=== PATIENT | female | born 1955 | race Caucasian/White ===

== ENCOUNTER 2020-05-31 10:49 | Outpatient (CLI) | payer OTHER, SELFPAY ==
--- NOTE | 2020-05-31 10:54 | MM_ITS ---
WS: [id number] BILATERAL DIGITAL SCREENING MAMMOGRAPHY WITH CAD CLINICAL INFORMATION: SCREENING HISTORY: Screening mammogram. No current complaints. COMPARISON: April 20, 2019 TECHNIQUE: Bilateral CC and MLO views. FINDINGS: The breasts are composed of heterogeneous fibroglandular density tissue, which can limit the detectio n of small underlying mass lesions. No suspicious mass, asymmetry, calcifications, or architectural d istortion. No evidence of malignancy. Punctate calcifications left breast MM/[id number] IMPRESSION: BI-RADS: 2-Benign FOLLOW UP: 1 Year Follow-up Recommend return to annual screening mammography.
== END 2020-05-31 10:50 | disposition home or self-care (01) ==
LOC: RADSHAW 10:52
PROVIDERS: PCP Nurse Practitioner; Visit Provider Nurse Practitioner
DX: Z12.31 Encounter for screening mammogram for malignant neoplasm of breast (principal)
CPT/HCPCS: 77067

== ENCOUNTER 2021-06-03 08:09 | Outpatient (CLI) | payer OTHER, SELFPAY ==
--- NOTE | 2021-06-03 08:17 | MM_ITS ---
WS: [id number] Bilateral screening digital mammogram, 06/03/2021 Clinical Data: SCREENING Comparison: 05/31/2020, 06/01/2019, 04/25/2019. Findings: The breast parenchymal pattern shows heterogeneous density No spiculated masses or clustered calcific ations are seen. There are no secondary signs of carcinoma. MM/[id number] Impression: 1. Negative bilateral mammogram unchanged. 2. Recommend annual screening mammograms. BIRADS: 1-Negative FOLLOW UP: 1 Year Follow-up The CAD ends down checker was used.
== END 2021-06-03 08:10 | disposition home or self-care (01) ==
LOC: RADSHAW 08:12
PROVIDERS: PCP Nurse Practitioner; Visit Provider Nurse Practitioner
DX: Z12.31 Encounter for screening mammogram for malignant neoplasm of breast (principal)
CPT/HCPCS: 77067

== ENCOUNTER 2022-02-19 09:18 | Inpatient (IN) | payer OTHER, SELFPAY ==
[2022-02-19] VITALS (20 sets, daily range): BP systolic 105–128; BP diastolic 55–72; PULSE 83–98; RESP 16–91; TEMP 38.2–38.6; O2SAT 90–98; BMI 22.6
--- NOTE | 2022-02-19 09:32 | ED_ITS ---
HPI - Fever General: Chief Complaint: Fever Stated Complaint: fever, cough , chills Time Seen by Provider: 02/19/22 09:32 History of Present Illness: Ms. Tucker is a 66-year-old lady with history of hypertension, hyperlipidemia who presents to the emergency department due to fever and generalized symptoms. Onset of symptoms was 10 days ago and gradual. She endorses daily symptoms which have waxed and waned in intensity and are currently moderate. She endorses generalized malaise, cough which is nonproductive, fevers, nausea. Overall course of symptoms has persisted. No ot her specific changes in health, exacerbating, or alleviating factors identified. Onset (ago): day(s) Measured temperature: 103 F Associated symptoms: Reports cough and nausea Review of Systems General: Reports: 10 or more systems reviewed and unremarkable except in HPI and below GI: Reports: nausea PFSH ED PFSH: Medical History (Updated 03/04/22 @ 15:01 by Bo Anton MD) Hyperlipidemia Hypertension Hypothyroidism Surgical History (Updated 02/27/22 @ 09:22 by Sylvester Dyer MD) History of hysterectomy with bilateral oophorectomy [place], [place] History of tonsillectomy S/P bronchoscopy (02/20/22) Bronchoscopy with EBUS Family History (Updated 02/27/22 @ 08:41 by Nieves Santa LPN) Mother Cancer ovarian Father Dementia Other CAD (coronary artery disease) Hyperlipidemia Hypertension Denies family history of Clotting disorder Psychiatric illness Chronic kidney disease (CKD) Suicide Anesthesia complication Bleeding disorder Lung disease Stroke Social History (Updated 02/27/22 @ 08:41 by Nieves Santa LPN) Smoking and tobacco status: former smoker Quit status (tobacco): has quit using tobacco Former quit date comment: Patient started smoking at age 20, smoked until 8 years ago Alcohol intake: never Physical Exam Const: COMMON NORMALS: alert GENERAL APPEARANCE: cooperative, well developed and ill appearing (somewhat) HENMT: COMMON NORMALS: normocephalic and atraumatic HEAD & SCALP: normocephalic and atraumatic Eye: COMMON NORMALS: conjunctivae normal CONJUNCTIVA: Yes conjunctivae normal SCLERA: sclerae normal Neck/C-Spine: COMMON NORMALS: supple GENERAL: Yes trachea midline Resp: EFFORT & INSPECTION: Yes able to speak in complete sentences AUSCULTATION: diminished lung sounds Cardio: COMMON NORMALS: regular rate and regular rhythm RATE: regular rate RHYTHM: regular rhythm GI: COMMON NORMALS: Soft to palpation PALPATION: Yes Soft to palpation and No Tenderness to palpation present (GI) PERCUSSION: normal to percussion Extremity: GENERAL: Yes normal exam except as noted and No edema Neuro: COMMON NORMALS: moves all extremities SENSORIUM/ORIENTATION: Yes alert and No Orientation impaired Psych: COMMON NORMALS: mental status grossly normal and Normal thought process present THOUGHT PROCESS: Normal thought process present Course ED course: - Patient was seen and evaluated by me at bedside - Patient placed on cardiac monitors, IV access obtained - Initial evaluation notable for exam as above, ill appearance - Labs and xrays personally interpreted by me - Antibiotics and fluids ordered - Labs notable for leukocytosis, normal hemoglobin. Metabolic panel with evidence of dehydration. Magnesium and potassium replenishment ordered. Transaminitis of uncertain etiology possibly secondary to overall illness. - Imaging notable for large region of consolidation in atypical location in the left upper lobe. Given location further characterization with CT imaging felt to be warranted. Additionally given transaminitis abdomen pelvis was included. Left hilar mass and lymphadenopathy suspicious patient with postobstructive pneumonia. Results were discussed with the patient including likely diagnosis of cancer. - Upon serial reexamination after treatment the patient was only mildly improved. She does have a new oxygen requirement. Given evidence of sepsis patient requires further inpatient management for IV antibiotics. - Based on patient history, evaluation, and testing as interpreted the most likely cause of the patient's condition is postobstructive pneumonia secondary to newly identified lung cancer/mass with evidence of sepsis and new oxygen requirement - The results of ED evaluation were discussed with the patient including plan for admission due to requirement for level of care not available if discharged to prevent significant worsening/deterioration. - Admitting service was contacted and Dr Vidal with the hospitalist service agreed to admit the patient. Pulmonology consulted. - Patient was admitted without further deterioration or significant events. Note: Click bubbles or prepopulated pérez in note writing are used for assistance with data collection and billing and are inherently more limited than narrative and other text portions of this note. Please use narrative for additional clinical history and defer to narrative/free test for any case of contradictory information. If information appears in only free text or click bubble it should be considered present or absent as reported. Please contact note procedure writer for clarifications of clinical information or contradictory information. MDM is a brief summary, contradictory or erroneous seeming information should be clarified and full note should be reviewed. Vital Signs: Vital signs: Vital Signs Temperature 98.0 F 02/23/22 07:41 Pulse Rate 93 02/23/22 08:41 Respiratory Rate 17 02/23/22 08:00 Blood Pressure 92/58 02/23/22 07:41 Pulse Oximetry 96 02/23/22 08:42 MDM - Fever Medical Decision Making 66-year-old lady presented with respiratory symptoms. Patient found to have likely new lung cancer with postobstructive pneumonia and sepsis. Admitted for further management. Medical Records I reviewed the patient's medical records. Lab Data I reviewed the patient's lab results. : 02/23/22 03:02 02/23/22 03:02 Radiology Impressions Chest X-Ray 02/19/22 09:52 IMPRESSION: 1. Large consolidated density with associated pleural thickening seen in the left upper lobe and left suprahilar region. This may represent densely consolidated pneumonia or a mass. 2. Fibrous scarring seen in the right upper lobe but the right lung is otherwise clear. Chest/Abdomen/Pelvis CT 02/19/22 10:41 IMPRESSION: 1. Partial LEFT upper lobe collapse with dense consolidation and a few air bronchograms proximally. LEFT hilar mass or lymphadenopathy measuring 2.3 x 2.5 CM suspicious for neoplasm. Recommend further evaluation with bronchoscopy 4 2. No anterior mediastinal or RIGHT hilar lymphadenopathy. 3. No evidence of metastatic disease in the abdomen or pelvis on this noncontrast examination. 4. Peripherally calcified low-attenuation RIGHT renal lesion likely renal cyst measuring 1.8 cm. This can be further evaluated ultrasound. 5. No other acute findings. Laboratory Results WBC 17.1 10^3/uL (4.0-10.0) H 02/19/22 09:48 RBC 4.11 10^6/uL (4.1-5.3) 02/19/22 09:48 Hgb 11.7 g/dL (11.5-15.3) 02/19/22 09:48 Hct 33.3 % (37.0-47.0) L 02/19/22 09:48 MCV 81.0 fl (81-99) 02/19/22 09:48 MCH 28.5 pg (28.0-34.0) 02/19/22 09:48 MCHC 35.1 g/dL (30.0-36.0) 02/19/22 09:48 RDW 12.1 % (12.1-15.1) 02/19/22 09:48 Plt Count 476 10^3/cmm (130-400) H 02/19/22 09:48 MPV 8.8 fL (7.4-10.4) 02/19/22 09:48 Neut % (Auto) 79.4 % 02/19/22 09:48 Lymph % (Auto) 10.4 % 02/19/22 09:48 [place] % (Auto) 7.9 % 02/19/22 09:48 Eos % (Auto) 1.1 % 02/19/22 09:48 Baso % (Auto) 0.5 % 02/19/22 09:48 Neut # (Auto) 13.60 10^3/uL (1.8-7.7) H 02/19/22 09:48 Lymph # (Auto) 1.8 10^3/uL (0.8-4.8) 02/19/22 09:48 [place] # (Auto) 1.4 10^3/uL (0.2-0.9) H 02/19/22 09:48 Eos # (Auto) 0.2 10^3/uL (0.0-0.8) 02/19/22 09:48 Baso # (Auto) 0.1 10^3/uL (0.0-0.1) 02/19/22 09:48 Nucleated RBC % (auto) 0 % 02/19/22 09:48 Nucleated RBCs # 0.0 /100WBC 02/19/22 09:48 Sodium 131 mmol/L (136-145) L 02/19/22 09:48 Potassium 3.0 mmol/L (3.5-5.1) L 02/19/22 09:48 Chloride 89 mmol/L (98-107) L 02/19/22 09:48 Carbon Dioxide 28 mmol/L (22-29) 02/19/22 09:48 Anion Gap 17.0 (5-19) 02/19/22 09:48 BUN 12 mg/dL (8-23) 02/19/22 09:48 Creatinine 0.7 mg/dL (0.5-0.9) 02/19/22 09:48 GFR Calculation 84.2 mL/min (90-130) L 02/19/22 09:48 Glucose 114 mg/dL (65-115) 02/19/22 09:48 Calculated Osmolality 273 mOsm/kg (285-295) L 02/19/22 09:48 Lactic Acid 0.8 mmol/L (0.5-2.2) 02/19/22 10:48 Calcium 8.7 mg/dL (8.5-10.5) 02/19/22 09:48 Magnesium 1.6 mg/dL (1.7-2.3) L 02/19/22 09:48 Total Bilirubin 0.6 mg/dL (0.15-1.2) 02/19/22 09:48 AST 117 U/L (0-32) H 02/19/22 09:48 ALT 158 U/L (0-33) H 02/19/22 09:48 Alkaline Phosphatase 441 IU/L (35-105) H 02/19/22 09:48 Total Protein 7.2 g/dL (6.6-8.7) 02/19/22 09:48 Albumin 3.3 g/dL (3.5-5.2) L 02/19/22 09:48 Globulin 3.9 g/dL (1.3-4.6) 02/19/22 09:48 Procalcitonin 0.28 ng/mL (0-0.5) 02/19/22 09:38 TSH 1.76 uIU/mL (0.27-4.20) 02/19/22 09:48 Urine Color Yellow (Yellow) 02/19/22 10:24 Urine Appearance Clear (CLEAR) 02/19/22 10:24 Urine pH 8 (5-7) H 02/19/22 10:24 Ur Specific [place] 1.005 (1.005-1.030) 02/19/22 10:24 Urine Protein Neg (Negative) 02/19/22 10:24 Urine Glucose (UA) Norm (Normal) 02/19/22 10:24 Urine Ketones Negative (Negative) 02/19/22 10:24 Urine Blood Neg (Negative) 02/19/22 10:24 Urine Nitrate Positive (Negative) H 02/19/22 10:24 Urine Bilirubin Neg (Negative) 02/19/22 10:24 Prot Sulfosalicylic Acd Negative (Negative) 02/19/22 10:24 Urine Urobilinogen Norm mg/dL (Negative) 02/19/22 10:24 Ur Leukocyte Esterase Negative (Negative) 02/19/22 10:24 Urine RBC None /hpf (0-2) 02/19/22 10:24 Urine WBC 5-10 /hpf (0-5) H 02/19/22 10:24 Ur Squamous Epith Cells 0-4 /hpf (0-5) H 02/19/22 10:24 Amorphous Sediment Not Reportable 02/19/22 10:24 Urine Bacteria 3+ /hpf (NONE) H 02/19/22 10:24 Coronavirus 229E (PCR) Not detected (NOT DETECT) 02/19/22 09:48 SARS-CoV-2 (PCR) Not detected (NOT DETECT) 02/19/22 09:48 Discharge Plan Discharge Patient Disposition: Placed in Observation Admit Provider: Farhad Vidal Clinical Impression: Community acquired pneumonia, Sepsis, Mass of left lung, Acute respiratory failure with hypoxia Discharge Diet: Regular Discharge Activity: Increase activity as tolerated Coding Level of Care Code ED Multi Share Program Coordinator for Chg Fwd Exam Comprehensive
--- NOTE | 2022-02-19 09:52 | XR_ITS ---
WS: [id number] Exam: XR chest 2V* [id number] Date/Time of Exam: 02/19/2022 9:55 AM Reason For Exam: sob, cough, fever No priors. Large consolidated density seen in the left upper lobe and left suprahilar region. The right lung is clear. Left apical pleural thickening noted. No pleural effusions. Heart size is normal. Bony structu res are intact. Recommendations: Contrast CT scanning of the chest recommended for further workup. XR/XR chest 2V* [id number] IMPRESSION: 1. Large consolidated density with associated pleural thickening seen in the le ft upper lobe and left suprahilar region. This may represent densely consolidat ed pneumonia or a mass. 2. Fibrous scarring seen in the right upper lobe but the right lung is otherwis e clear.
[2022-02-19 09:57] LABS: Basophils # 0.1 10^3/uL (0.0-0.1); Basophils % 0.5 %; Eosinophils # 0.2 10^3/uL (0.0-0.8); Eosinophils % 1.1 %; Hematocrit 33.3 % (37.0-47.0); Hemoglobin 11.7 g/dL (11.5-15.3); Lymphocytes # 1.8 10^3/uL (0.8-4.8); Lymphocytes % 10.4 %; Mean Corpuscular HGB Conc 35.1 g/dL (30.0-36.0); Mean Corpuscular Hemoglobin 28.5 pg (28.0-34.0); Mean Platelet Volume 8.8 fL (7.4-10.4); Monocytes # 1.4 10^3/uL (0.2-0.9); Monocytes % 7.9 %; Neutrophils % 79.4 %; Nucleated Red Blood Cells % 0 %; Platelet Count 476 10^3/cmm (130-400); Red Blood Count 4.11 10^6/uL (4.1-5.3); Red Cell Distribution Width 12.1 % (12.1-15.1); White Blood Count 17.1 10^3/uL (4.0-10.0)
[2022-02-19 10:23] LABS: Alanine Aminotransferase 158 U/L (0-33); Albumin Level 3.3 g/dL (3.5-5.2); Alkaline Phosphatase 441 IU/L (35-105); Aspartate Amino Transferase 117 U/L (0-32); Blood Urea Nitrogen 12 mg/dL (8-23); Calcium 8.7 mg/dL (8.5-10.5); Carbon Dioxide 28 mmol/L (22-29); Chloride 89 mmol/L (98-107); Globulin 3.9 g/dL (1.3-4.6); Glomerular Filtration Rate 84.2 mL/min (90-130); Glucose 114 mg/dL (65-115); Osmolality Calculated 273 mOsm/kg (285-295); Sodium 131 mmol/L (136-145); Thyroid Stimulating Hormone 1.76 uIU/mL (0.27-4.20); Total Bilirubin 0.6 mg/dL (0.15-1.2); Total Protein 7.2 g/dL (6.6-8.7)
--- NOTE | 2022-02-19 10:41 | CT_ITS ---
WS: [id number] CT CHEST, ABDOMEN, AND PELVIS TECHNIQUE: Noncontrast CT of the chest, abdomen, and pelvis with coronal and sagittal reformatted destin ges. CLINICAL INFORMATION: MONTSE abnormal on cxr, eval mass vs pneumonia COMPARISON: None. DLP: 994.[address] scans at [facility] use at least one of these dose optimization techniques: automated e xposure control; mA and/or kV adjustment per patient size (includes targeted exams where dose is matc hed to clinical indication); or iterative reconstruction. CT CHEST: Wedge-shaped LEFT upper lobe consolidation and collapse corresponds to the chest x-ray findings. Dens e consolidation in the LEFT lung apex suspicious with a few air bronchograms proximally.Associated na rrowing of the LEFT upper lobe bronchi. LEFT mainstem bronchus remains patent. Suggestion of LEFT hil ar mass/lymphadenopathy difficult to further evaluated without contrast. This measures approximately 2.3 x 2.5 CM.Recommend further evaluation with bronchoscopy. Normal caliber thoracic aorta. No axillary lymphadenopathy. Additional patchy infiltrates involving the remainder of the LEFT upper lobe anteriorly and laterally . LEFT lower lobe is well aerated. RIGHT lung is well aerated. Moderate chronic erythematous changes. Trace RIGHT pleural effusion. CT ABDOMEN AND PELVIS: Mild hepatomegaly. Noncontrast liver otherwise appears normal. Normal spleen. Small esophageal hiatal hernia. Adrenal glands are normal. No hydronephrosis in either kidney. Nonobstructing subcentimeter LEFT calyceal tip calculi. Noncontrast pancreas appears normal. Normal caliber abdominal aorta. Aortic calcification. No periaor tic lymphadenopathy. Shotty periaortic lymph nodes. Normal sigmoid colon. Normal appendix in the RIGHT lower quadrant. Tiny fat-containing umbilical michel ia. Partially calcified low-attenuation RIGHT renal lesion measuring 2 cm likely renal cyst. This can be followed up with ultrasound. CT/[place] [id number] IMPRESSION: 1. Partial LEFT upper lobe collapse with dense consolidation and a few air bro nchograms proximally. LEFT hilar mass or lymphadenopathy measuring 2.3 x 2.5 CM suspicious for neoplasm. Recommend further evaluation with bronchoscopy 4 2. No anterior mediastinal or RIGHT hilar lymphadenopathy. 3. No evidence of metastatic disease in the abdomen or pelvis on this noncontr ast examination. 4. Peripherally calcified low-attenuation RIGHT renal lesion likely renal cyst measuring 1.8 cm. This can be further evaluated ultrasound. 5. No other acute findings.
[2022-02-19] MEDS: cefTRIAXone 1,000 MG in sodium chloride 0.9% (plus) 50 ML 100 MG IV (10:46)
[2022-02-19] MEDS: sodium chloride 0.9% 1,000 ML 999 ML IV ×2 (10:49→12:55)
[2022-02-19 10:51] LABS: Specific Gravity, Urine 1.005 (1.005-1.030); Urine Appearance Clear (CLEAR); Urine Color Yellow (Yellow); pH Urine 8 (5-7)
[2022-02-19 10:52] LABS: Add Urine Microscopic? YES; Bilirubin Urine Neg (Negative); Blood Urine Neg (Negative); Glucose Urine UA Norm (Normal); Ketones Urine Negative (Negative); Leukocyte Esterase Urine Negative (Negative); Nitrate Urine Positive (Negative); Protein Urine Neg (Negative); Urobilinogen Urine Norm (Negative)
[2022-02-19 10:53] LABS: Add Urine Culture? Yes; Bacteria Urine 3+ /hpf; Squamous Epithelial Cell Urine 0-4 /hpf (0-5); Sulfosalicylic Acid Urine Negative (Negative)
[2022-02-19] MEDS: potassium chloride ER 20 mEq Tablet 40 MEQ PO (11:29)
[2022-02-19] MEDS: doxycycline 100 MG in sodium chloride 0.9% (plus) 100 ML IV (11:30)
[2022-02-19 11:38] LABS: Lactic Sepsis W/Reflex 0.8 mmol/L (0.5-2.2)
[2022-02-19 11:54] LABS: Adenovirus Not Detected (NOT DETECT); Chlamydia Pneumoniae Not Detected (NOT DETECT); Coronavirus 229E,HKU1,NL63,OC4 Not Detected (NOT DETECT); Human Metapneumovirus Not Detected (NOT DETECT); Human Rhinovirus/Enterovirus Not Detected (NOT DETECT); Influenza A Not Detected (NOT DETECT); Influenza A H1 Not Detected (NOT DETECT); Influenza A H1-2009 Not Detected (NOT DETECT); Influenza A H3 Not Detected (NOT DETECT); Influenza B Not Detected (NOT DETECT); Mycoplasma Pneumoniae Not Detected (NOT DETECT); Parainfluenza Virus Type 1 Not Detected (NOT DETECT); Parainfluenza Virus Type 2 Not Detected (NOT DETECT); Parainfluenza Virus Type 3 Not Detected (NOT DETECT); Parainfluenza Virus Type 4 Not Detected (NOT DETECT); Respiratory Syncytial Virus A Not Detected (NOT DETECT); Respiratory Syncytial Virus B Not Detected (NOT DETECT); SARS-COV-2 Not Detected (NOT DETECT)
[2022-02-19 12:08] LABS: Magnesium 1.6 mg/dL (1.7-2.3)
--- NOTE | 2022-02-19 13:12 | PM.HP ---
Providers/Chief Complaint Primary Care Provider: HERNANDEZ Ferreira Chief Complaint: fever, cough , chills History of Present Illness Des Tucker is a 66 year old female who carries history of smoking, she started smoking when she was 20 years old and Smoking until 8 years ago, no use of alcohol, does not carry significant past medical history presented today with chief complaint of not feeling well generalized fatigue and lethargy. Patient is stating that her symptoms started on Wednesday last week with fatigue, lethargy and febrile episodes. She is endorsing unintentional weight loss, night sweats. She has not noticed any chest pain, nausea, vomiting or diarrhea. She does not use any medications other than antihypertensive and statins at home. No one else at home has been diagnosed with COVID. No one else at home has similar symptoms. Diagnostics in the ER revealed sepsis related to postobstructive pneumonia, I have requested lactic acid, requested ER physician to give another 1 L bolus as per septic protocol Blood cultures have been taken, I will start her on broad-spectrum antibiotics transfer her to ICU Dr. Mann planning for bronchoscopy 12:30 PM tomorrow All of her questions were answered, sister was at the bedside COVID swab requested, I am also requesting MRSA PCR Review of Systems Const: Reports: fever(s), chills, body aches, change in appetite, change in weight, fatigue, malaise and night sweats Eyes: Denies: change in vision ENMT: Denies: throat pain Card: Denies: chest pain Resp: Reports: dyspnea and non-productive cough GI: Denies: abdominal pain : Denies: flank pain Musc: Denies: neck pain Skin/Breast: Denies: rash Neuro: Denies: headache(s) Psych: Denies: anxiety Endo: Denies: polyuria Pranav/Lymph: Denies: easy bruising All/Imm: Denies: urticaria Medications/Allergies Home Medications Medication Instructions Recorded Confirmed Last Taken Type amlodipine 2.5 mg tablet 2.5 mg PO DAILY 02/19/22 02/19/22 02/18/22 History atorvastatin 20 mg tablet 10 mg PO DAILY 02/19/22 02/19/22 02/18/22 History hydrochlorothiazide 25 mg tablet 25 mg PO DAILY 02/19/22 02/19/22 02/18/22 History levothyroxine 100 mcg tablet 100 mcg PO DAILY 02/19/22 02/19/22 02/18/22 History potassium chloride 20 mEq 10 meq PO DAILY 02/19/22 02/19/22 02/18/22 History tablet,extended release Allergies Allergy/AdvReac Type Severity Reaction Status Date / Time Penicillins Allergy ALGY-Rash Verified 02/19/22 09:27 PFSH Acute PFSH: Medical History Hyperlipidemia Hypertension Surgical History No significant past surgical history Family History (Updated 02/19/22 @ 14:33 by Farhad Vidal MD) Denies family history of Lung disease Social History (Updated 02/19/22 @ 14:33 by Farhad Vidal MD) Smoking and tobacco status: former smoker Quit status (tobacco): has quit using tobacco Former quit date comment: Patient started smoking at age 20, smoked until 8 years ago Vitals/I&O/Wt Last Vital Signs Temp 101.5 F H 02/19/22 09:23 Pulse 89 02/19/22 09:42 Resp 91 H 02/19/22 09:23 BP 116/66 02/19/22 09:42 Pulse Ox 91 02/19/22 09:42 02/18/22 02/19/22 02/19/22 22:59 06:59 14:59 Intake Total 1150 / 1150 Balance 1150 / 1150 Weight last 48 hrs Weight 63.503 kg Physical Exam Narrative: Very pleasant middle-aged female Nonfocal neuro exam Saturating well on 2 L nasal cannula Febrile Tachycardic Septic No conversational dyspnea Bilateral breath sounds slightly diminished on left side on posterior lung auscultation I did not appreciate crackles or rhonchi Abdomen soft No signs of edema Nonfocal neuro exam Very pleasant and cooperative Sister at the bedside S1, S2 No murmur appreciated Cold sore/aphthous ulcer below her lower lip does not look like shingles vesicles Data : 02/19/22 09:48 02/19/22 09:48 Micro: Microbiology 02/19/22 10:48 Blood Culture - Preliminary Blood SPECIMEN COLLECTED 02/19/22 10:48 Blood Culture - Preliminary Blood SPECIMEN COLLECTED A&P Assessment and plan (1) Community acquired pneumonia: Status: Acute (2) Sepsis: Status: Acute (3) Mass of left lung: Status: Acute (4) Hyperlipidemia: Status: Acute (5) Hypertension: Status: Acute (6) Postobstructive pneumonia: Status: Acute Plan Sepsis related to Postobstructive pneumonia Patient has been endorsing B-cell symptoms such as fever, night sweats, weight loss Lung mass Significant smoking history Start patient on broad-spectrum antibiotics Requested COVID and MRSA PCR Broad-spectrum antibiotics with IV fluid Septic bolus has been given in the ER, requested lactic acid Sepsis criteria met with leukocytosis, fever, Hypomagnesemia: Repleted Hypokalemia: Repleted patient is denying vomiting and diarrhea Her sodium is 131 clinically does show signs of dehydration, start gentle fluid hydration Abnormal transaminases CT scan of abdomen did not show any mets, hepatomegaly, check lipid panel and hemoglobin A1c, History of hypertension: Currently she is normotensive Patient is full code Regular diet n.p.o. after midnight for bronchoscopy tomorrow Dr. Mann is consulted DVT prophylaxis on hold for bronchoscopy tomorrow Attestations Medical Necessity Statement*: Anticipating more than 2 midnights for management of sepsis related to postoperative pneumonia, Time Spent in Patient Care: 40 Coding Level of Care Code Acute Web Editor for Nhung Contreras Diagnoses Community acquired pneumonia J18.9 Sepsis A41.9 Mass of left lung R91.8 Hyperlipidemia E78.5 Hypertension I10 Postobstructive pneumonia J18.9
--- NOTE | 2022-02-19 14:38 | USCV_ITS ---
Des Tucker Age: 66 Gender: F : 1955 Exam Date: 02/19/2022 15:46 Ordering Phys: Farhad Vidal MD Technologist: MISAEL Exam Location: [facility] – [place] Indication: Lung mass BP: 117 / 56 HR: 83 Rhythm: Sinus Technical Quality: Adequate MEASUREMENTS (Male / Female) Normal Values 2D ECHO LV Diastolic Diameter PLAX 3.7 cm 4.2 - 5.9 / 3.9 - 5.3 cm LV Systolic Diameter PLAX 2.5 cm IVS Diastolic Thickness 0.9 cm 0.6 - 1.0 / 0.6 - 0.9 cm IVS Systolic Thickness 1.4 cm LVPW Diastolic Thickness 1.3 cm 0.6 - 1.0 / 0.6 - 0.9 cm LVPW Systolic Thickness 1.8 cm RV Chamber Size 2.5 cm LVOT Diameter 2.0 cm LV Ejection Fraction 2D Teich 61.1 % LV Ejection Fraction MOD 2C 71.4 % LV Ejection Fraction 2C AL 72.5 % LA Diameter 2.9 cm LA Width 2.8 cm LA Height 3.9 cm RA Width 2.2 cm RA Height 3.5 cm Aorta at Sinotubular Diameter 2.6 cm IVC Diameter 2.2 cm M-MODE Aortic Annulus Diameter 3.3 cm LA Ao Ratio MM 0.9 MV E Point Septal Separation 0.5 cm DOPPLER AV Peak Velocity 134.0 cm/s LVOT Peak Velocity 105.0 cm/s AV Area Cont Eq vti 2.3 cm squared AV Area Cont Eq pk 2.5 cm squared MV Area PHT 4.2 cm squared Mitral E to A Ratio 0.9 MV E' Velocity 46.0 cm/s Mitral E to MV E' Ratio 5.7 Mitral E to LV E' Lateral Ratio 6.8 Mitral E to LV E' Septal Ratio 5.0 TR Peak Velocity 245.3 cm/s TR Peak Gradient 24.1 mmHg TR Mean Velocity 197.0 cm/s TR Mean Gradient 17.3 mmHg TR Velocity Time Integral 62.4 cm TV Peak E Velocity 49.0 cm/s Right Atrial Pressure 3.0 mmHg Pulmonary Artery Systolic Pressu 27.1 mmHg PV Peak Velocity 92.0 cm/s RV Acceleration Time 0.1 s RV Ejection Time 0.3 s RV AcT/ET 0.4 FINDINGS Left Ventricle Normal left ventricular size, systolic function and wall thickness, with no regional wall motion abnormalities. Left ventricular ejection fraction is estimated at 64 %. Normal diastolic function. Right Ventricle Normal right ventricular size and systolic function. Right ventricular systolic pressure 36 mmHg. Right Atrium Normal right atrial size. Left Atrium Normal left atrial size. Mitral Valve Structurally normal mitral valve. No mitral valve stenosis. Trace mitral valve regurgitation. Aortic Valve Structurally normal trileaflet aortic valve. No aortic valve stenosis. No aortic valve regurgitation. Tricuspid Valve Structurally normal tricuspid valve. No tricuspid valve stenosis. Trace tricuspid valve regurgitation. Pulmonic Valve Structurally normal pulmonic valve. No pulmonary valve stenosis. Trace pulmonary valve regurgitation. Pericardium No pericardial effusion. Aorta Normal size aortic root and proximal ascending aorta. IVC Mildly dilated IVC. Normal respiratory variation. CONCLUSIONS 1. Normal left ventricular size, systolic function and wall thickness, with no regional wall motion abnormalities. Left ventricular ejection fraction is estimated at 64 %. Normal diastolic function. 2. Normal right ventricular size and systolic function. 3. Upper normal pulmonary artery pressure. 4. No significant valve abnormalities. 5. No prior similar studies to compare. Brittany Rivera MD (Electronically Signed) Final Date: 19 February 2022 16:52 S
[2022-02-19] MEDS: potassium chloride ER 20 mEq Tablet PO (15:24)
[2022-02-19] MEDS: sodium chloride 0.9% 1,000 ML 75 ML IV (15:24)
[2022-02-19] MEDS: aztreonam 1,000 MG in sodium chloride 0.9% (plus) 50 ML 100 MG IV (15:49)
[2022-02-19] MEDS: clindamycin 600 MG/50 ML PREMIX 100 MG IV ×2 (15:50→22:16)
[2022-02-19 16:01] LABS: Procalcitonin 0.28 ng/mL (0-0.5)
[2022-02-19] MEDS: vancomycin 1,000 MG in sodium chloride 0.9% 250 ML 250 MG IV (16:30)
[2022-02-19 17:06] LABS: Lactic Sepsis W/Reflex 1.1 mmol/L (0.5-2.2)
--- NOTE | 2022-02-19 18:30 | PC.NURSE ---
Pt resting in bed, 1LNC in use. Denies any needs. VSS. Remains slightly febrile. Ambulates to bathroom with minimal assist. Will monitor.
[2022-02-19] MEDS: ipratropium-albuterol 3 mL Neb INHALATION (20:05)
[2022-02-19] MEDS: budesonide 0.5 mg/2 mL Neb INHALATION (20:05)
[2022-02-19] MEDS: acetaminophen 500 mg Tablet PO (22:16)
[2022-02-20] VITALS (31 sets, daily range): BP systolic 81–124; BP diastolic 51–66; PULSE 65–96; RESP 4–35; TEMP 36.4–39.1; O2SAT 85–99
[2022-02-20] MEDS: aztreonam 1,000 MG in sodium chloride 0.9% (plus) 50 ML 100 MG IV ×2 (02:30→14:58)
[2022-02-20] MEDS: sodium chloride 0.9% 1,000 ML 75 ML IV ×2 (04:39→20:13)
[2022-02-20] MEDS: acetaminophen 500 mg Tablet PO (04:58)
[2022-02-20 05:02] LABS: ABG PCO2 31.4 mmHg (35-45); ABG PH Result 7.54 (7.35-7.45); Arterial Blood Gas Hematocrit 46.6 % (37-47); Base Excess ABG 4.5 mmol/L (-2.0-2.0); Blood Gas Operator Identificat JB; Blood Gas Sample Site Brachial, right; Blood Gas Sample Type Arterial; HCO3 ABG 26.6 mmol/L (22-26); Oxygen Device ROOM AIR; PO2 ABG 48.3 mmHg (80.0-100.0)
[2022-02-20 05:47] LABS: Basophils # 0.1 10^3/uL (0.0-0.1); Basophils % 0.4 %; Eosinophils % 0.2 %; Hematocrit 29.4 % (37.0-47.0); Hemoglobin 10.2 g/dL (11.5-15.3); Lymphocytes # 1.3 10^3/uL (0.8-4.8); Lymphocytes % 6.9 %; Mean Corpuscular HGB Conc 34.7 g/dL (30.0-36.0); Mean Corpuscular Hemoglobin 28.3 pg (28.0-34.0); Mean Corpuscular Volume 81.4 fl (81-99); Mean Platelet Volume 9.2 fL (7.4-10.4); Monocytes # 1.1 10^3/uL (0.2-0.9); Monocytes % 5.8 %; Neutrophils # 15.54 10^3/uL (1.8-7.7); Neutrophils % 85.8 %; Nucleated Red Blood Cells % 0 %; Platelet Count 413 10^3/cmm (130-400); Red Blood Count 3.61 10^6/uL (4.1-5.3); Red Cell Distribution Width 12.3 % (12.1-15.1); White Blood Count 18.1 10^3/uL (4.0-10.0)
[2022-02-20] MEDS: lanolin oint 7 gm 1 APPLIC TOPICAL (06:05)
[2022-02-20 06:07] LABS: Anion Gap 15.9 (5-19); Blood Urea Nitrogen 9 mg/dL (8-23); C Reactive Protein 164.9 mg/L (0.0-4.9); Calcium 7.8 mg/dL (8.5-10.5); Carbon Dioxide 24 mmol/L (22-29); Chloride 99 mmol/L (98-107); Glomerular Filtration Rate 100.6 mL/min (90-130); Glucose 118 mg/dL (65-115); Magnesium 1.4 mg/dL (1.7-2.3); Osmolality Calculated 282 mOsm/kg (285-295); Phosphorus 1.8 mg/dL (2.5-4.5); Sodium 136 mmol/L (136-145)
[2022-02-20 06:16] LABS: Potassium 2.9 mmol/L (3.5-5.1)
[2022-02-20] MEDS: clindamycin 600 MG/50 ML PREMIX 100 MG IV (06:47)
[2022-02-20] MEDS: lidocaine 1% 5 ML in potassium chloride premix 100 ML 25 ML IV (06:57)
[2022-02-20] MEDS: levothyroxine 100 mcg Tablet PO (07:59)
[2022-02-20] MEDS: ipratropium-albuterol 3 mL Neb INHALATION ×2 (08:06→19:50)
[2022-02-20] MEDS: budesonide 0.5 mg/2 mL Neb INHALATION ×2 (08:06→19:50)
--- NOTE | 2022-02-20 09:27 | P.CONIM_ITS ---
Providers/Reason For Consult Consulting Physician/Specialty*: Pulmonary critical care medicine Reason for Consult*: Suspected lung cancer, postobstructive pneumonia Requesting Physician: Farhad Vidal MD Attending Physician: Farhad Vidal MD Primary Care Provider: HERNANDEZ Ferreira History of Present Illness History of Present Illness Des Tucker is a 66 year old female who came in yesterday with a complaints of generalized fatigue, weakness, fever. The patient has an extensive history of smoking. She quit smoking approximately 10 years ago. A chest x-ray in the emergency department revealed consolidation in the left upper lobe. This was followed by CT scan of the chest. The CT chest revealed masslike consolidative lesion in the left upper lobe primarily involving the anterior and apical segments. There is narrowing of the airways. This looks more like malignancy than consolidation. There is also a left hilar lymph node. The CT abdomen pelvis did not reveal any obvious sign of metastatic lesion. The patient was seen and examined in the ICU. The patient tells me that she is doing better than before. The patient was hypotensive and was treated with IV fluid. The patient is scheduled for bronchoscopic evaluation today. Review of Systems Narrative: General: Fever, night sweats, chills, body ache, loss of appetite, weight loss Skin: No rash HEENT: No nasal congestion, rhinitis, sinusitis Neck: There is no neck swelling Respiratory: Cough, sputum production, no hemoptysis Cardiovascular: No chest pain, orthopnea, paroxysmal nocturnal dyspnea Gastrointestinal: No abdominal pain, nausea, vomiting Musculoskeletal: No joint pain or swelling, muscle weakness Neurological: Patient is awake alert and oriented x3, no paralysis, gross motor function is normal. Psychiatric: No anxiety or depression. Medications/Allergies Home Medications Medication Instructions Recorded Confirmed Last Taken Type amlodipine 2.5 mg tablet 2.5 mg PO DAILY 02/19/22 02/19/22 02/18/22 History atorvastatin 20 mg tablet 10 mg PO DAILY 02/19/22 02/19/22 02/18/22 History hydrochlorothiazide 25 mg tablet 25 mg PO DAILY 02/19/22 02/19/22 02/18/22 History levothyroxine 100 mcg tablet 100 mcg PO DAILY 02/19/22 02/19/22 02/18/22 History potassium chloride 20 mEq 10 meq PO DAILY 02/19/22 02/19/22 02/18/22 History tablet,extended release Allergies Allergy/AdvReac Type Severity Reaction Status Date / Time Penicillins Allergy ALGY-Rash Verified 02/19/22 09:27 Current Medications Generic Name Dose Route Start Last Admin Trade Name Makq PRN Reason Stop Dose Admin Acetaminophen 500 mg 02/19/22 14:38 02/20/22 04:58 Acetaminophen 500 Mg Tablet PO 500 mg Q4H PRN Administration fever Albuterol/Ipratropium 3 ml 02/19/22 14:38 02/20/22 08:06 Ipratropium-Albuterol 3 Ml Neb INHALATION 3 ml Q6H PRN Administration SHORTNESS OF BREATH Budesonide 0.5 mg 02/19/22 20:00 02/20/22 08:06 Budesonide 0.5 Mg/2 Ml Neb INHALATION 0.5 mg BID.RESPIRATORY TAURUS Administration Sodium Chloride 1,000 mls @ 75 mls/hr 02/19/22 14:38 02/20/22 04:39 Sodium Chloride 0.9% IV 75 mls/hr .[id number] TAURUS Administration Aztreonam 1,000 mg/ Sodium 50 mls @ 100 mls/hr 02/19/22 15:00 02/20/22 04:53 Chloride IV Infused Q12H TAURUS Infusion Protocol Clindamycin HCl/Dextrose 600 mg in 50 mls @ 100 mls/hr 02/19/22 15:00 02/20/22 07:25 Cleocin IV Infused Q8H TAURUS Infusion Protocol Vancomycin HCl 1,000 mg/ 250 mls @ 250 mls/hr 02/19/22 16:00 02/19/22 17:39 Sodium Chloride IV Infused Q18H TAURUS Infusion Lidocaine HCl 5 ml/ Potassium 105 mls @ 25 mls/hr 02/20/22 06:47 02/20/22 06:57 Chloride IV 02/20/22 10:58 25 mls/hr ONCE ONE Administration Lanolin 1 applic 02/20/22 05:03 02/20/22 06:05 Lanolin Oint 7 Gm TOPICAL 1 applic PRN PRN Administration DRYNESS Levothyroxine Sodium 100 mcg 02/20/22 09:00 02/20/22 07:59 Levothyroxine 100 Mcg Tablet PO 100 mcg DAILY TAURUS Administration PFSH Acute PFSH: Medical History Hyperlipidemia Hypertension Surgical History No significant past surgical history Family History Denies family history of Lung disease Social History Smoking and tobacco status: former smoker Quit status (tobacco): has quit using tobacco Former quit date comment: Patient started smoking at age 20, smoked until 8 years ago Vitals/I&O/Wt Last Vital Signs Temp 99.5 F 02/20/22 08:00 Pulse 82 02/20/22 08:24 Resp 16 02/20/22 08:06 BP 87/54 02/20/22 08:00 Pulse Ox 95 02/20/22 08:06 02/19/22 02/20/22 02/20/22 22:59 06:59 14:59 Intake Total 2362 / 3512 1093.75 / 4605.75 50 / 50 Balance 2362 / 3512 1093.75 / 4605.75 50 / 50 Weight last 48 hrs Weight 123 lb 4 oz Weight 140 lb Physical Exam Narrative: General: Patient is awake alert and oriented, in no distress. Neck: No JVD Respiratory: Inspection: No visible deformity of the chest wall Palpation: Trachea is mildly deviated to the right, bilateral symmetric expansion Percussion: Bilateral tympanic percussion note both anterior and posteriorly Auscultation: Reduced breath sound bilaterally, no crackles wheezing or rhonchi Cardiovascular: Regular rate and rhythm, S1-S2 present, distant heart sound, no murmur, no peripheral edema. Abdomen: Soft, nontender, nondistended, positive bowel sound Musculoskeletal: No obvious joint deformity, no evidence of pulmonary hypertrophic osteoarthropathy Skin: No rash Neuro: Mental status is normal, no gross cranial nerve deficit, gross normal motor function Data : 02/20/22 04:39 02/20/22 04:39 Micro: Microbiology 02/19/22 10:24 Urine Culture - Preliminary Urine,Clean Catch Gram Negative Rods 02/19/22 10:48 Blood Culture - Preliminary Blood SPECIMEN COLLECTED 02/19/22 10:48 Blood Culture - Preliminary Blood SPECIMEN COLLECTED Other data: I have reviewed the patient's laboratory microbiologic and radiologic data. A&P Assessment and plan (1) Postobstructive pneumonia: The patient likely has developed postobstructive pneumonia and is currently on b road-spectrum antibiotic. The plan is for bronchoscopic evaluation today. Once we have the microbiologic data the antibiotic can be de-escalated. Status: Acute (2) Mass of left lung: The radiologic appearance of the left upper lobe lung mass is more of invasive infiltrative malignancy rather than pneumonia. The patient also likely has metastatic disease at least in the left hilar lymph node area. I have discussed the risks and benefit for bronchoscopy, endobronchial sound guided transbronchial aspiration of lymph nodes and we will proceed with the procedure today. I will follow-up with the patient as outpatient once she is discharged. Status: Acute Coding Level of Care Code Acute Template Cutter for [facility] Ben Diagnoses Postobstructive pneumonia J18.9 Mass of left lung R91.8
[2022-02-20] MEDS: vancomycin 1,000 MG in sodium chloride 0.9% 250 ML 250 MG IV (09:50)
--- NOTE | 2022-02-20 10:04 | ANES.PREANE2 ---
Pre-Anesthetic Assessment Height/Weight: Height 1.68 m Weight 55.905 kg Temp Pulse Resp BP Pulse Ox 99.5 F 82 16 87/54 95 02/20/22 08:00 02/20/22 08:24 02/20/22 08:06 02/20/22 08:00 02/20/22 08:06 Preop Diagnosis: none Operation Date: 02/20/22 12:30 Proposed Procedures p Ebus(Not Applicable) - Keiry Mann MD s Bronchoscopy(Not Applicable) - Keiry Mann MD Familial anesthetic complications: none Was Beta Opal taken within 24 hours: N/A Was Clonidine taken within 24 hours: N/A Social No alcohol and No tobacco former smoker Exam alert, oriented x 3, clear to auscultation bilaterally and regular rate & rhythm Airway Submandibular: within normal limits Cervical ROM: within normal limits Mallampati: Class II Comments: Comments: missing teeth Pulmonary Postobstructive pneumoni a PCN Mass of left lung HTN Respiratory alkalosis with metabolic acidosis and hypoxemia on NC O2 w/ non labored respirations sitting in chair CV/HEM Anemia and Hypertension Hypokalemia Hepatic None reported GI Gastroesophageal Reflux Disease (Well controlled ) Metabolic None reported Musc/skel None reported Neuropsych None reported Anesthetic Plan ASA status: 3 (66 year old female smoker with PCN and acute respiratory decompensation ) Anesthesia: Anesthesia Evaluation and General Other: We discussed risk and benefits of general anesthesia including PONV, sore throat (sometimes severe), corneal abrasion, positioning and peripheral nerve injuries, life threatening allergic reaction, post operative ICU admission requiring prolonged intubation, aspiration, stroke, heart attack, , and rare incidences of recall. Patient consents to proceed with general anesthesia. Risk of > 500 ml blood loss (7ml/kg in children): No Medications/Allergies Home Medications Medication Instructions Recorded Confirmed Last Taken Type amlodipine 2.5 mg tablet 2.5 mg PO DAILY 02/19/22 02/19/22 02/18/22 History atorvastatin 20 mg tablet 10 mg PO DAILY 02/19/22 02/19/22 02/18/22 History hydrochlorothiazide 25 mg tablet 25 mg PO DAILY 02/19/22 02/19/22 02/18/22 History levothyroxine 100 mcg tablet 100 mcg PO DAILY 02/19/22 02/19/22 02/18/22 History potassium chloride 20 mEq 10 meq PO DAILY 02/19/22 02/19/22 02/18/22 History tablet,extended release Allergies Allergy/AdvReac Type Severity Reaction Status Date / Time Penicillins Allergy ALGY-Rash Verified 02/19/22 09:27 Current Medications Generic Name Dose Route Start Last Admin Trade Name Freq PRN Reason Stop Dose Admin Acetaminophen 500 mg 02/19/22 14:38 02/20/22 04:58 Acetaminophen 500 Mg Tablet PO 500 mg Q4H PRN Administration fever Albuterol/Ipratropium 3 ml 02/19/22 14:38 02/20/22 08:06 Ipratropium-Albuterol 3 Ml Neb INHALATION 3 ml Q6H PRN Administration SHORTNESS OF BREATH Budesonide 0.5 mg 02/19/22 20:00 02/20/22 08:06 Budesonide 0.5 Mg/2 Ml Neb INHALATION 0.5 mg BID.RESPIRATORY TAURUS Administration Sodium Chloride 1,000 mls @ 75 mls/hr 02/19/22 14:38 02/20/22 04:39 Sodium Chloride 0.9% IV 75 mls/hr .[id number] TAURUS Administration Aztreonam 1,000 mg/ Sodium 50 mls @ 100 mls/hr 02/19/22 15:00 02/20/22 04:53 Chloride IV Infused Q12H TAURUS Infusion Protocol Clindamycin HCl/Dextrose 600 mg in 50 mls @ 100 mls/hr 02/19/22 15:00 02/20/22 07:25 Cleocin IV Infused Q8H TAURUS Infusion Protocol Vancomycin HCl 1,000 mg/ 250 mls @ 250 mls/hr 02/19/22 16:00 02/20/22 09:50 Sodium Chloride IV 250 mls/hr Q18H TAURUS Administration Lidocaine HCl 5 ml/ Potassium 105 mls @ 25 mls/hr 02/20/22 06:47 02/20/22 06:57 Chloride IV 02/20/22 10:58 25 mls/hr ONCE ONE Administration Lanolin 1 applic 02/20/22 05:03 02/20/22 06:05 Lanolin Oint 7 Gm TOPICAL 1 applic PRN PRN Administration DRYNESS Levothyroxine Sodium 100 mcg 02/20/22 09:00 02/20/22 07:59 Levothyroxine 100 Mcg Tablet PO 100 mcg DAILY TAURUS Administration [facility] Anesthesia Medical History Hyperlipidemia Hypertension Surgical History No significant past surgical history Family History Denies family history of Lung disease Social History Smoking and tobacco status: former smoker Quit status (tobacco): has quit using tobacco Former quit date comment: Patient started smoking at age 20, smoked until 8 years ago Data Anesthesia : 02/20/22 04:39 02/20/22 04:39 Short CBC 02/19/22 02/20/22 Range/Units 09:48 04:39 WBC 17.1 H 18.1 H (4.0-10.0) 10^3/uL Hgb 11.7 10.2 L (11.5-15.3) g/dL Hct 33.3 L 29.4 L (37.0-47.0) % MCV 81.0 81.4 (81-99) fl Plt Count 476 H 413 H (130-400) 10^3/cmm Neut % (Auto) 79.4 85.8 % Neut # (Auto) 13.60 H 15.54 H (1.8-7.7) 10^3/uL BMP 02/19/22 02/20/22 09:48 04:39 Sodium 131 L 136 Potassium 3.0 L 2.9 L Chloride 89 L 99 Carbon Dioxide 28 24 BUN 12 9 Creatinine 0.7 0.6 Glucose 114 118 H Calcium 8.7 7.8 L Liver Function 02/19/22 Range/Units 09:48 Total Bilirubin 0.6 (0.15-1.2) mg/dL AST 117 H (0-32) U/L ALT 158 H (0-33) U/L Alkaline Phosphatase 441 H (35-105) IU/L Albumin 3.3 L (3.5-5.2) g/dL Urine 02/19/22 Range/Units 10:24 Urine Color Yellow (Yellow) Urine Appearance Clear (CLEAR) Urine pH 8 H (5-7) Ur Specific [place] 1.005 (1.005-1.030) Urine Protein Neg (Negative) Urine Glucose (UA) Norm (Normal) Urine Ketones Negative (Negative) Urine Nitrate Positive H (Negative) Urine Bilirubin Neg (Negative) Ur Leukocyte Esterase Negative (Negative) Urine RBC None (0-2) /hpf Urine WBC 5-10 H (0-5) /hpf COVID Results 02/19/22 09:48 Coronavirus 229E (PCR) Not detected SARS-CoV-2 (PCR) Not detected Coags 02/20/22 04:39 C-Reactive Protein 164.9 H ABG 02/20/22 04:38 Specimen Type Arterial Sample Site Brachial, right ABG pH 7.54 H ABG pCO2 31.4 L ABG pO2 48.3 L ABG HCO3 26.6 H ABG Base Excess 4.5 H O2 Delivery Device Room air O2 Liters/Min 2.0 Microbiology 02/19/22 10:24 Urine Culture - Preliminary Urine,Clean Catch Gram Negative Rods 02/19/22 10:48 Blood Culture - Preliminary Blood SPECIMEN COLLECTED 02/19/22 10:48 Blood Culture - Preliminary Blood SPECIMEN COLLECTED Cardiac Studies: Echocardiogram 02/19/22
--- NOTE | 2022-02-20 10:38 | PC.CHAP ---
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 [] Patient/Family/Request visit [] Outpatient visit [] Follow-up visit [] Physician referral [] Code/Alert [x] Routine visit [] Staff referral [] Actively dying [] Patient sleeping [x] Family support [] [] Out of room [] Palliative care [] [] Receiving care in room [] Pre-surgical visit [] Trauma [] Long length of stay [x] ICU visit [] Other: Relational/Emotional Strength [] Patient feels connected with others/family/visitors/staff [] Distress [] Loneliness/isolation [] Abandonment Spirituality of Patient [] Person of Reema [] Attends Synagogue of their Reema [] Believes in Prayer [] Reads Bible or Christianity materials [] There are Spiritual issues to be addressed Zinc Plating Machine Operator Interventions [x] Prayer [] Active listening [] Non-anxious presence [] Spiritual/emotional support [] Crisis/trauma care [] Spiritual counseling [] Bereavement support [] Provided bereavement packet [] Provided Bible/devotional materials [] Provided toy/stuffed animal, coloring book to patient or family member [] Provided Communion [] Anointing/[place] [] Salvation [x] Completed spiritual assessment [] Other: Impact on Illness or Injury [] Angry [] Fearful [] Anxious [] Often cries [] Exhaustion [] Unable to work [] Unable to attend episcopal [] Unable to walk/stand [] Unable to read [] Unable to drive [] Unable to eat/drink [] Unable to sleep [] Unable to be with family [] Patient intubated [] Other: Summary patient feeling some improvement... family present... Time spent with patient 10 min
--- NOTE | 2022-02-20 11:38 | PC.NURSE ---
Pt to GI lab per staff.
[2022-02-20] MEDS: sodium chloride 0.9% 1,000 ML 30 ML IV (11:58)
--- NOTE | 2022-02-20 13:34 | PM.OP ---
Operative Report Date of procedure: February 20, 2022 Pre-op diagnosis: Preop Diagnosis left hilar lung mass Post-op diagnosis: Same Brief History: This is a 66-year-old lady with a past history of smoking presented to the hospital with pneumonia and sepsis. The CT scan is concerning for malignancy involving left upper lobe with possible metastasis into local regional lymph nodes. Procedure: Name of the procedure: Bronchoscopy with inspection of the airway, bronchoalveolar lavage, endobronchial biopsies, endobronchial ultrasound-guided transbronchial needle aspiration of lymph nodes and control of bleeding. Indication: Suspected lung cancer Anesthesia: General anesthesia. Local anesthesia: The vocal cords, trachea, ammon and the right and left mainstem bronchi were anesthetized with 1% lidocaine, 8 mL. Description of the procedure: The procedure was explained to the patient and the consent was obtained. The patient was brought to the OR. The patient underwent laryngeal mask airway placement for general anesthesia. Following induction of general anesthesia, the bronchoscope was advanced through the LMA. The vocal cords were normal. The vocal cords were anesthetized with 1% lidocaine, 3 mL. Under direct visualization the bronchoscope was introduced through the vocal cords. The upper and lower trachea were normal. The trachea was anesthetized with 1% lidocaine. The ammon was sharp. The ammon, the right and left mainstem bronchi were anesthetized with 1% lidocaine. In a systematic manner bilateral bronchial tree was then examined. The bronchoscope was advanced into the left mainstem bronchus. There was narrowing in the segmental bronchi in the left upper lobe but no definitive endobronchial lesion was identified. The lingula and lower lobe bronchi were examined to the third subsegmental level without any abnormalities. The bronchoscope was then introduced into the right mainstem bronchus. The right upper lobe, right middle lobe and right lower lobe bronchi were examined up to the third subsegmental level and no abnormalities were identified. Bronchoalveolar lavage was performed left upper lobe. A total of 90 cc of fluid was instilled, fluid return was 25 mL. Endobronchial biopsies were performed from the left upper lobe. 3 specimens were obtained. The endobronchial ultrasound was introduced through the LMA. Large left hilar lung mass was identified. There was lymphadenopathy involving the subcarinal and left paratracheal lymph nodes. Fine-needle aspiration was performed from station 7 and station 10 L. Samples: 1. Bronchoalveolar lavage specimen was sent for gram stain and culture, AFB stain and culture, fungal stain and culture and cytology. 2. The endobronchial biopsies are sent for histopathology. 3. The transbronchial biopsies are sent for histopathology. Complications: There was no immediate complications. There was mild bleeding.
--- NOTE | 2022-02-20 13:42 | P.PN_ITS ---
Subjective Subjective: Discussed bronchoscopy Did speak with Dr. Mann this morning Patient is stating that she is feeling lethargic and fatigued, severity of febrile episodes is decreasing Currently on 1 to 2 L nasal cannula Vitals/I&O/Wt Last Vital Signs Temp 97.5 F L 02/20/22 11:49 Pulse 76 02/20/22 11:49 Resp 16 02/20/22 11:49 BP 90/58 02/20/22 11:49 Pulse Ox 95 02/20/22 11:49 02/19/22 02/20/22 02/20/22 22:59 06:59 14:59 Intake Total 2362 / 3512 1093.75 / 4605.75 405 / 405 Balance 2362 / 3512 1093.75 / 4605.75 405 / 405 Weight last 48 hrs Weight 55.905 kg Weight 63.503 kg Physical Exam Narrative: Nonfocal neuro exam For treatment of cardiac Currently on 2 L nasal cannula No active wheezing crackles or crepitation Abdomen soft Awake and alert Nonfocal neuro exam Data : 02/20/22 04:39 02/20/22 04:39 Micro: Microbiology 02/19/22 10:48 Blood Culture - Preliminary Blood NEGATIVE TO DATE 02/19/22 10:48 Blood Culture - Preliminary Blood NEGATIVE TO DATE 02/19/22 10:24 Urine Culture - Preliminary Urine,Clean Catch Gram Negative Rods A&P Assessment and plan (1) Postobstructive pneumonia: Status: Acute (2) Community acquired pneumonia: Status: Acute (3) Sepsis: Status: Acute (4) Mass of left lung: Status: Acute (5) Hyperlipidemia: Status: Acute (6) Hypertension: Status: Acute Plan Sepsis related to postobstructive pneumonia Intensity of fever subsiding Will de-escalate antibiotics by tomorrow Currently on 1 to 2 L nasal cannula Status post bronchoscopy We will follow-up with bronchoalveolar lavage Biopsy has been taken Suspicion for malignancy She is full code Currently hypotensive Hold antihypertensive regimen Continue budesonide and antibiotics Gentle fluid hydration Start regular diet Hypothyroidism: Continue levothyroxine If she stays stable she can be transferred out of ICU later today Attestations Medical Necessity Statement*: Continue ICU management Time Spent in Patient Care: 30 Coding Level of Care Code Acute [employer] 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
[2022-02-20 14:01] LABS: Cyto Order Verification Order Verified
--- NOTE | 2022-02-20 14:05 | ANE.PACU2 ---
Inpatient post-anesthesia follow up: Airway intact: Yes Vital signs: Temperature 97.5 F Pulse Rate 76 Respiratory Rate 16 Blood Pressure 90/58 Pulse Oximetry 95 Oxygen Delivery Me thod Nasal Cannula Oxygen Flow Rate 1 Fraction of Inspir ed Oxygen Hydration adequate: Yes Nausea and vomiting: No Pain level: 1 Mental status: Baseline
--- NOTE | 2022-02-20 14:27 | PC.NURSE ---
1340 pt back from gi lab. Coughing some bloody sputum up. Denies any other needs. coughing has since resolved, ice chips provided and tolerated well.
[2022-02-20] MEDS: benzonatate 100 mg Capsule 200 MG PO ×2 (15:15→20:51)
[2022-02-20] MEDS: temazepam 15 mg Capsule PO (21:28)
[2022-02-21] VITALS (20 sets, daily range): BP systolic 78–135; BP diastolic 54–76; PULSE 0–103; RESP 16–25; TEMP 36.2–36.9; O2SAT 87–98
[2022-02-21] MEDS: aztreonam 1,000 MG in sodium chloride 0.9% (plus) 50 ML 100 MG IV ×2 (03:21→14:59)
[2022-02-21] MEDS: benzonatate 100 mg Capsule 200 MG PO (03:24)
[2022-02-21 03:59] LABS: Basophils % 0.2 %; Eosinophils % 0.1 %; Hematocrit 30.5 % (37.0-47.0); Hemoglobin 10.1 g/dL (11.5-15.3); Lymphocytes # 1.1 10^3/uL (0.8-4.8); Lymphocytes % 5.4 %; Mean Corpuscular HGB Conc 33.1 g/dL (30.0-36.0); Mean Corpuscular Hemoglobin 28.1 pg (28.0-34.0); Monocytes # 0.3 10^3/uL (0.2-0.9); Monocytes % 1.3 %; Neutrophils # 18.12 10^3/uL (1.8-7.7); Nucleated Red Blood Cells % 0 %; Platelet Count 398 10^3/cmm (130-400); Red Blood Count 3.59 10^6/uL (4.1-5.3); Red Cell Distribution Width 12.9 % (12.1-15.1); White Blood Count 19.7 10^3/uL (4.0-10.0)
[2022-02-21] MEDS: vancomycin 1,000 MG in sodium chloride 0.9% 250 ML 250 MG IV ×2 (04:00→21:01)
[2022-02-21 04:23] LABS: Anion Gap 13.7 (5-19); Blood Urea Nitrogen 12 mg/dL (8-23); Carbon Dioxide 23 mmol/L (22-29); Chloride 103 mmol/L (98-107); Glomerular Filtration Rate 160.7 mL/min (90-130); Glucose 193 mg/dL (65-115); Osmolality Calculated 287 mOsm/kg (285-295); Potassium 3.7 mmol/L (3.5-5.1); Sodium 136 mmol/L (136-145)
--- NOTE | 2022-02-21 07:34 | PC.NURSE ---
resting at this time monitor sr and vitals stable
[2022-02-21] MEDS: levothyroxine 100 mcg Tablet PO (08:13)
[2022-02-21] MEDS: ipratropium-albuterol 3 mL Neb INHALATION (08:16)
[2022-02-21] MEDS: budesonide 0.5 mg/2 mL Neb INHALATION ×2 (08:16→20:45)
[2022-02-21] MEDS: clindamycin 150 mg Capsule 300 MG PO ×3 (09:31→21:19)
[2022-02-21] MEDS: lactated ringers 1,000 ML 999 ML IV (09:31)
--- NOTE | 2022-02-21 11:25 | PC.NURSE ---
blood pressure remains borderline at this time fluid bolus infusing family at beside encouraged to take po fluids... monitor bp
[2022-02-21] MEDS: sodium chloride 0.9% 1,000 ML 75 ML IV ×2 (12:32→21:01)
--- NOTE | 2022-02-21 14:00 | PM.PN ---
Subjective Subjective: Patient's blood pressure is low, I have given her 1 L bolus which improved her pressure, poor p.o. intake Family at the bedside I did tell them that we are waiting for biopsy results until then she will stay in the hospital Concern is related to cancer related lung mass Febrile episodes noted Nocturnal fever Vitals/I&O/Wt Last Vital Signs Temp 97.1 F L 02/21/22 11:03 Pulse 103 H 02/21/22 11:03 Resp 24 H 02/21/22 11:03 BP 78/66 02/21/22 11:03 Pulse Ox 94 02/21/22 09:00 02/20/22 02/21/22 02/21/22 22:59 06:59 14:59 Intake Total 895 / 1813.75 300 / 2113.75 2550 / 2550 Balance 895 / 1813.75 300 / 2113.75 2550 / 2550 Weight last 48 hrs Weight 55.905 kg Physical Exam Narrative: Patient is awake and alert No active neurological deficits Breathing well on 2 L nasal cannula Tachycardia Sinus tachycardia with low blood pressure improving with IV fluid hydration Abdomen is soft No labored breathing signs Awake and alert EOMI, PERRLA Data : 02/21/22 03:10 02/21/22 03:10 Micro: Microbiology 02/20/22 12:50 Gram Stain - Final Lung Left Upper Lobe Bronchial Washings Culture - Preliminary 02/19/22 10:24 Urine Culture - Final Urine,Clean Catch Escherichia coli 02/19/22 14:07 MRSA Culture - Final Nose 02/19/22 10:48 Blood Culture - Preliminary Blood NEGATIVE TO DATE 02/19/22 10:48 Blood Culture - Preliminary Blood NEGATIVE TO DATE A&P Assessment and plan (1) Postobstructive pneumonia: Status: Acute (2) Community acquired pneumonia: Status: Acute (3) Sepsis: Status: Acute (4) Mass of left lung: Status: Acute (5) Hyperlipidemia: Status: Acute (6) Hypertension: Status: Acute Plan Postobstructive pneumonia with sepsis Patient still spiking fever I will keep her on broad-spectrum antibiotics MRSA PCR negative I would wait for bronchoalveolar lavage final results before de-escalating antibiotics Her febrile episodes could be related to underlying cancer because she is showing signs of B-cell nocturnal fever, weight loss, She can be transferred out of ICU if blood pressure stays stable I have updated ICU nurse to BJ Not to transfer if blood pressure stays low Acute hypoxia Related to pneumonia and underlying lung mass Currently doing well on 2 to 3 L nasal cannula Holding antihypertensive regimen Continue IV fluid hydration Continue levothyroxine I would like to give her a dose of stress dose steroids along IV fluids today She is full code DVT prophylaxis initiated after bronchoscopy Echo seems unremarkable Attestations Medical Necessity Statement*: Can be transferred out of the ICU if hemodynamically stable Time Spent in Patient Care: 30 Coding Level of Care Code Acute Physician Pediatrician for Noryg Fwd Diagnoses Postobstructive pneumonia J18.9 Community acquired pneumonia J18.9 Sepsis A41.9 Mass of left lung R91.8 Hyperlipidemia E78.5 Hypertension I10
[2022-02-21] MEDS: hydrocortisone 100 mg/2 mL SDV IVP (14:58)
[2022-02-21] MEDS: alum-mag-hydroxide-sime 30 mL UDC 15 ML PO ×2 (16:23→21:00)
--- NOTE | 2022-02-21 16:35 | PC.NURSE ---
report called to floor transfer to room [id number]
[2022-02-21] MEDS: acetaminophen 500 mg Tablet PO (19:08)
[2022-02-21] MEDS: temazepam 15 mg Capsule PO (21:01)
[2022-02-22] VITALS (8 sets, daily range): BP systolic 125–148; BP diastolic 70–81; PULSE 60–87; RESP 14–20; TEMP 36.3–36.9; O2SAT 91–99
[2022-02-22] MEDS: hydrocortisone 100 mg/2 mL SDV IVP (02:56)
[2022-02-22] MEDS: aztreonam 1,000 MG in sodium chloride 0.9% (plus) 50 ML 100 MG IV ×2 (02:57→14:50)
[2022-02-22] MEDS: clindamycin 150 mg Capsule 300 MG PO ×4 (02:59→21:39)
[2022-02-22 04:39] LABS: Basophils % 0.1 %; Hematocrit 31.2 % (37.0-47.0); Hemoglobin 10.3 g/dL (11.5-15.3); Lymphocytes # 1.5 10^3/uL (0.8-4.8); Lymphocytes % 6.5 %; Mean Corpuscular Hemoglobin 28.6 pg (28.0-34.0); Mean Corpuscular Volume 86.7 fl (81-99); Monocytes # 0.7 10^3/uL (0.2-0.9); Monocytes % 2.9 %; Neutrophils # 21.07 10^3/uL (1.8-7.7); Neutrophils % 89.2 %; Nucleated Red Blood Cells % 0 %; Platelet Count 439 10^3/cmm (130-400); Red Cell Distribution Width 13.2 % (12.1-15.1); White Blood Count 23.6 10^3/uL (4.0-10.0)
[2022-02-22 05:09] LABS: Anion Gap 13.5 (5-19); Blood Urea Nitrogen 12 mg/dL (8-23); Calcium 8.7 mg/dL (8.5-10.5); Carbon Dioxide 25 mmol/L (22-29); Chloride 106 mmol/L (98-107); Glucose 141 mg/dL (65-115); Osmolality Calculated 294 mOsm/kg (285-295); Potassium 3.5 mmol/L (3.5-5.1); Sodium 141 mmol/L (136-145)
[2022-02-22 05:12] LABS: Procalcitonin 0.18 ng/mL (0-0.5)
--- NOTE | 2022-02-22 05:38 | P.PN_ITS ---
Subjective Subjective: She has remained afebrile Saturating well on 3 L nasal cannula Blood pressure is improved as well Leukocytosis worsening Vitals/I&O/Wt Last Vital Signs Temp 97.6 F 02/22/22 04:11 Pulse 70 02/22/22 04:11 Resp 16 02/22/22 04:11 BP 147/80 02/22/22 04:11 Pulse Ox 96 02/22/22 04:11 02/21/22 02/21/22 02/22/22 14:59 22:59 06:59 Intake Total 2550 / 2550 2358.75 / 4908.75 170 / 5078.75 Balance 2550 / 2550 2358.75 / 4908.75 170 / 5078.75 Physical Exam Narrative: Nonfocal neuro exam Hydration status improving Abdomen soft Nonlabored breathing No signs of wheezing or crackles S1, S2 Pleasant and cooperative Data : 02/22/22 04:21 02/22/22 04:21 Micro: Microbiology 02/20/22 12:50 Gram Stain - Final Lung Left Upper Lobe Bronchial Washings Culture - Preliminary 02/19/22 10:24 Urine Culture - Final Urine,Clean Catch Escherichia coli A&P Assessment and plan (1) Postobstructive pneumonia: Status: Acute (2) Community acquired pneumonia: Status: Acute (3) Sepsis: Status: Acute (4) Mass of left lung: Status: Acute (5) Hyperlipidemia: Status: Acute (6) Hypertension: Status: Acute (7) Hypoxia: Status: Acute Plan Acute hypoxia related to postobstructive pneumonia Currently on 3 to nasal cannula Oxygen saturation is above 90% on 3 L No signs of PE Status post bronchoscopy Awaiting pathology results Hypotension improved with IV fluid hydration Fever has subsided Worsening leukocytosis noted I will continue broad-spectrum antibiotics for now Cultures remain negative so far Full code Regular diet DVT prophylaxis on board No need of continuation of steroids, worsening leukocytosis likely related to steroid usage Echo is unremarkable Attestations Medical Necessity Statement*: Discharge in next 24 hours after bronchiolar lavage results Time Spent in Patient Care: 30 Coding Level of Care Code Acute Health Care Legal Assistant for Chg Fwd Diagnoses Postobstructive pneumonia J18.9 Community acquired pneumonia J18.9 Sepsis A41.9 Mass of left lung R91.8 Hyperlipidemia E78.5 Hypertension I10 Hypoxia R09.02
[2022-02-22] MEDS: budesonide 0.5 mg/2 mL Neb INHALATION ×2 (08:50→19:59)
[2022-02-22] MEDS: levothyroxine 100 mcg Tablet PO (09:31)
--- NOTE | 2022-02-22 13:41 | ANE.PACU2 ---
Inpatient post-anesthesia follow up: Airway intact: Yes Vital signs: Temperature 98.1 F Pulse Rate 71 Respiratory Rate 16 Blood Pressure 125/70 Pulse Oximetry 93 Oxygen Delivery Me thod Room Air Oxygen Flow Rate 2 Fraction of Inspir ed Oxygen Hydration adequate: Yes Nausea and vomiting: No Pain level: 1 Mental status: Baseline
[2022-02-22 15:42] LABS: Vancomycin Trough 4.3 ug/mL (10-15)
[2022-02-22] MEDS: vancomycin 1,250 MG/250 ML PIGGYBACK 200 MG IV (16:59)
[2022-02-22] MEDS: benzonatate 100 mg Capsule 200 MG PO (17:05)
[2022-02-22] MEDS: temazepam 15 mg Capsule PO (21:39)
[2022-02-23] MEDS: acetaminophen 500 mg Tablet PO ×2 (01:52→09:59)
[2022-02-23] MEDS: clindamycin 150 mg Capsule 300 MG PO ×2 (01:52→10:00)
[2022-02-23] MEDS: aztreonam 1,000 MG in sodium chloride 0.9% (plus) 50 ML 100 MG IV (01:54)
[2022-02-23] MEDS: benzonatate 100 mg Capsule 200 MG PO (01:58)
[2022-02-23] MEDS: vancomycin 1,250 MG/250 ML PIGGYBACK 200 MG IV (03:03)
[2022-02-23 03:41] LABS: Basophils % 0.2 %; Eosinophils # 0.2 10^3/uL (0.0-0.8); Eosinophils % 1.3 %; Hemoglobin 11.4 g/dL (11.5-15.3); Lymphocytes # 1.1 10^3/uL (0.8-4.8); Lymphocytes % 6.9 %; Mean Corpuscular HGB Conc 34.5 g/dL (30.0-36.0); Mean Corpuscular Hemoglobin 28.2 pg (28.0-34.0); Mean Corpuscular Volume 81.7 fl (81-99); Mean Platelet Volume 9.7 fL (7.4-10.4); Monocytes # 0.2 10^3/uL (0.2-0.9); Neutrophils # 14.38 10^3/uL (1.8-7.7); Neutrophils % 89.1 %; Nucleated Red Blood Cells % 0 %; Platelet Count 510 10^3/cmm (130-400); Red Blood Count 4.04 10^6/uL (4.1-5.3); Red Cell Distribution Width 13.1 % (12.1-15.1); White Blood Count 16.2 10^3/uL (4.0-10.0)
[2022-02-23 03:44] VITALS: BP 113/73; PULSE 110; RESP 20; TEMP 36.9; O2SAT 91
[2022-02-23 04:06] LABS: Anion Gap 17.1 (5-19); Blood Urea Nitrogen 15 mg/dL (8-23); Calcium 8.9 mg/dL (8.5-10.5); Carbon Dioxide 24 mmol/L (22-29); Chloride 102 mmol/L (98-107); Glomerular Filtration Rate 124.2 mL/min (90-130); Glucose 94 mg/dL (65-115); Osmolality Calculated 291 mOsm/kg (285-295); Potassium 3.1 mmol/L (3.5-5.1); Sodium 140 mmol/L (136-145)
--- NOTE | 2022-02-23 05:35 | PM.DCS ---
Discharge Providers Date of Admission: 02/19/22 12:28 Date of Discharge: February 23, 2022 Attending Provider at Admission: Farhad Vidal MD Attending Provider at Discharge: Farhad Vidal MD Primary Care Provider: HERNANDEZ Ferreira Diagnoses at Discharge Discharge Diagnosis (1) Postobstructive pneumonia: Status: Acute (2) Community acquired pneumonia: Status: Acute (3) Sepsis: Status: Acute (4) Mass of left lung: Status: Acute (5) Hyperlipidemia: Status: Acute (6) Hypertension: Status: Acute (7) Hypoxia: Status: Acute Reason for Visit Reason for Visit: fever, cough , chills Hospital Course Hospital Course Very pleasant cooperative 66-year female who was admitted for management of sepsis related to postobstructive pneumonia, Dr. Mann was consulted who did bronchoscopy next day, so far cultures have been negative, she never spiked any fever, leukocytosis improved with use of broad-spectrum antibiotics she was kept on linezolid, aztreonam and clindamycin, her p.o. intake was poor that dropped his blood pressure however with IV fluid hydration and better p.o. intake she remained hemodynamically stable. Biopsy results are pending. Qualify for oxygen at the time of discharge. Oxygen requirement is new. Patient would like to go home and follow-up with oncology outpatient after her pathology results are back. I will also have her follow-up with Dr. Mann outpatient. Echo unremarkable. Cultures remain negative, urine culture showed E. coli. She never had any symptoms of UTI. Nares MRSA negative. Physical Exam Narrative: female Saturating well on 2 L nasal cannula Appears euvolemic Very pleasant cooperative Nonfocal neuro exam Abdomen soft No audible stridor or wheezing Discharge Data Studies Completed and Pending Completed Studies During Hospitalization Category [place] [id number] Stat Cat Scan 02/19/22 10:41 Completed XR chest 2V* [id number] Stat Exams 02/19/22 09:52 Completed CV. echo complete* [id number] Routine Ultrasound 02/19/22 14:38 Completed Pending at discharge Category Date Time Status Blood Culture Stat Lab 02/19/22 10:48 Results Fungal Culture not HR/SK/BL Routine Lab 02/20/22 12:50 Received Mycobacteria, Culture w/Fluor Routine Lab 02/20/22 12:50 Received Mycobacteria, Culture w/Fluor Routine Lab 02/20/22 12:50 Received Cytology [PTH] Routine Pth 02/20/22 12:50 Received Pathology: Surgical [PTH] Routine Pth 02/20/22 13:25 Received Radiology Impressions Chest X-Ray 02/19/22 09:52 IMPRESSION: 1. Large consolidated density with associated pleural thickening seen in the left upper lobe and left suprahilar region. This may represent densely consolidated pneumonia or a mass. 2. Fibrous scarring seen in the right upper lobe but the right lung is otherwise clear. Chest/Abdomen/Pelvis CT 02/19/22 10:41 IMPRESSION: 1. Partial LEFT upper lobe collapse with dense consolidation and a few air bronchograms proximally. LEFT hilar mass or lymphadenopathy measuring 2.3 x 2.5 CM suspicious for neoplasm. Recommend further evaluation with bronchoscopy 4 2. No anterior mediastinal or RIGHT hilar lymphadenopathy. 3. No evidence of metastatic disease in the abdomen or pelvis on this noncontrast examination. 4. Peripherally calcified low-attenuation RIGHT renal lesion likely renal cyst measuring 1.8 cm. This can be further evaluated ultrasound. 5. No other acute findings. Laboratory Results WBC 16.2 10^3/uL (4.0-10.0) H 02/23/22 03:02 RBC 4.04 10^6/uL (4.1-5.3) L 02/23/22 03:02 Hgb 11.4 g/dL (11.5-15.3) L 02/23/22 03:02 Hct 33.0 % (37.0-47.0) L 02/23/22 03:02 MCV 81.7 fl (81-99) D 02/23/22 03:02 MCH 28.2 pg (28.0-34.0) 02/23/22 03:02 MCHC 34.5 g/dL (30.0-36.0) 02/23/22 03:02 RDW 13.1 % (12.1-15.1) 02/23/22 03:02 Plt Count 510 10^3/cmm (130-400) H 02/23/22 03:02 MPV 9.7 fL (7.4-10.4) 02/23/22 03:02 Neut % (Auto) 89.1 % 02/23/22 03:02 Lymph % (Auto) 6.9 % 02/23/22 03:02 [place] % (Auto) 1.0 % 02/23/22 03:02 Eos % (Auto) 1.3 % 02/23/22 03:02 Baso % (Auto) 0.2 % 02/23/22 03:02 Neut # (Auto) 14.38 10^3/uL (1.8-7.7) H 02/23/22 03:02 Lymph # (Auto) 1.1 10^3/uL (0.8-4.8) 02/23/22 03:02 [place] # (Auto) 0.2 10^3/uL (0.2-0.9) 02/23/22 03:02 Eos # (Auto) 0.2 10^3/uL (0.0-0.8) 02/23/22 03:02 Baso # (Auto) 0.0 10^3/uL (0.0-0.1) 02/23/22 03:02 Nucleated RBC % (auto) 0 % 02/23/22 03:02 Nucleated RBCs # 0.0 /100WBC 02/23/22 03:02 Specimen Type Arterial 02/20/22 04:38 Sample Site Brachial, right 02/20/22 04:38 ABG pH 7.54 (7.35-7.45) H 02/20/22 04:38 ABG pCO2 31.4 mmHg (35-45) L 02/20/22 04:38 ABG pO2 48.3 mmHg (80.0-100.0) L 02/20/22 04:38 ABG HCO3 26.6 mmol/L (22-26) H 02/20/22 04:38 ABG Base Excess 4.5 mmol/L (-2.0-2.0) H 02/20/22 04:38 Brock Test N/a 02/20/22 04:38 Hematocrit 46.6 % (37-47) 02/20/22 04:38 O2 Delivery Device Room air 02/20/22 04:38 O2 Liters/Min 2.0 % 02/20/22 04:38 Assistant Sales Center Manager ID [place] 02/20/22 04:38 Sodium 140 mmol/L (136-145) 02/23/22 03:02 Potassium 3.1 mmol/L (3.5-5.1) L 02/23/22 03:02 Chloride 102 mmol/L (98-107) 02/23/22 03:02 Carbon Dioxide 24 mmol/L (22-29) 02/23/22 03:02 Anion Gap 17.1 (5-19) 02/23/22 03:02 BUN 15 mg/dL (8-23) 02/23/22 03:02 Creatinine 0.5 mg/dL (0.5-0.9) 02/23/22 03:02 GFR Calculation 124.2 mL/min (90-130) 02/23/22 03:02 Glucose 94 mg/dL (65-115) 02/23/22 03:02 Calculated Osmolality 291 mOsm/kg (285-295) 02/23/22 03:02 Lactic Acid 1.1 mmol/L (0.5-2.2) 02/19/22 16:34 Calcium 8.9 mg/dL (8.5-10.5) 02/23/22 03:02 Phosphorus 1.8 mg/dL (2.5-4.5) L 02/20/22 04:39 Magnesium 1.4 mg/dL (1.7-2.3) L 02/20/22 04:39 Total Bilirubin 0.6 mg/dL (0.15-1.2) 02/19/22 09:48 AST 117 U/L (0-32) H 02/19/22 09:48 ALT 158 U/L (0-33) H 02/19/22 09:48 Alkaline Phosphatase 441 IU/L (35-105) H 02/19/22 09:48 C-Reactive Protein 164.9 mg/L (0.0-4.9) H 02/20/22 04:39 Total Protein 7.2 g/dL (6.6-8.7) 02/19/22 09:48 Albumin 3.3 g/dL (3.5-5.2) L 02/19/22 09:48 Globulin 3.9 g/dL (1.3-4.6) 02/19/22 09:48 Procalcitonin 0.18 ng/mL (0-0.5) 02/22/22 04:21 TSH 1.76 uIU/mL (0.27-4.20) 02/19/22 09:48 Urine Color Yellow (Yellow) 02/19/22 10:24 Urine Appearance Clear (CLEAR) 02/19/22 10:24 Urine pH 8 (5-7) H 02/19/22 10:24 Ur Specific [place] 1.005 (1.005-1.030) 02/19/22 10:24 Urine Protein Neg (Negative) 02/19/22 10:24 Urine Glucose (UA) Norm (Normal) 02/19/22 10:24 Urine Ketones Negative (Negative) 02/19/22 10:24 Urine Blood Neg (Negative) 02/19/22 10:24 Urine Nitrate Positive (Negative) H 02/19/22 10:24 Urine Bilirubin Neg (Negative) 02/19/22 10:24 Prot Sulfosalicylic Acd Negative (Negative) 02/19/22 10:24 Urine Urobilinogen Norm mg/dL (Negative) 02/19/22 10:24 Ur Leukocyte Esterase Negative (Negative) 02/19/22 10:24 Urine RBC None /hpf (0-2) 02/19/22 10:24 Urine WBC 5-10 /hpf (0-5) H 02/19/22 10:24 Ur Squamous Epith Cells 0-4 /hpf (0-5) H 02/19/22 10:24 Amorphous Sediment Not Reportable 02/19/22 10:24 Urine Bacteria 3+ /hpf (NONE) H 02/19/22 10:24 Vancomycin Trough 4.3 ug/mL (10-15) L 02/22/22 14:52 Coronavirus 229E (PCR) Not detected (NOT DETECT) 02/19/22 09:48 SARS-CoV-2 (PCR) Not detected (NOT DETECT) 02/19/22 09:48 Vitals Last Vital Signs Temp 98.5 F 02/23/22 03:44 Pulse 110 H 02/23/22 03:44 Resp 20 H 02/23/22 03:44 BP 113/73 02/23/22 03:44 Pulse Ox 91 02/23/22 03:44 Discharge Plan Discharge Patient Disposition: Home Condition: Stable Prescriptions: New albuterol sulfate 90 mcg/actuation HFA aerosol inhaler 1 inh inhalation Q6H PRN (Reason: shortness of breath or wheezing) Qty: 8.5 3RF levofloxacin 750 mg tablet 750 mg PO DAILY 10 Days Qty: 10 0RF mirtazapine 7.5 mg tablet 7.5 mg PO BEDTIME Qty: 30 3RF Continued atorvastatin 20 mg Tablet 10 mg PO DAILY 0RF amlodipine 2.5 mg Tablet 2.5 mg PO DAILY 0RF levothyroxine 100 mcg Tablet 100 mcg PO DAILY 0RF Discontinued hydrochlorothiazide 25 mg Tablet 25 mg PO DAILY 0RF potassium chloride 20 mEq Tablet Extended Release 10 meq PO DAILY 0RF Referrals: Natalia Felix FNP [Primary Care Provider] - Keiry Mann MD [Physician] - 2 weeks Discharge Diet: Regular Discharge Activity: Increase activity as tolerated Patient Instructions: Opioid Safety Discharge Attestations Time Spent in Discharge Care*: less than 30 min Quality Metrics Clinical Quality Measures [ No reported AMI, CVA or VTE this stay] Coding Level of Care Code Acute g [facility] note Diagnoses Postobstructive pneumonia J18.9 Community acquired pneumonia J18.9 Sepsis A41.9 Mass of left lung R91.8 Hyperlipidemia E78.5 Hypertension I10 Hypoxia R09.02
[2022-02-23 07:41] VITALS: BP 92/58; PULSE 91; RESP 16; TEMP 36.7; O2SAT 91
[2022-02-23 08:00] VITALS: PULSE 96; RESP 17; O2SAT 96
[2022-02-23] MEDS: budesonide 0.5 mg/2 mL Neb INHALATION (08:38)
[2022-02-23] MEDS: ipratropium-albuterol 3 mL Neb INHALATION (08:38)
[2022-02-23 08:41] VITALS: PULSE 93
[2022-02-23 08:42] VITALS: O2SAT 92; O2SAT 96
[2022-02-23] MEDS: lactated ringers 500 ML 999 ML IV (09:59)
[2022-02-23] MEDS: levothyroxine 100 mcg Tablet PO (10:00)
[2022-03-12 12:11] LABS: PD-L1 (Clone 22C3) by IHC BBPL See Report
== END 2022-02-23 11:45 | disposition home or self-care (01) | DRG 871 ==
LOC: ER 12:26 → ICU 14:27 → MEDSURG 02-21 17:16
PROVIDERS: Internal Medicine Critical Care Medicine; Admitting Provider Internal Medicine; Emergency Provider Emergency Medicine; PCP Nurse Practitioner; Visit Provider Internal Medicine
PROC: BB4BZZZ Ultrasonography of Pleura (ICD-10-PCS; principal; 2022-02-20 12:30)
PROC: 0BJ08ZZ Inspection of Tracheobronchial Tree, Via Natural or Artificial Opening Endoscopic (ICD-10-PCS; CPT 31622; 2022-02-20 12:30)
DX: A41.9 Sepsis, unspecified organism (principal); J18.9 Pneumonia, unspecified organism; C34.02 Malignant neoplasm of left main bronchus; N39.0 Urinary tract infection, site not specified; Z87.891 Personal history of nicotine dependence; E78.5 Hyperlipidemia, unspecified; I10 Essential (primary) hypertension; E83.42 Hypomagnesemia; E87.6 Hypokalemia; I95.9 Hypotension, unspecified; B96.20 Unspecified Escherichia coli [E. coli] as the cause of diseases classified elsewhere
CPT/HCPCS: 31624; 31625; 31652; 36415; 71046; 71250; 74176; 80048; 80053; 80202; 81001; 82803; 83605; 83735; 84100; 84145; 84443; 85025; 86140; 87015; 87040; 87070; 87077; 87086; 87102; 87116; 87186; 87205; 87206; 87635; 87641; 87801; 88108; 88305; 88342; 93306; 94640; 94664; 96365; 96367; 99285; J0696; J1100; J1720; J2405; J2704; J3010; J3370; J3475; J3480; J3490; J7030; J7050; J7626

== ENCOUNTER 2022-02-27 07:45 | Oncology outpatient (recurring) (ONCR) | payer OTHER, SELFPAY | END 2022-02-27 23:59 | disposition home or self-care (01) | PROVIDERS: PCP Nurse Practitioner; Visit Provider Internal Medicine Medical Oncology | DX: C34.12 Malignant neoplasm of upper lobe, left bronchus or lung (principal); Z87.891 Personal history of nicotine dependence | CPT/HCPCS: 77300; 77301; 77338; 99205 ==

== ENCOUNTER → 2022-03-10 08:48 | Outpatient (BNVA) | payer OTHER, SELFPAY | PROVIDERS: PCP Nurse Practitioner; Visit Provider Surgery | DX: C34.12 Malignant neoplasm of upper lobe, left bronchus or lung (principal) | CPT/HCPCS: 99203 ==

== ENCOUNTER 2022-03-18 06:18 | Day surgery (SDC) | payer OTHER, SELFPAY ==
[2022-03-17 12:28] VITALS: BMI 20.9
[2022-03-18] VITALS (8 sets, daily range): BP systolic 112–134; BP diastolic 64–82; PULSE 79–90; RESP 15–18; TEMP 36.8–37.2; O2SAT 91–95
--- NOTE | 2022-03-18 | SCC_ITS ---
Procedure done: Mediport insertion 2.3 seconds of fluoroscopic guidance, for a cumulative dose of 0.15 mGy, was provided to Dr. Goldsmith by the radiology department. C-arm images of the chest were saved for the patient's permanent record. [facility]
--- NOTE | 2022-03-18 06:26 | SC_ITS ---
WS: [id number] INTRAOPERATIVE TECHNIQUE: 2 Spot fluoroscopic images for intraoperative purposes. FLUOROSCOPY TIME: 2.3 seconds CLINICAL INFORMATION: Mediport placement COMPARISON: None. FINDINGS: RIGHT Port-A-Cath with tip in the distal SVC in good position. No visualized pneumothorax. SC/C-arm [place] for CVA [id number] IMPRESSION: Images obtained for intraoperative purposes.
--- NOTE | 2022-03-18 06:48 | ANES.PREANE2 ---
Pre-Anesthetic Assessment Height/Weight: Height 1.68 m Weight 58.967 kg Temp Pulse Resp BP Pulse Ox 98.2 F 79 18 130/82 95 03/18/22 06:39 03/18/22 06:39 03/18/22 06:39 03/18/22 06:39 03/18/22 06:39 Preop Diagnosis: Left lung carcinoma Operation Date: 03/18/22 08:00 Proposed Procedures p Portacath Placement 64419,C34.12(Not Applicable) - Melo Goldsmiht DO Familial anesthetic complications: None Was Beta Opal taken within 24 hours: N/A Was Clonidine taken within 24 hours: N/A Last intake: > 8hrs Social No alcohol and No tobacco Exam alert, oriented x 3, clear to auscultation bilaterally and regular rate & rhythm Airway Mallampati: Class II Dentition: other (missing) Pulmonary Chronic Obstructive Pulmonary Disease postobstructive pneumonia w/ MONTSE mass (adenocarcinoma) on 2 L NC morning and night CV/HEM Hypertension None reported Hepatic None reported GI None reported Metabolic Hyperlipidemia and Thyroid Disease [facility] [place] None reported Neuropsych None reported Anesthetic Plan ASA status: 4 Anesthesia: MAC Risk of > 500 ml blood loss (7ml/kg in children): No Medications/Allergies Home Medications Medication Instructions Recorded Confirmed Last Taken Type atorvastatin 20 mg tablet 10 mg PO DAILY 02/19/22 03/18/22 03/17/22 History levothyroxine 100 mcg tablet 100 mcg PO DAILY 02/19/22 03/18/22 03/18/22 History albuterol sulfate 90 mcg/actuation 1 inh INHALATION Q6H PRN #8.5 g 02/23/22 03/18/22 03/18/22 Rx aerosol inhaler amlodipine 2.5 mg tablet 2.5 mg PO DAILY PRN #30 tab 02/23/22 03/17/22 02/18/22 Rx mirtazapine 7.5 mg tablet 7.5 mg PO BEDTIME #30 tab 02/23/22 03/18/22 03/17/22 Rx Allergies Allergy/AdvReac Type Severity Reaction Status Date / Time Penicillins Allergy ALGY-Rash Verified 03/10/22 08:53 PFSH Anesthesia Medical History Hyperlipidemia Hypertension Hypothyroidism Surgical History History of hysterectomy with bilateral oophorectomy [place], [place] History of tonsillectomy Hx of colonoscopy S/P bronchoscopy (02/20/22) Bronchoscopy with EBUS Family History Mother Cancer ovarian Father Dementia Other CAD (coronary artery disease) Hyperlipidemia Hypertension Denies family history of Clotting disorder Psychiatric illness Chronic kidney disease (CKD) Suicide Anesthesia complication Bleeding disorder Lung disease Stroke Social History Smoking and tobacco status: former smoker Quit status (tobacco): has quit using tobacco Former quit date comment: Patient started smoking at age 20, smoked until 8 years ago Alcohol intake: never Data Anesthesia Cardiac Studies: Echocardiogram 02/19/22
[2022-03-18] MEDS: sodium chloride 0.9% 1,000 ML 30 ML IV (07:00)
--- NOTE | 2022-03-18 07:09 | W.PM.OPSUD ---
Surgery/Procedure H&P Update DATE OF PROCEDURE: March 18, 2022 DATE H&P PERFORMED: 03/10/22 CHANGES TO PREVIOUS DOCUMENTATION: none PREOP DIAGNOSIS: Left lung carcinoma PRIMARY INDICATION FOR PROCEDURE: none PLANNED PROCEDURE: Operation Date: 03/18/22 08:00 Proposed Procedures p Portacath Placement 16742,C34.12(Not Applicable) - Melo Goldsmith DO
[2022-03-18] MEDS: vancomycin 1,000 MG in sodium chloride 0.9% 250 ML 250 MG IV (07:47)
[2022-03-18] MEDS: heparin, porcine 1,000 unit/mL INJ 10 mL 10000 UNIT IRRIGATION (08:19)
--- NOTE | 2022-03-18 08:55 | XRR_ITS ---
PROCEDURE INFORMATION: Exam: XR Chest Exam date and time: 03/18/2022 8:59 AM Age: 66 years old Clinical indication: Device placement; Other: S/P mediport; Prior surgery; Surgery date: Post-operative (0-2 days) TECHNIQUE: Imaging protocol: Radiologic exam of the chest. Views: 1 view. COMPARISON: [place] [id number] 02/19/2022 11:13 AM FINDINGS: Lungs: Lobulated soft tissue mass left upper lung. This finding is stable since prior examination. This finding shows transverse measurement of 88 mm. No consolidation. Pleural spaces: Unremarkable. No pleural effusion. No pneumothorax. Heart/Mediastinum: Unremarkable. No cardiomegaly. Bones/joints: Unremarkable. New lines there is a right central line extending into the SVC XR/XR chest 1V portable [id number] IMPRESSION: 1. Stable left upper lobe mass lesion 2. Right central line is in the SVC
--- NOTE | 2022-03-18 09:04 | PM.OP ---
Operative Report Date of procedure: March 18, 2022 Pre-op diagnosis: Preop Diagnosis Left lung carcinoma Post-op diagnosis: same Procedure done: Mediport insertion Implants: Mediport Surgeon: Dr. Melo Goldsmith DO Anesthesia: MAC Estimated blood loss: 5 Complications: None apparent Brief History: This is a 66-year-old female with left lung cancer. Mediport is indicated. The risks and benefits were explained and documented. Procedure: The Patient was taken to the operating room and placed supine on the operating room table. All bony prominences were padded. She was given IV sedation and monitored throughout the case by the anesthesia personnel. SCDs were placed and turned on. The arms were tucked to the side. Patient received Ancef 2 g preoperatively IV. The bilateral chest wall was prepped and draped in usual sterile fashion using chlorhexidine base prep. Sterile drapes were applied. We did procedure pause prior to beginning. An 18 gauge needle was placed in the right subclavian vein. Dark, nonpulsatile blood was aspirated. A guidewire was placed through the needle centrally toward the atrial/vena caval junction. Fluoroscopy visualized good placement. The needle was removed and the guidewire was clipped to the drape with a hemostat. Further local anesthetic was infiltrated in the soft tissues of the right/left chest wall and a #15 blade was used to make a horizontal skin incision. A subcutaneous Mediport pocket was created using Bovie cautery, dissecting down through the skin and subcutaneous tissues. Meticulous hemostasis was achieved. The Mediport was sutured in position using 3-0 vicryl suture x2 stitches. A #15 blade was used to make a small skin ness around the guidewire insertion area. The Mediport tubing was tunneled through the subcutaneous tissues up to the needle insertion location. A dilator with a peel-away sheath was placed over the guidewire and placed centrally. After measuring with fluoroscopy, the Mediport tubing was cut to length so that the tip would end at the atrial/vena caval junction. The inner cannula and the guidewire were removed, leaving the dilator sheath in place. The Mediport was flushed. The tip of the catheter was inserted through the peel-away sheath and the peel-away sheath removed in the standard fashion. The Mediport was accessed with a straight Mena needle and dark, nonpulsatile blood was aspirated and flushed using heparinized saline to hep-lock the Mediport. Final fluoroscopy visualization showed no kink in the catheter and the tip of the Mediport tubing near the atrial/vena caval junction. Both skin incisions were thoroughly irrigated and suctioned dry. Meticulous hemostasis noted. The Mediport incision was closed using interrupted 3-0 Vicryl suture for the deep dermal layer and 4-0 Vicryl run to close the skin edge. Skin glue was applied as a topical dressing. This was allowed to dry. Patient was awakened from anesthesia and transferred via her cart to the recovery room in stable condition. All needle, sponge, and instrument counts were correct per the operating personnel x2 counts.
--- NOTE | 2022-03-18 12:54 | ANE.PACU2 ---
Inpatient post-anesthesia follow up: Airway intact: Yes Vital signs: Temperature 98.7 F Pulse Rate 86 Respiratory Rate 18 Blood Pressure 134/78 Pulse Oximetry 92 Oxygen Delivery Me thod Room Air Oxygen Flow Rate Fraction of Inspir ed Oxygen Hydration adequate: Yes Nausea and vomiting: No Pain level: 1 Mental status: Baseline
== END 2022-03-18 09:50 | disposition home or self-care (01) ==
PROVIDERS: PCP Nurse Practitioner; Visit Provider Surgery
PROC: (CPT 36561; principal; 2022-03-18 07:50)
DX: C34.12 Malignant neoplasm of upper lobe, left bronchus or lung (principal); J44.9 Chronic obstructive pulmonary disease, unspecified; Z99.81 Dependence on supplemental oxygen; I10 Essential (primary) hypertension; E78.5 Hyperlipidemia, unspecified; E03.9 Hypothyroidism, unspecified; Z87.891 Personal history of nicotine dependence
CPT/HCPCS: 36561; 71045; 77001; C1788; J1644; J2704; J3010; J3370; J7030; J7050

== ENCOUNTER → 2022-03-19 08:53 | Outpatient (BNVA) | payer OTHER, SELFPAY | PROVIDERS: PCP Nurse Practitioner; Visit Provider Internal Medicine Critical Care Medicine | DX: C34.92 Malignant neoplasm of unspecified part of left bronchus or lung (principal); J43.9 Emphysema, unspecified; Z87.891 Personal history of nicotine dependence | CPT/HCPCS: 99214 ==

== ENCOUNTER 2022-03-24 13:39 | Outpatient (CLI) | payer OTHER, SELFPAY ==
--- NOTE | 2022-03-24 13:56 | PFTS_ITS ---
Date of Study:03/24/22 Date of Dictation: 03/27/2022 MECHANICS: Postbronchodilator forced vital capacity (FVC) is normal. Postbronchodilator forced expiratory volume in one second (FEV1) is moderately reduced. FEV1/FVC is reduced. There is no significant bronchodilator response. FLOW VOLUME LOOP: Sloping of expiratory limb suggestive of airflow obstruction . LUNG VOLUMES: Total lung capacity (TLC) is normal. Residual volume (RV) is normal. DIFFUSING CAPACITY FOR CARBON MONOXIDE: Moderately reduced . INTERPRETATION: The postbronchodilator is spirometry suggestive of moderate airflow obstruction. There is no significant bronchodilator response. Lung volumes are normal. There is moderate gas transfer defect somewhat out of proportion to spirometry, suspect coexisting pulmonary vascular disease. Clinical correlation recommended. MTDD
== END 2022-03-24 13:40 | disposition home or self-care (01) ==
LOC: RT 13:40
PROVIDERS: PCP Nurse Practitioner; Visit Provider Internal Medicine Critical Care Medicine
DX: J44.9 Chronic obstructive pulmonary disease, unspecified (principal)
CPT/HCPCS: 77014; 77386; 94060; 94726; 94729; J7614

== ENCOUNTER 2022-03-27 08:20 | Oncology outpatient (recurring) (ONCR) | payer OTHER, SELFPAY ==
--- NOTE | 2022-03-03 07:19 | MR_ITS ---
WS: [id number] MRI BRAIN WITH AND WITHOUT CONTRAST HISTORY: STAGING FOR LUNG CANCER COMPARISON: None available. TECHNIQUE: Multiplanar imaging performed through the brain with ProHance 12 ml's IV. No acute infarcts are seen. Martin-white matter differentiation is well preserved. There are minimal sm all vessel ischemic changes. No prior infarct. No susceptibility artifacts or prior lacunar infarcts. Ventricles and extra-axial spaces are normal. Clivus and pituitary gland are normal. Visualized posterior fossa and brainstem are also normal. Postcontrast images are negative for masses or vascular malformations. Dural venous sinuses are normal. Paranasal sinuses: Well aerated with no significant disease. Mastoid air cells: Normal. Calvarium and scalp: Normal. MR/MR head wo/w con [id number] IMPRESSION: 1. No metastatic lesions within the brain. 2. Very minimal small vessel ischemic changes. No prior infarct. 3. Normal enhancement.
--- NOTE | 2022-03-12 09:12 | N.ONRAD NP_ITS ---
Radiation Oncology Consultation Patient Name: Des Tucker Date of : 1955 Date of Service: 03/12/2022 Attending Physician: Blaine Malagon M.D. Yvonne Tucker was seen in consultation this morning at the request of Sylvester Dyer M.D. for consideration of thoracic radiotherapy in the management of a recently diagnosed non-small cell lung cancer. The patient was evaluated at the [facility] [place] Emergency Department in January for persistent fever and malaise. A chest radiograph ordered on February 19, 2022 revealed a large, consolidated density in the left upper lobe of the lung. A thoracoabdominopelvic CT scan demonstrated a wedge-shaped left upper lobe consolidation with narrowing of the left upper lobe bronchus. Lymphadenopathy was difficult to assess without the administration of contrast material. She was admitted for sepsis related to post-obstructive pneumonia. No growth was identified from the obtained blood cultures. Broad-spectrum antibiotics were prescribed. A bronchoscopy with endobronchial ultrasound-guided biopsy performed by April Mann M.D. on February 20, 2022. Intra-operative findings reported narrowing of the segmental bronchi in the left upper lobe. Specimens obtained from the left hilar mass and pulmonary lymph node station 7 diagnosed a poorly- differentiated adenocarcinoma. She was discharged on hospital day 4. An MRI of the brain completed on March 03, 2022 did not characterize intracranial lesions. A PET scan (independently reviewed in [facility]) obtained on March 07, 2022 confirmed the left upper lobe hypermetabolic activity measuring 4.4 cm x 6.2 cm (SUV of 10.6), left hilar lymphadenopathy (SUV 8.5), left princess-bronchial lymphadenopathy, left paratracheal lymphadenopathy, and bilateral thoracic inlet adenopathy. No metastatic disease was reported. The patient was evaluated for definitive thoracic radiotherapy. I discussed with Ms. Tucker the [place] [employer] on Cancer Staging for lung cancer and specifically, the clinical stage IIIC (T3N3) lung cancer corresponding to her disease. I also reviewed the National Comprehensive Cancer Network Guidelines recommending concurrent chemoradiotherapy for the management of locally advanced lung cancer established by the classic study, RTOG 9410, comparing sequential versus concurrent chemoradiotherapy that demonstrated an overall survival advantage for the concurrent chemoradiotherapy regimen. I would endorse a six week course of thoracic radiotherapy. A computed tomographic radiotherapy planning scan with contrast in the treatment position will be acquired and co-registered to the patient's staging PET scan to identify the gross tumor volumes. The potential toxicities of thoracic radiotherapy were reviewed. The patient has verbalized understanding would like to proceed as recommended. The patient???s treatment plan was discussed with Sylvester Dyer M.D. Signed by: Dr. Blaine Malagon 03/12/2022 9:11:28 AM
--- NOTE | 2022-03-17 | CT_ITS ---
Radiation Therapy Planning CT images; total exam DLP: 285.13 mGy-cm MTDD
[2022-03-24 08:45] VITALS: BMI 21.2
[2022-03-24 08:56] LABS: Basophils # 0.1 10^3/uL (0.0-0.1); Basophils % 1.1 %; Eosinophils # 0.8 10^3/uL (0.0-0.8); Eosinophils % 8.8 %; Hematocrit 32.5 % (37.0-47.0); Hemoglobin 10.8 g/dL (11.5-15.3); Lymphocytes # 2.3 10^3/uL (0.8-4.8); Lymphocytes % 24.8 %; Mean Corpuscular HGB Conc 33.2 g/dL (30.0-36.0); Mean Corpuscular Hemoglobin 28.5 pg (28.0-34.0); Mean Corpuscular Volume 85.8 fl (81-99); Mean Platelet Volume 9.4 fL (7.4-10.4); Monocytes # 0.8 10^3/uL (0.2-0.9); Monocytes % 8.3 %; Neutrophils # 5.37 10^3/uL (1.8-7.7); Neutrophils % 56.7 %; Nucleated Red Blood Cells % 0 %; Platelet Count 306 10^3/cmm (130-400); Red Blood Count 3.79 10^6/uL (4.1-5.3); Red Cell Distribution Width 13.8 % (12.1-15.1); White Blood Count 9.5 10^3/uL (4.0-10.0)
[2022-03-24 09:21] LABS: Alanine Aminotransferase 27 U/L (0-33); Albumin Level 3.9 g/dL (3.5-5.2); Alkaline Phosphatase 92 IU/L (35-105); Anion Gap 14.2 (5-19); Aspartate Amino Transferase 28 U/L (0-32); Blood Urea Nitrogen 13 mg/dL (8-23); Calcium 9.2 mg/dL (8.5-10.5); Carbon Dioxide 26 mmol/L (22-29); Chloride 101 mmol/L (98-107); Globulin 2.9 g/dL (1.3-4.6); Glomerular Filtration Rate 124.2 mL/min (90-130); Glucose 96 mg/dL (65-115); Osmolality Calculated 284 mOsm/kg (285-295); Potassium 4.2 mmol/L (3.5-5.1); Sodium 137 mmol/L (136-145); Total Bilirubin 0.3 mg/dL (0.15-1.2); Total Protein 6.8 g/dL (6.6-8.7)
[2022-03-25] MEDS: sodium chloride 0.9% 250 ML 75 ML IV (10:01)
[2022-03-25] MEDS: acetaminophen 325 mg Tablet 650 MG PO (10:02)
[2022-03-25] MEDS: famotidine 20 mg/2 mL INJ IVP (10:03)
[2022-03-25] MEDS: diphenhydrAMINE 50 mg/mL SDV 1mL 25 MG IVP (10:08)
[2022-03-25] MEDS: dexamethasone 20 MG in sodium chloride 0.9% 50 ML 188 MG IV (10:16)
[2022-03-25] MEDS: palonosetron 0.25 mg/5 mL SDV IVP (10:16)
[2022-03-25 11:00] VITALS: BP 115/70; PULSE 76; RESP 18; O2SAT 96
[2022-03-25 11:15] VITALS: BP 108/73; PULSE 72; RESP 18; O2SAT 95
[2022-03-25] MEDS: CARBOplatin 260 MG in sodium chloride 0.9% 500 ML 526 MG IV (12:21)
[2022-03-25 13:35] VITALS: BP 103/68; PULSE 68; RESP 18; TEMP 36.2; O2SAT 97
== END 2022-03-29 23:59 | disposition home or self-care (01) ==
PROVIDERS: Absent Provider Internal Medicine Medical Oncology; PCP Nurse Practitioner; Visit Provider Specialist
DX: C34.12 Malignant neoplasm of upper lobe, left bronchus or lung; Z51.0 Encounter for antineoplastic radiation therapy
CPT/HCPCS: 36415; 36591; 70553; 77334; 77386; 77470; 80053; 85025; 96367; 96375; 96413; 96417; 99205; 99215; J1100; J1200; J2469; J3490; J7030; J7040; J7050; J9045; J9267

== ENCOUNTER → 2022-04-02 12:42 | Outpatient (BNVA) | payer OTHER, SELFPAY | PROVIDERS: PCP Nurse Practitioner; Visit Provider Surgery | DX: Z98.890 Other specified postprocedural states (principal) | CPT/HCPCS: 99213 ==

== ENCOUNTER 2022-04-29 08:00 | Oncology outpatient (recurring) (ONCR) | payer OTHER, SELFPAY ==
--- NOTE | 2022-03-30 09:00 | ONCRAD TMN_ITS ---
Radiation Oncology Treatment Management Note Patient Name: Des Tucker Date of : 1955 Date of Service: 03/30/2022 Attending Physician: Blaine Malagon M.D. 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 The patient was evaluated at the [facility]'s Emergency Department in January for persistent fever and malaise. A chest radiograph ordered on February 19, 2022 revealed a large, consolidated density in the left upper lobe of the lung. A thoracoabdominopelvic CT scan demonstrated a wedge-shaped left upper lobe consolidation with narrowing of the left upper lobe bronchus. Lymphadenopathy was difficult to assess without the administration of contrast material. She was admitted for sepsis related to post-obstructive pneumonia. No growth was identified from the obtained blood cultures. Broad-spectrum antibiotics were prescribed. A bronchoscopy with endobronchial ultrasound-guided biopsy performed by April Mann M.D. on February 20, 2022. Intra-operative findings reported narrowing of the segmental bronchi in the left upper lobe. Specimens obtained from the left hilar mass and pulmonary lymph node station 7 diagnosed a poorly- differentiated adenocarcinoma. She was discharged on hospital day 4. An MRI of the brain completed on March 03, 2022 did not characterize intracranial lesions. A PET scan obtained on March 07, 2022 confirmed the left upper lobe hypermetabolic activity measuring 4.4 cm x 6.2 cm (SUV of 10.6), left hilar lymphadenopathy (SUV 8.5), left princess-bronchial lymphadenopathy, left paratracheal lymphadenopathy, and bilateral thoracic inlet adenopathy. No metastatic disease was reported. The patient has received 10 Gy of a prescribed 60 Martin with an intensity modulated radiotherapy plan utilizing a step and shoot treatment technique. She has been prescribed carboplatin (AUC 2) and paclitaxel (50 mg/m???) weekly during therapy. Upon review of systems, she described a rash under her breasts. On physical examination, the patient weighed 130 lbs. Her temperature was 97 ???F and the blood pressure was 109/68 mmHg. The pulse was 78 bpm and her respiratory rate was 16. Oxygen saturation while breathing room air was 96%. There was no erythema within the treatment pérez. A papular rash was present within the infra-mammary folds. Continue thoracic radiotherapy as prescribed. I recommended 1% hydrocortisone cream for the rash. Signed by: Dr. Blaine Malagon 03/30/2022 8:58:46 AM
[2022-04-01 09:30] LABS: Basophils # 0.1 10^3/uL (0.0-0.1); Basophils % 1.1 %; Eosinophils # 0.5 10^3/uL (0.0-0.8); Eosinophils % 9.2 %; Hematocrit 31.4 % (37.0-47.0); Hemoglobin 10.6 g/dL (11.5-15.3); Lymphocytes % 17.9 %; Mean Corpuscular HGB Conc 33.8 g/dL (30.0-36.0); Mean Corpuscular Hemoglobin 28.3 pg (28.0-34.0); Mean Platelet Volume 9.6 fL (7.4-10.4); Monocytes # 0.4 10^3/uL (0.2-0.9); Monocytes % 8.1 %; Neutrophils # 3.33 10^3/uL (1.8-7.7); Neutrophils % 62.9 %; Nucleated Red Blood Cells % 0 %; Platelet Count 301 10^3/cmm (130-400); Red Blood Count 3.74 10^6/uL (4.1-5.3); Red Cell Distribution Width 13.3 % (12.1-15.1); White Blood Count 5.3 10^3/uL (4.0-10.0)
[2022-04-01 09:41] LABS: Alanine Aminotransferase 22 U/L (0-33); Albumin Level 3.7 g/dL (3.5-5.2); Alkaline Phosphatase 80 IU/L (35-105); Anion Gap 14.8 (5-19); Aspartate Amino Transferase 22 U/L (0-32); Blood Urea Nitrogen 13 mg/dL (8-23); Calcium 9.5 mg/dL (8.5-10.5); Carbon Dioxide 28 mmol/L (22-29); Chloride 98 mmol/L (98-107); Globulin 3.2 g/dL (1.3-4.6); Glomerular Filtration Rate 123.8 mL/min (90-130); Glucose 88 mg/dL (65-115); Osmolality Calculated 282 mOsm/kg (285-295); Potassium 4.8 mmol/L (3.5-5.1); Sodium 136 mmol/L (136-145); Total Bilirubin 0.5 mg/dL (0.15-1.2); Total Protein 6.9 g/dL (6.6-8.7)
[2022-04-01] MEDS: sodium chloride 0.9% 250 ML 100 ML IV (10:41)
[2022-04-01] MEDS: famotidine 20 mg/2 mL INJ IVP (10:41)
[2022-04-01] MEDS: acetaminophen 325 mg Tablet 650 MG PO (10:42)
[2022-04-01] MEDS: diphenhydrAMINE 50 mg/mL SDV 1mL 25 MG IVP (10:42)
[2022-04-01] MEDS: palonosetron 0.25 mg/5 mL SDV IVP (10:48)
[2022-04-01] MEDS: dexamethasone 20 MG in sodium chloride 0.9% 50 ML 188 MG IV (10:48)
[2022-04-01] MEDS: PACLitaxeL 80 MG in sodium chloride 0.9%(non-DEHP) 250 ML 263.33 MG IV (11:16)
[2022-04-01] MEDS: CARBOplatin 260 MG in sodium chloride 0.9% 500 ML 526 MG IV (11:54)
[2022-04-01 13:14] VITALS: BP 91/62; PULSE 91; TEMP 36.7; O2SAT 90
--- NOTE | 2022-04-06 09:20 | ONCRAD TMN_ITS ---
Radiation Oncology Treatment Management Note Patient Name: Des Tucker Date of : 1955 Date of Service: 04/06/2022 Attending Physician: Blaine Malagon M.D. 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 The patient was evaluated at the [facility]'s Emergency Department in January for persistent fever and malaise. A chest radiograph ordered on February 19, 2022 revealed a large, consolidated density in the left upper lobe of the lung. A thoracoabdominopelvic CT scan demonstrated a wedge-shaped left upper lobe consolidation with narrowing of the left upper lobe bronchus. Lymphadenopathy was difficult to assess without the administration of contrast material. She was admitted for sepsis related to post-obstructive pneumonia. No growth was identified from the obtained blood cultures. Broad-spectrum antibiotics were prescribed. A bronchoscopy with endobronchial ultrasound-guided biopsy performed by April Mann M.D. on February 20, 2022. Intra-operative findings reported narrowing of the segmental bronchi in the left upper lobe. Specimens obtained from the left hilar mass and pulmonary lymph node station 7 diagnosed a poorly- differentiated adenocarcinoma. She was discharged on hospital day 4. An MRI of the brain completed on March 03, 2022 did not characterize intracranial lesions. A PET scan obtained on March 07, 2022 confirmed the left upper lobe hypermetabolic activity measuring 4.4 cm x 6.2 cm (SUV of 10.6), left hilar lymphadenopathy (SUV 8.5), left princess-bronchial lymphadenopathy, left paratracheal lymphadenopathy, and bilateral thoracic inlet adenopathy. No metastatic disease was reported. The patient has received 20 Gy of a prescribed 60 Martin with an intensity modulated radiotherapy plan utilizing a step and shoot treatment technique. She has been prescribed carboplatin (AUC 2) and paclitaxel (50 mg/m???) weekly during therapy. Upon review of systems, she described a rash under her breasts. On physical examination, the patient weighed 129 lbs. Her temperature was 97.2 ???F and the blood pressure was 109/72 mmHg. The pulse was 75 bpm and her respiratory rate was 16. Oxygen saturation while breathing room air was 98%. Bronchovesicular breath sounds were auscultated. There was no erythema within the treatment pérez. Continue thoracic radiotherapy as planned. Signed by: Dr. Blaine Malagon 04/06/2022 9:19:20 AM
[2022-04-08 08:40] VITALS: BMI 20.9
[2022-04-08 08:54] LABS: Basophils % 0.8 %; Eosinophils # 0.3 10^3/uL (0.0-0.8); Eosinophils % 6.9 %; Hematocrit 29.6 % (37.0-47.0); Hemoglobin 9.8 g/dL (11.5-15.3); Lymphocytes # 0.5 10^3/uL (0.8-4.8); Lymphocytes % 13.9 %; Mean Corpuscular HGB Conc 33.1 g/dL (30.0-36.0); Mean Corpuscular Hemoglobin 27.9 pg (28.0-34.0); Mean Corpuscular Volume 84.3 fl (81-99); Mean Platelet Volume 9.4 fL (7.4-10.4); Monocytes # 0.3 10^3/uL (0.2-0.9); Monocytes % 8.1 %; Neutrophils # 2.51 10^3/uL (1.8-7.7); Neutrophils % 69.7 %; Nucleated Red Blood Cells % 0 %; Platelet Count 206 10^3/cmm (130-400); Red Blood Count 3.51 10^6/uL (4.1-5.3); White Blood Count 3.6 10^3/uL (4.0-10.0)
[2022-04-08 09:26] LABS: Alanine Aminotransferase 22 U/L (0-33); Albumin Level 3.8 g/dL (3.5-5.2); Alkaline Phosphatase 75 IU/L (35-105); Anion Gap 15.4 (5-19); Aspartate Amino Transferase 24 U/L (0-32); Blood Urea Nitrogen 10 mg/dL (8-23); Calcium 9.6 mg/dL (8.5-10.5); Carbon Dioxide 27 mmol/L (22-29); Chloride 101 mmol/L (98-107); Globulin 2.7 g/dL (1.3-4.6); Glomerular Filtration Rate 123.8 mL/min (90-130); Glucose 109 mg/dL (65-115); Osmolality Calculated 288 mOsm/kg (285-295); Potassium 4.4 mmol/L (3.5-5.1); Sodium 139 mmol/L (136-145); Total Bilirubin 0.5 mg/dL (0.15-1.2); Total Protein 6.5 g/dL (6.6-8.7)
[2022-04-08] MEDS: sodium chloride 0.9% 250 ML 75 ML IV (10:32)
[2022-04-08] MEDS: acetaminophen 325 mg Tablet 650 MG PO (10:33)
[2022-04-08] MEDS: famotidine 20 mg/2 mL INJ IVP (10:34)
[2022-04-08] MEDS: diphenhydrAMINE 50 mg/mL SDV 1mL 25 MG IVP (10:37)
[2022-04-08] MEDS: palonosetron 0.25 mg/5 mL SDV IVP (10:48)
[2022-04-08] MEDS: dexamethasone 20 MG in sodium chloride 0.9% 50 ML 188 MG IV (10:49)
[2022-04-08] MEDS: PACLitaxeL 80 MG in sodium chloride 0.9%(non-DEHP) 250 ML 263.33 MG IV (11:30)
[2022-04-08] MEDS: CARBOplatin 260 MG in sodium chloride 0.9% 500 ML 526 MG IV (12:39)
[2022-04-08 13:58] VITALS: BP 104/65; PULSE 91; RESP 18; TEMP 36.2; O2SAT 93
--- NOTE | 2022-04-13 09:20 | ONCRAD TMN_ITS ---
Radiation Oncology Treatment Management Note Patient Name: Des Tucker Date of : 1955 Date of Service: 04/13/2022 Attending Physician: Blaine Malagon M.D. 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 The patient was evaluated at the [facility]'s Emergency Department in January for persistent fever and malaise. A chest radiograph ordered on February 19, 2022 revealed a large, consolidated density in the left upper lobe of the lung. A thoracoabdominopelvic CT scan demonstrated a wedge-shaped left upper lobe consolidation with narrowing of the left upper lobe bronchus. Lymphadenopathy was difficult to assess without the administration of contrast material. She was admitted for sepsis related to post-obstructive pneumonia. No growth was identified from the obtained blood cultures. Broad-spectrum antibiotics were prescribed. A bronchoscopy with endobronchial ultrasound-guided biopsy performed by April Mann M.D. on February 20, 2022. Intra-operative findings reported narrowing of the segmental bronchi in the left upper lobe. Specimens obtained from the left hilar mass and pulmonary lymph node station 7 diagnosed a poorly- differentiated adenocarcinoma. She was discharged on hospital day 4. An MRI of the brain completed on March 03, 2022 did not characterize intracranial lesions. A PET scan obtained on March 07, 2022 confirmed the left upper lobe hypermetabolic activity measuring 4.4 cm x 6.2 cm (SUV of 10.6), left hilar lymphadenopathy (SUV 8.5), left princess-bronchial lymphadenopathy, left paratracheal lymphadenopathy, and bilateral thoracic inlet adenopathy. No metastatic disease was reported. The patient has received 30 Gy of a prescribed 60 Martin with an intensity modulated radiotherapy plan utilizing a step and shoot treatment technique. She has been prescribed carboplatin (AUC 2) and paclitaxel (50 mg/m???) weekly during therapy. Upon review of systems, she described a rash under her breasts. On physical examination, the patient weighed 129 lbs. Her temperature was 96.9 ???F and the blood pressure was 101/67 mmHg. The pulse was 86 bpm and her respiratory rate was 16. Oxygen saturation while breathing room air was 97%. Bronchovesicular breath sounds were auscultated. There was no erythema within the treatment pérez. Continue thoracic radiotherapy as prescribed. Signed by: Dr. Blaine Malagon 04/13/2022 9:18:51 AM
[2022-04-15 09:12] VITALS: BMI 20.6
[2022-04-15 09:17] LABS: Basophils % 1.1 %; Eosinophils # 0.1 10^3/uL (0.0-0.8); Eosinophils % 2.8 %; Hematocrit 28.3 % (37.0-47.0); Hemoglobin 9.6 g/dL (11.5-15.3); Lymphocytes # 0.4 10^3/uL (0.8-4.8); Lymphocytes % 13.1 %; Mean Corpuscular HGB Conc 33.9 g/dL (30.0-36.0); Mean Corpuscular Hemoglobin 28.7 pg (28.0-34.0); Mean Corpuscular Volume 84.5 fl (81-99); Mean Platelet Volume 9.3 fL (7.4-10.4); Monocytes # 0.3 10^3/uL (0.2-0.9); Neutrophils # 2.01 10^3/uL (1.8-7.7); Neutrophils % 71.3 %; Nucleated Red Blood Cells % 0 %; Platelet Count 145 10^3/cmm (130-400); Red Blood Count 3.35 10^6/uL (4.1-5.3); Red Cell Distribution Width 14.4 % (12.1-15.1); White Blood Count 2.8 10^3/uL (4.0-10.0)
[2022-04-15 09:38] LABS: Alanine Aminotransferase 21 U/L (0-33); Albumin Level 3.8 g/dL (3.5-5.2); Alkaline Phosphatase 65 U/L (35-105); Anion Gap 13.5 (5-19); Aspartate Amino Transferase 25 U/L (0-32); Blood Urea Nitrogen 11 mg/dL (8-23); Calcium 8.8 mg/dL (8.5-10.5); Carbon Dioxide 26 mmol/L (22-29); Chloride 99 mmol/L (98-107); Globulin 2.9 g/dL (1.3-4.6); Glomerular Filtration Rate 123.8 mL/min (90-130); Glucose 103 mg/dL (65-115); Osmolality Calculated 278 mOsm/kg (285-295); Potassium 4.5 mmol/L (3.5-5.1); Sodium 134 mmol/L (136-145); Total Bilirubin 0.6 mg/dL (0.15-1.2); Total Protein 6.7 g/dL (6.6-8.7)
[2022-04-15] MEDS: sodium chloride 0.9% 250 ML 75 ML IV (10:43)
[2022-04-15] MEDS: acetaminophen 325 mg Tablet 650 MG PO (10:46)
[2022-04-15] MEDS: famotidine 20 mg/2 mL INJ IVP (10:47)
[2022-04-15] MEDS: diphenhydrAMINE 50 mg/mL SDV 1mL 25 MG IVP (10:51)
[2022-04-15] MEDS: palonosetron 0.25 mg/5 mL SDV IVP (10:56)
[2022-04-15] MEDS: dexamethasone 20 MG in sodium chloride 0.9% 50 ML 188 MG IV (10:57)
[2022-04-15] MEDS: PACLitaxeL 80 MG in sodium chloride 0.9%(non-DEHP) 250 ML 263.33 MG IV (11:29)
[2022-04-15] MEDS: CARBOplatin 260 MG in sodium chloride 0.9% 500 ML 526 MG IV (12:31)
[2022-04-15 13:50] VITALS: BP 111/66; PULSE 98; RESP 18; TEMP 36.2; O2SAT 97
--- NOTE | 2022-04-20 09:15 | ONCRAD TMN_ITS ---
Radiation Oncology Treatment Management Note Patient Name: Des Tucker Date of : 1955 Date of Service: 04/20/2022 Attending Physician: Blaine Malagon M.D. 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 The patient was evaluated at the [facility]'s Emergency Department in January for persistent fever and malaise. A chest radiograph ordered on February 19, 2022 revealed a large, consolidated density in the left upper lobe of the lung. A thoracoabdominopelvic CT scan demonstrated a wedge-shaped left upper lobe consolidation with narrowing of the left upper lobe bronchus. Lymphadenopathy was difficult to assess without the administration of contrast material. She was admitted for sepsis related to post-obstructive pneumonia. No growth was identified from the obtained blood cultures. Broad-spectrum antibiotics were prescribed. A bronchoscopy with endobronchial ultrasound-guided biopsy performed by April Mann M.D. on February 20, 2022. Intra-operative findings reported narrowing of the segmental bronchi in the left upper lobe. Specimens obtained from the left hilar mass and pulmonary lymph node station 7 diagnosed a poorly- differentiated adenocarcinoma. She was discharged on hospital day 4. An MRI of the brain completed on March 03, 2022 did not characterize intracranial lesions. A PET scan obtained on March 07, 2022 confirmed the left upper lobe hypermetabolic activity measuring 4.4 cm x 6.2 cm (SUV of 10.6), left hilar lymphadenopathy (SUV 8.5), left princess-bronchial lymphadenopathy, left paratracheal lymphadenopathy, and bilateral thoracic inlet adenopathy. No metastatic disease was reported. The patient has received 40 Gy of a prescribed 60 Martin with an intensity modulated radiotherapy plan utilizing a step and shoot treatment technique. She has been prescribed carboplatin (AUC 2) and paclitaxel (50 mg/m???) weekly during therapy. Upon review of systems, she described odynophagia. On physical examination, the patient weighed 126 lbs. Her temperature was 98.3 ???F and the blood pressure was 106/74 mmHg. The pulse was 115 bpm and her respiratory rate was 18. Oxygen saturation while breathing room air was 98%. Bronchovesicular breath sounds were present. There was no erythema within the treatment pérez. Continue thoracic radiotherapy as planned. I will prescribe oxycodone elixir for odynophagia. Signed by: Dr. Blaine Malagon 04/20/2022 9:14:05 AM
[2022-04-21 11:14] LABS: Basophils % 0.8 %; Eosinophils # 0.1 10^3/uL (0.0-0.8); Eosinophils % 2.5 %; Hematocrit 23.1 % (37.0-47.0); Lymphocytes # 0.3 10^3/uL (0.8-4.8); Lymphocytes % 11.3 %; Mean Corpuscular HGB Conc 34.6 g/dL (30.0-36.0); Mean Corpuscular Hemoglobin 28.7 pg (28.0-34.0); Mean Corpuscular Volume 82.8 fl (81-99); Mean Platelet Volume 9.3 fL (7.4-10.4); Monocytes # 0.2 10^3/uL (0.2-0.9); Monocytes % 8.4 %; Neutrophils # 1.82 10^3/uL (1.8-7.7); Neutrophils % 76.6 %; Nucleated Red Blood Cells % 0 %; Platelet Count 77 10^3/cmm (130-400); Red Blood Count 2.79 10^6/uL (4.1-5.3); Red Cell Distribution Width 15.2 % (12.1-15.1); White Blood Count 2.4 10^3/uL (4.0-10.0)
[2022-04-21 11:38] LABS: Alanine Aminotransferase 16 U/L (0-33); Alkaline Phosphatase 77 U/L (35-105); Anion Gap 15.4 (5-19); Aspartate Amino Transferase 19 U/L (0-32); Blood Urea Nitrogen 21 mg/dL (8-23); Carbon Dioxide 26 mmol/L (22-29); Chloride 92 mmol/L (98-107); Globulin 2.4 g/dL (1.3-4.6); Glomerular Filtration Rate 100.3 mL/min (90-130); Glucose 107 mg/dL (65-115); Osmolality Calculated 271 mOsm/kg (285-295); Potassium 4.4 mmol/L (3.5-5.1); Sodium 129 mmol/L (136-145); Total Bilirubin 0.8 mg/dL (0.15-1.2); Total Protein 6.4 g/dL (6.6-8.7)
[2022-04-21] MEDS: sodium chloride 0.9% 1,000 ML 999 ML IV (11:38)
[2022-04-21 12:49] VITALS: BP 111/73; PULSE 105; TEMP 36.4; O2SAT 97
[2022-04-22] VITALS (9 sets, daily range): BP systolic 79–98; BP diastolic 50–64; PULSE 83–104; RESP 18; TEMP 36.1–36.6; O2SAT 89–98
[2022-04-22] MEDS: acetaminophen 325 mg Tablet 650 MG PO (09:05)
[2022-04-22] MEDS: diphenhydrAMINE 25 mg Capsule PO (09:06)
[2022-04-22] MEDS: sodium chloride 0.9% 100 mL Bag 250 ML IV (10:14)
[2022-04-22] MEDS: FUROsemide 10 mg/mL SDV 2mL 20 MG IVP (12:10)
[2022-04-24 08:51] LABS: Basophils % 0.8 %; Eosinophils # 0.1 10^3/uL (0.0-0.8); Eosinophils % 5.7 %; Hematocrit 27.7 % (37.0-47.0); Hemoglobin 9.8 g/dL (11.5-15.3); Lymphocytes # 0.2 10^3/uL (0.8-4.8); Lymphocytes % 13.9 %; Mean Corpuscular HGB Conc 35.4 g/dL (30.0-36.0); Mean Corpuscular Hemoglobin 29.1 pg (28.0-34.0); Mean Corpuscular Volume 82.2 fl (81-99); Mean Platelet Volume 9.2 fL (7.4-10.4); Monocytes # 0.1 10^3/uL (0.2-0.9); Neutrophils % 69.8 %; Nucleated Red Blood Cells % 0 %; Platelet Count 83 10^3/cmm (130-400); Red Blood Count 3.37 10^6/uL (4.1-5.3); Red Cell Distribution Width 15.4 % (12.1-15.1); White Blood Count 1.2 10^3/uL (4.0-10.0)
[2022-04-24 09:04] LABS: Neutrophils # 0.85 10^3/uL (1.8-7.7)
--- NOTE | 2022-04-24 09:19 | PC.NURSE ---
ANC reported to , order for levaquin 500 mg po daily x5 sent to [facility] pharmacy on [address]. pt notified of rx and lab results.
--- NOTE | 2022-04-27 09:20 | ONCRAD TMN_ITS ---
Radiation Oncology Weekly Treatment Management Patient: Caitlin Nunes> MR#: [id number] : 1955> Attending Physician: Dr. Geovanny Avery Date of Service: 04/27/2022 Referring Physician(s) : Sylvester Dyer M.D. Diagnosis: C34.10 - Malignant neoplasm of upper lobe, unspecified bronchus or lung, Diagnosed 02/20/2022 (Active) Stage IIIC, T3, N3, M0 [facility], Ref. ID: [id number], Energy: 6X, Dose/Fx (cGy): 200, #Fx: , Dose Correction (cGy): 0, Total Dose (cGy): 5,000, Start Date: 03/24/2022, Elapsed Days: 34 Reason for visit: The patient is being seen today as part of their regularly scheduled weekly on treatment visits to assess for acute toxicities from radiotherapy. Review of Systems: She has received 25 of 30 prescribed treatments. She is receiving concomitant carboplatinum and Taxol. Chemotherapy was held last week due to a low platelet count. She is having a CBC today and may receive chemotherapy today. She has not had any unusual bleeding, bruising, or petechiae. Her main complaint is fatigue. She has esophagitis which is helped by oxycodone elixir. She has early satiety. She is eating enough to avoid excessive weight loss. We discussed measures for getting extra calories. No skin reaction. Her breathing is stable on 2 L O2 per nasal cannula. Vital Signs: Performed on 04/27/2022 8:50 AM BMI - 20.369 kg/m2, Height - 66 in, Weight - 126.2 lbs, Temperature - 98.7 f, Pulse - 99 /min, Respiration - 18 /min, O2 Sat - 100 %, Pain - 0, Fatigue - 5 and BP - 98/ 68 mm(hg). Physical Exam: Alert, oriented, no acute distress. No cervical or supraclavicular lymphadenopathy. Lungs clear to percussion. On auscultation no rales rhonchi or wheezes. Heart rhythm regular. No murmur or gallop. Imaging: Radiation therapy imaging related to accurate target localization (i.e. KV, MV and CBCT) was reviewed. Appropriate changes, if any, were made to ensure treatment accuracy. Plan: Continue radiation and chemotherapy per plan. She may receive chemotherapy today. We discussed that she should be on the lookout for bleeding, bruising, or petechiae. Signed by: Dr. Geovanny Avery 04/27/2022 9:19:09 AM
[2022-04-27 09:23] LABS: Basophils % 0.8 %; Eosinophils # 0.1 10^3/uL (0.0-0.8); Hematocrit 27.3 % (37.0-47.0); Hemoglobin 9.4 g/dL (11.5-15.3); Lymphocytes # 0.2 10^3/uL (0.8-4.8); Lymphocytes % 14.3 %; Mean Corpuscular HGB Conc 34.4 g/dL (30.0-36.0); Mean Corpuscular Hemoglobin 28.9 pg (28.0-34.0); Mean Platelet Volume 8.7 fL (7.4-10.4); Monocytes # 0.2 10^3/uL (0.2-0.9); Monocytes % 16.8 %; Neutrophils % 62.3 %; Nucleated Red Blood Cells % 0 %; Platelet Count 162 10^3/cmm (130-400); Red Blood Count 3.25 10^6/uL (4.1-5.3); Red Cell Distribution Width 16.2 % (12.1-15.1); White Blood Count 1.2 10^3/uL (4.0-10.0)
[2022-04-27 09:24] VITALS: BMI 20.3
[2022-04-27 09:27] LABS: Neutrophils # 0.74 10^3/uL (1.8-7.7)
[2022-04-27 09:45] LABS: Alanine Aminotransferase 40 U/L (0-33); Albumin Level 3.5 g/dL (3.5-5.2); Alkaline Phosphatase 69 U/L (35-105); Anion Gap 16.4 (5-19); Aspartate Amino Transferase 37 U/L (0-32); Blood Urea Nitrogen 12 mg/dL (8-23); Calcium 8.7 mg/dL (8.5-10.5); Carbon Dioxide 25 mmol/L (22-29); Chloride 95 mmol/L (98-107); Globulin 2.9 g/dL (1.3-4.6); Glomerular Filtration Rate 160.2 mL/min (90-130); Glucose 107 mg/dL (65-115); Osmolality Calculated 274 mOsm/kg (285-295); Potassium 4.4 mmol/L (3.5-5.1); Sodium 132 mmol/L (136-145); Total Bilirubin 0.5 mg/dL (0.15-1.2); Total Protein 6.4 g/dL (6.6-8.7)
[2022-04-29 08:42] LABS: Hematocrit 29.4 % (37.0-47.0); Hemoglobin 9.9 g/dL (11.5-15.3); Mean Corpuscular HGB Conc 33.7 g/dL (30.0-36.0); Mean Corpuscular Hemoglobin 28.9 pg (28.0-34.0); Mean Corpuscular Volume 85.7 fl (81-99); Mean Platelet Volume 8.8 fL (7.4-10.4); Platelet Count 307 10^3/cmm (130-400); Red Blood Count 3.43 10^6/uL (4.1-5.3); Red Cell Distribution Width 16.7 % (12.1-15.1); White Blood Count 3.2 10^3/uL (4.0-10.0)
[2022-04-29 09:07] LABS: Alanine Aminotransferase 38 U/L (0-33); Albumin Level 3.5 g/dL (3.5-5.2); Alkaline Phosphatase 76 U/L (35-105); Aspartate Amino Transferase 32 U/L (0-32); Blood Urea Nitrogen 9 mg/dL (8-23); Carbon Dioxide 25 mmol/L (22-29); Chloride 99 mmol/L (98-107); Globulin 2.8 g/dL (1.3-4.6); Glomerular Filtration Rate 223.3 mL/min (90-130); Glucose 115 mg/dL (65-115); Osmolality Calculated 278 mOsm/kg (285-295); Sodium 134 mmol/L (136-145); Total Bilirubin 0.4 mg/dL (0.15-1.2); Total Protein 6.3 g/dL (6.6-8.7)
[2022-04-29 09:13] LABS: Slide Review Slide Review Perform
[2022-04-29 09:14] LABS: Absolute Neutrophil 2.2 10^3/cmm (1.4-6.5); Absolute Segmented Neutrophil 1.6 10/cmm (1.6-7.1); Band Neutrophils Absolute 0.6 10^3/cmm (0.0-1.2); Eosinophils 3 %; Lymphocytes 10 %; Lymphocytes Absolute 0.5 10^3/cmm (1.2-3.4); Monocytes Absolute 0.3 10^3/cmm (0.1-0.6); Platelet Estimate Normal (Normal); Segmented Neutrophils 51 %; Total Cells Counted 100 (0-100)
[2022-04-29 09:15] LABS: Blastocytes 1 % (0-0)
[2022-05-01 14:21] LABS: Leukemia Profile (BBPL) See Report; Lymphoma Profile (BBPL) See Report
== END 2022-04-29 23:59 | disposition home or self-care (01) ==
PROVIDERS: Nurse Practitioner Family; Absent Provider Internal Medicine Medical Oncology; PCP Nurse Practitioner; Visit Provider Specialist
DX: Z51.0 Encounter for antineoplastic radiation therapy; C34.12 Malignant neoplasm of upper lobe, left bronchus or lung; D70.1 Agranulocytosis secondary to cancer chemotherapy; T45.1X5A Adverse effect of antineoplastic and immunosuppressive drugs, initial encounter; Z79.899 Other long term (current) drug therapy; Z87.891 Personal history of nicotine dependence
CPT/HCPCS: 36415; 36430; 36591; 77014; 77336; 77386; 80053; 80503; 85007; 85025; 86850; 86900; 86920; 88184; 88185; 96365; 96367; 96372; 96374; 96375; 96413; 96417; 99213; 99214; 99215; J1100; J1200; J1940; J2469; J3490; J7030; J7040; J7050; J9045; J9267; P9040; Q5101

== ENCOUNTER 2022-05-26 08:00 | Oncology outpatient (recurring) (ONCR) | payer OTHER, SELFPAY ==
[2022-04-30 08:58] VITALS: BP 112/76; PULSE 99; RESP 18; TEMP 36.3; O2SAT 98
[2022-05-01 09:00] LABS: Basophils % 0.3 %; Eosinophils # 0.1 10^3/uL (0.0-0.8); Eosinophils % 0.8 %; Hematocrit 32.1 % (37.0-47.0); Hemoglobin 10.7 g/dL (11.5-15.3); Lymphocytes # 0.4 10^3/uL (0.8-4.8); Lymphocytes % 3.6 %; Mean Corpuscular HGB Conc 33.3 g/dL (30.0-36.0); Mean Corpuscular Hemoglobin 29.2 pg (28.0-34.0); Mean Corpuscular Volume 87.5 fl (81-99); Mean Platelet Volume 8.6 fL (7.4-10.4); Monocytes # 1.1 10^3/uL (0.2-0.9); Monocytes % 10.1 %; Neutrophils # 7.13 10^3/uL (1.8-7.7); Neutrophils % 65.1 %; Nucleated Red Blood Cells % 0 %; Platelet Count 375 10^3/cmm (130-400); Red Blood Count 3.67 10^6/uL (4.1-5.3); Red Cell Distribution Width 17.3 % (12.1-15.1); White Blood Count 10.9 10^3/uL (4.0-10.0)
[2022-05-01 09:43] LABS: Slide Review Slide Review Perform
--- NOTE | 2022-05-05 08:58 | N.ONRD TS_ITS ---
Radiation OncologyTreatment Summary Patient Name: Des Tucker Date of : 1955 Date of Service: 05/05/2022 Attending Physician: Blaine Malagon M.D. Des Tucker has completed definitive thoracic radiotherapy for the management of a clinical stage IIIC (T3N3) non-small cell lung cancer. The patient was evaluated at the [facility]'s Emergency Department in January for persistent fever and malaise. A chest radiograph ordered on February 19, 2022 revealed a large, consolidated density in the left upper lobe of the lung. A thoracoabdominopelvic CT scan demonstrated a wedge-shaped left upper lobe consolidation with narrowing of the left upper lobe bronchus. Lymphadenopathy was difficult to assess without the administration of contrast material. She was admitted for sepsis related to post-obstructive pneumonia. No growth was identified from the obtained blood cultures. Broad-spectrum antibiotics were prescribed. A bronchoscopy with endobronchial ultrasound-guided biopsy performed by April Mann M.D. on February 20, 2022. Intra-operative findings reported narrowing of the segmental bronchi in the left upper lobe. Specimens obtained from the left hilar mass and pulmonary lymph node station 7 diagnosed a poorly- differentiated adenocarcinoma. She was discharged on hospital day 4. An MRI of the brain completed on March 03, 2022 did not characterize intracranial lesions. A PET scan obtained on March 07, 2022 confirmed the left upper lobe hypermetabolic activity measuring 4.4 cm x 6.2 cm (SUV of 10.6), left hilar lymphadenopathy (SUV 8.5), left princess-bronchial lymphadenopathy, left paratracheal lymphadenopathy, and bilateral thoracic inlet adenopathy. No metastatic disease was reported. Thoracic radiation therapy was delivered between the dates of March 24, 2022 through May 05, 2022. A prescribed dose of 60 Gy was delivered in 30 fractions encompassing 43 elapsed days. The left upper-lobe mass and mediastinal lymphadenopathy were treated utilizing an intensity modulated radiotherapy plan with a step and shoot treatment technique. The plan required seven gantry angles (30???, 65???, 100???, 145???, 180???, 320???, and 355???) replicating an arc. The collimator rotation 0???. The field sizes spanned between 13.8 cm x 15 cm to 17.5 cm x 14.6 cm. The SSDs measured a minimum of 86.5 cm to a maximum of 91.4 cm. The ports delivered 146 MU, 216 MU, 179 MU, 104 MU, 194 MU, 148 MU, and 164 MU corresponding to the gantry angles described. All treatments were performed with the MeriTaleem linear accelerator and an isocentric technique. The dose was calculated by Anisotropic Analytic Algorithm. A photon energy of 6 MV was prescribed with the plan normalized to deliver 100% of the prescription dose to 95% of the planning target volume. She was prescribed Carboplatin (AUC 2) and Paclitaxel (50 mg/m???) weekly during radiotherapy under the supervision of Sylvester Dyer M.D (March 25 through April 15). The plan was designed and approved by the [facility] physician. Signed by: Dr. Blaine Malagon 05/05/2022 9:32:00 AM
--- NOTE | 2022-05-05 09:04 | ONCRAD TMN_ITS ---
Radiation Oncology Treatment Management Note Patient Name: Des Tucker Date of : 1955 Date of Service: 05/05/2022 Attending Physician: Blaine Malagon M.D. 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 The patient was evaluated at the [facility]'s Emergency Department in January for persistent fever and malaise. A chest radiograph ordered on February 19, 2022 revealed a large, consolidated density in the left upper lobe of the lung. A thoracoabdominopelvic CT scan demonstrated a wedge-shaped left upper lobe consolidation with narrowing of the left upper lobe bronchus. Lymphadenopathy was difficult to assess without the administration of contrast material. She was admitted for sepsis related to post-obstructive pneumonia. No growth was identified from the obtained blood cultures. Broad-spectrum antibiotics were prescribed. A bronchoscopy with endobronchial ultrasound-guided biopsy performed by April Mann M.D. on February 20, 2022. Intra-operative findings reported narrowing of the segmental bronchi in the left upper lobe. Specimens obtained from the left hilar mass and pulmonary lymph node station 7 diagnosed a poorly- differentiated adenocarcinoma. She was discharged on hospital day 4. An MRI of the brain completed on March 03, 2022 did not characterize intracranial lesions. A PET scan obtained on March 07, 2022 confirmed the left upper lobe hypermetabolic activity measuring 4.4 cm x 6.2 cm (SUV of 10.6), left hilar lymphadenopathy (SUV 8.5), left princess-bronchial lymphadenopathy, left paratracheal lymphadenopathy, and bilateral thoracic inlet adenopathy. No metastatic disease was reported. The patient has received 58 Gy of a prescribed 60 Martin with an intensity modulated radiotherapy plan utilizing a step and shoot treatment technique. She has been prescribed carboplatin (AUC 2) and paclitaxel (50 mg/m???) weekly during therapy. Upon review of systems, she reported fatigue. On physical examination, the patient weighed 121 lbs. Her temperature was 96.5 ???F and the blood pressure was 109/74 mmHg. The pulse was 109 bpm and her respiratory rate was 18. Oxygen saturation while breathing room air was 96%. Bronchovesicular breath sounds were auscultated. Thoracic radiotherapy completed today. Signed by: Dr. Blaine Malagon 05/05/2022 9:02:37 AM
[2022-05-05 09:35] LABS: Basophils # 0.1 10^3/uL (0.0-0.1); Basophils % 0.7 %; Eosinophils % 0.3 %; Hematocrit 32.6 % (37.0-47.0); Hemoglobin 10.8 g/dL (11.5-15.3); Lymphocytes # 0.6 10^3/uL (0.8-4.8); Lymphocytes % 8.2 %; Mean Corpuscular HGB Conc 33.1 g/dL (30.0-36.0); Mean Corpuscular Volume 87.6 fl (81-99); Mean Platelet Volume 8.4 fL (7.4-10.4); Monocytes # 1.1 10^3/uL (0.2-0.9); Monocytes % 16.1 %; Neutrophils # 4.72 10^3/uL (1.8-7.7); Neutrophils % 66.4 %; Nucleated Red Blood Cells % 0 %; Platelet Count 404 10^3/cmm (130-400); Red Blood Count 3.72 10^6/uL (4.1-5.3); Red Cell Distribution Width 17.7 % (12.1-15.1); White Blood Count 7.1 10^3/uL (4.0-10.0)
[2022-05-05 10:08] LABS: Slide Review Slide Review Perform
[2022-05-05 10:20] LABS: Alanine Aminotransferase 28 U/L (0-33); Albumin Level 3.4 g/dL (3.5-5.2); Alkaline Phosphatase 95 U/L (35-105); Anion Gap 14.9 (5-19); Aspartate Amino Transferase 27 U/L (0-32); Blood Urea Nitrogen 8 mg/dL (8-23); Calcium 9.1 mg/dL (8.5-10.5); Carbon Dioxide 25 mmol/L (22-29); Chloride 103 mmol/L (98-107); Globulin 2.8 g/dL (1.3-4.6); Glomerular Filtration Rate 160.2 mL/min (90-130); Glucose 111 mg/dL (65-115); Osmolality Calculated 287 mOsm/kg (285-295); Potassium 3.9 mmol/L (3.5-5.1); Sodium 139 mmol/L (136-145); Total Bilirubin 0.3 mg/dL (0.15-1.2); Total Protein 6.2 g/dL (6.6-8.7)
[2022-05-22 08:16] LABS: Basophils # 0.1 10^3/uL (0.0-0.1); Basophils % 1.7 %; Eosinophils # 0.2 10^3/uL (0.0-0.8); Eosinophils % 2.9 %; Hematocrit 33.3 % (37.0-47.0); Hemoglobin 10.9 g/dL (11.5-15.3); Lymphocytes # 0.7 10^3/uL (0.8-4.8); Lymphocytes % 12.6 %; Mean Corpuscular HGB Conc 32.7 g/dL (30.0-36.0); Mean Corpuscular Hemoglobin 29.3 pg (28.0-34.0); Mean Corpuscular Volume 89.5 fl (81-99); Mean Platelet Volume 8.9 fL (7.4-10.4); Monocytes # 0.7 10^3/uL (0.2-0.9); Neutrophils # 3.57 10^3/uL (1.8-7.7); Neutrophils % 68.4 %; Nucleated Red Blood Cells % 0 %; Platelet Count 207 10^3/cmm (130-400); Red Blood Count 3.72 10^6/uL (4.1-5.3); Red Cell Distribution Width 17.9 % (12.1-15.1); White Blood Count 5.2 10^3/uL (4.0-10.0)
[2022-05-22 08:42] LABS: Alanine Aminotransferase 19 U/L (0-33); Albumin Level 3.4 g/dL (3.5-5.2); Alkaline Phosphatase 71 U/L (35-105); Anion Gap 16.1 (5-19); Aspartate Amino Transferase 22 U/L (0-32); Blood Urea Nitrogen 10 mg/dL (8-23); Calcium 9.1 mg/dL (8.5-10.5); Carbon Dioxide 25 mmol/L (22-29); Chloride 103 mmol/L (98-107); Globulin 3.6 g/dL (1.3-4.6); Glomerular Filtration Rate 100.3 mL/min (90-130); Glucose 110 mg/dL (65-115); Osmolality Calculated 290 mOsm/kg (285-295); Potassium 4.1 mmol/L (3.5-5.1); Sodium 140 mmol/L (136-145); Thyroid Stimulating Hormone 0.61 uIU/mL (0.27-4.20); Total Bilirubin 0.4 mg/dL (0.15-1.2)
--- NOTE | 2022-05-26 08:00 | CT_ITS ---
WS: [id number] CT CHEST WITH INTRAVENOUS CONTRAST HISTORY: lung cancer restaging TECHNIQUE: Contiguous 5 mm axial imaging performed on the thorax. Coronal and sagittal reformats are submitted. All CT scans at [facility] use at least one of these dose optimization techniques: automated exposure control; mA and/or kV adjustment per patient size (includes targeted exams where dose is matched to clinical indication); or iterative reconstruction. CONTRAST: Omnipaque 350; 95 mL IV. DLP: 551.24 mGy.cm COMPARISON: Prior CT 02/19/[address] 03/07/2022 Lungs and central airway: Large area of consolidation in the LEFT upper lobe. There is a large mass t hat begins at the apex and extends inferiorly over length of 8.4 cm. Mass measures transversely by 7. 4 and enter posterior by 6.9 cm. Variable density within this mass. RIGHT upper lobe bronchial obstru ction by mass encasing the bronchial tree. There is also encasement of the LEFT pulmonary artery. Mas s extends to abut a small portion of the LEFT subclavian artery. Mass is very similar in configuratio n to the PET/CT of 03/07/2022. Otherwise severe bullous emphysema. Focal area of scarring in the RIGHT upper lobe. Mild interstitial thickening prominence extends into the lingula and in the medial LEFT l ower lobe. Pleura: New small layering LEFT pleural effusion. Heart and pericardium: Mild cardiomegaly. Mediastinum and leticia: Soft tissue encasing the LEFT hilar region and extending into the AP window. Th ere are small lymph nodes present measuring up to 1 cm in diameter. Similar to the prior PET/CT. The lymph nodes that were positive on the PET/CT in the thoracic inlets are not visualized by CT. There i s mild esophageal wall thickening and edema which may be posttreatment related. Vessels: Mild atherosclerosis aorta. Normal size pulmonary artery. Chest wall and lower neck: RIGHT subclavian Port-A-Cath. Upper abdomen: No metastatic lesions within the visualized liver. Normal portal vein. No adrenal mass . Cortical 1.2 cm cyst LEFT kidney. Small hiatal hernia. Osseous structures: No destructive process. CT/CT chest w con* [id number] IMPRESSION: 1. PET/CT positive LEFT apical mass with associated atelectasis has not change d significantly in size. Measures 7.4 x 6.9 cm and extends over a length of 8.4 cm. 2. New small LEFT pleural effusion. 3. LEFT hilar and paratracheal lymph nodes are unchanged with the largest antonio uring 10 mm at the LEFT hilum. Some of the PET/CT positive lymph nodes at the t horacic inlet are not identified with certainty. 4. New esophageal wall thickening at the level of the LEFT upper lobe mass may be posttreatment related. 5. Chronic emphysema.
[2022-05-26] MEDS: iohexol 350 mg/mL 100 mL Btl IV (08:03)
== END 2022-05-29 23:59 | disposition home or self-care (01) ==
LOC: ONCMED 05-28 06:22
PROVIDERS: Absent Provider Internal Medicine Medical Oncology; PCP Nurse Practitioner; Visit Provider Radiology Radiation Oncology
DX: C34.12 Malignant neoplasm of upper lobe, left bronchus or lung (principal); Z87.891 Personal history of nicotine dependence
CPT/HCPCS: 36415; 36591; 71260; 77014; 77336; 77386; 80053; 84443; 85025; 96372; 99214; Q5101

== ENCOUNTER 2022-06-18 11:30 | Oncology outpatient (recurring) (ONCR) | payer OTHER, SELFPAY ==
--- NOTE | 2022-06-05 08:26 | ONCRAD EPV_ITS ---
Radiation Oncology Follow-Up Note Patient Name: Des Tucker Date of : 1955 Date of Service: 06/05/2022 Attending Physician: Blaine Malagon M.D. Yvonne Tucker returned to my office this morning for a routinely scheduled follow-up appointment. She completed thoracic radiotherapy in April for the management of a clinical stage IIIC (T3N3) non-small cell lung cancer. The patient was evaluated at the [facility]'s Emergency Department in January for persistent fever and malaise. A chest radiograph ordered on February 19, 2022 revealed a large, consolidated density in the left upper lobe of the lung. A thoracoabdominopelvic CT scan demonstrated a wedge-shaped left upper lobe consolidation with narrowing of the left upper lobe bronchus. Lymphadenopathy was difficult to assess without the administration of contrast material. She was admitted for sepsis related to post-obstructive pneumonia. No growth was identified from the obtained blood cultures. Broad-spectrum antibiotics were prescribed. A bronchoscopy with endobronchial ultrasound-guided biopsy performed by April Mann M.D. on February 20, 2022. Intra-operative findings reported narrowing of the segmental bronchi in the left upper lobe. Specimens obtained from the left hilar mass and pulmonary lymph node station 7 diagnosed a poorly- differentiated adenocarcinoma. She was discharged on hospital day 4. An MRI of the brain completed on March 03, 2022 did not characterize intracranial lesions. A PET scan obtained on March 07, 2022 confirmed the left upper lobe hypermetabolic activity measuring 4.4 cm x 6.2 cm (SUV of 10.6), left hilar lymphadenopathy (SUV 8.5), left princess-bronchial lymphadenopathy, left paratracheal lymphadenopathy, and bilateral thoracic inlet adenopathy. No metastatic disease was reported. Thoracic radiation therapy was delivered between the dates of March 24, 2022 through May 05, 2022. A prescribed dose of 60 Gy was delivered in 30 fractions encompassing 43 elapsed days. She was prescribed Carboplatin (AUC 2) and Paclitaxel (50 mg/m???) weekly during radiotherapy under the supervision of Sylvester Dyer M.D (March 25 through April 15). On review of systems, she described On physical examination, she weighed 122 lbs. The temperature was 97.8???F and her blood pressure was 105/65 mmHg. The pulse was 86 bpm and her respiratory rate was 16 breaths per minute. The oxygen saturation while breathing ambient air was 99%. In summary, Ms. Tucker returned for a routine post-radiotherapy follow-up. There were no significant sequelae from radiotherapy. A re-staging CT scan has been ordered prior to beginning maintenance immunotherapy. She will continue follow-up as scheduled with her medical oncologist. Signed by: Dr. Blaine Malagon 06/05/2022 8:25:30 AM
[2022-06-18 12:04] LABS: Basophils # 0.1 10^3/uL (0.0-0.1); Basophils % 1.1 %; Eosinophils # 0.1 10^3/uL (0.0-0.8); Eosinophils % 1.8 %; Hematocrit 33.8 % (37.0-47.0); Hemoglobin 10.9 g/dL (11.5-15.3); Lymphocytes # 0.8 10^3/uL (0.8-4.8); Mean Corpuscular HGB Conc 32.2 g/dL (30.0-36.0); Mean Corpuscular Hemoglobin 29.2 pg (28.0-34.0); Mean Corpuscular Volume 90.6 fl (81-99); Mean Platelet Volume 8.8 fL (7.4-10.4); Monocytes # 0.5 10^3/uL (0.2-0.9); Neutrophils # 4.03 10^3/uL (1.8-7.7); Neutrophils % 72.9 %; Nucleated Red Blood Cells % 0 %; Platelet Count 286 10^3/cmm (130-400); Red Blood Count 3.73 10^6/uL (4.1-5.3); Red Cell Distribution Width 14.8 % (12.1-15.1); White Blood Count 5.5 10^3/uL (4.0-10.0)
[2022-06-18] MEDS: sodium chloride 0.9% 250 ML 100 ML IV (12:32)
[2022-06-18] MEDS: durvalumab 1,500 MG in sodium chloride 0.9% 250 ML 280 MG IV (12:32)
[2022-06-18 12:43] LABS: Alanine Aminotransferase 16 U/L (0-33); Albumin Level 3.9 g/dL (3.5-5.2); Alkaline Phosphatase 75 U/L (35-105); Anion Gap 15.8 (5-19); Aspartate Amino Transferase 22 U/L (0-32); Blood Urea Nitrogen 10 mg/dL (8-23); Calcium 9.7 mg/dL (8.5-10.5); Carbon Dioxide 25 mmol/L (22-29); Chloride 99 mmol/L (98-107); Globulin 3.2 g/dL (1.3-4.6); Glomerular Filtration Rate 100.3 mL/min (90-130); Glucose 126 mg/dL (65-115); Hepatitis A Antibody IgM Non-Reactive (Nonreactive); Hepatitis B Core AB, Total Non-Reactive (Nonreactive); Hepatitis B Surface AB 3.5 (11.5-1000); Hepatitis B Surface Antigen Non-Reactive (Nonreactive); Hepatitis C Virus Antibody Non-Reactive (Nonreactive); Immunoglobulin IGG 1091 mg/dL (700-1600); Osmolality Calculated 283 mOsm/kg (285-295); Potassium 3.8 mmol/L (3.5-5.1); Sodium 136 mmol/L (136-145); Thyroid Stimulating Hormone 2.13 uIU/mL (0.27-4.20); Total Bilirubin 0.4 mg/dL (0.15-1.2); Total Protein 7.1 g/dL (6.6-8.7)
[2022-06-18 13:45] VITALS: BP 120/69; PULSE 94; RESP 16; TEMP 36.2; O2SAT 93
== END 2022-06-29 23:59 | disposition home or self-care (01) ==
PROVIDERS: Absent Provider Internal Medicine Medical Oncology; PCP Nurse Practitioner; Visit Provider Radiology Radiation Oncology
DX: C34.12 Malignant neoplasm of upper lobe, left bronchus or lung (principal); Z51.12 Encounter for antineoplastic immunotherapy; Z01.89 Encounter for other specified special examinations
CPT/HCPCS: 80053; 82784; 84443; 85025; 86705; 86706; 86709; 86803; 87340; 96413; J7050; J9173

== ENCOUNTER 2022-07-15 11:23 | Oncology outpatient (recurring) (ONCR) | payer OTHER, SELFPAY ==
[2022-07-15 12:03] VITALS: BMI 19.7
[2022-07-15 12:09] LABS: Basophils # 0.1 10^3/uL (0.0-0.1); Basophils % 1.1 %; Eosinophils # 0.2 10^3/uL (0.0-0.8); Eosinophils % 3.5 %; Hematocrit 33.3 % (37.0-47.0); Hemoglobin 11.1 g/dL (11.5-15.3); Lymphocytes # 0.8 10^3/uL (0.8-4.8); Lymphocytes % 18.2 %; Mean Corpuscular HGB Conc 33.3 g/dL (30.0-36.0); Mean Corpuscular Hemoglobin 29.8 pg (28.0-34.0); Mean Corpuscular Volume 89.3 fl (81-99); Mean Platelet Volume 8.8 fL (7.4-10.4); Monocytes # 0.6 10^3/uL (0.2-0.9); Monocytes % 13.8 %; Neutrophils # 2.88 10^3/uL (1.8-7.7); Neutrophils % 63.2 %; Nucleated Red Blood Cells % 0 %; Platelet Count 238 10^3/cmm (130-400); Red Blood Count 3.73 10^6/uL (4.1-5.3); Red Cell Distribution Width 12.9 % (12.1-15.1); White Blood Count 4.6 10^3/uL (4.0-10.0)
[2022-07-15 12:38] LABS: Alanine Aminotransferase 16 U/L (0-33); Albumin Level 3.9 g/dL (3.5-5.2); Alkaline Phosphatase 80 U/L (35-105); Aspartate Amino Transferase 24 U/L (0-32); Blood Urea Nitrogen 11 mg/dL (8-23); Calcium 9.6 mg/dL (8.5-10.5); Carbon Dioxide 27 mmol/L (22-29); Chloride 100 mmol/L (98-107); Glomerular Filtration Rate 123.8 mL/min (90-130); Glucose 90 mg/dL (65-115); Osmolality Calculated 285 mOsm/kg (285-295); Sodium 138 mmol/L (136-145); Thyroid Stimulating Hormone 0.88 uIU/mL (0.27-4.20); Total Bilirubin 0.4 mg/dL (0.15-1.2); Total Protein 6.9 g/dL (6.6-8.7)
[2022-07-15] MEDS: sodium chloride 0.9% 250 ML 50 ML IV (14:05)
[2022-07-15] MEDS: durvalumab 1,500 MG in sodium chloride 0.9% 250 ML 280 MG IV (14:08)
[2022-07-15 15:27] VITALS: BP 121/79; PULSE 90; RESP 16; TEMP 36.3; O2SAT 96
== END 2022-07-16 10:40 | disposition home or self-care (01) ==
PROVIDERS: Absent Provider Internal Medicine Medical Oncology; PCP Nurse Practitioner; Visit Provider Radiology Radiation Oncology
DX: Z51.12 Encounter for antineoplastic immunotherapy (principal); C34.12 Malignant neoplasm of upper lobe, left bronchus or lung; C77.8 Secondary and unspecified malignant neoplasm of lymph nodes of multiple regions; K20.90 Esophagitis, unspecified without bleeding; Z79.899 Other long term (current) drug therapy; Z92.3 Personal history of irradiation; Z87.891 Personal history of nicotine dependence
CPT/HCPCS: 80053; 84443; 85025; 96413; 99213; 99214; J7050; J9173

== ENCOUNTER 2022-07-20 09:21 | Outpatient (CLI) | payer OTHER, SELFPAY ==
--- NOTE | 2022-07-20 09:29 | MM_ITS ---
WS: [id number] BILATERAL SCREENING DIGITAL TOMOSYNTHESIS MAMMOGRAM WITH CAD HISTORY: SCREENING COMPARISON: 06/03/2021, 05/31/2020 Bilateral CC and MLO views with tomosynthesis and synthetic mammography submitted. Computer aided det ection analyzed. Breast composition: The breasts are heterogeneously dense, which may obscure small masses. No suspici ous masses, microcalcifications or architectural distortion. Benign calcifications within each breast . MM/[place] [id number] IMPRESSION: BI-RADS: 2-Benign FOLLOW UP: 1 Year Follow-up
== END 2022-07-20 09:22 | disposition home or self-care (01) ==
LOC: RAD 09:22
PROVIDERS: PCP Nurse Practitioner; Visit Provider Nurse Practitioner
DX: Z12.31 Encounter for screening mammogram for malignant neoplasm of breast (principal)
CPT/HCPCS: 77063; 77067

== ENCOUNTER 2022-08-05 12:10 | Outpatient (CLI) | payer OTHER, SELFPAY ==
--- NOTE | 2022-08-05 11:00 | CT_ITS ---
WS: [id number] CT CHEST WITH INTRAVENOUS CONTRAST HISTORY: LEFT lung mass, restaging after chemotherapy and radiation. LEFT lung cancer. TECHNIQUE: Contiguous 5 mm axial imaging performed on the thorax. Coronal and sagittal reformats are submitted. All CT scans at [facility] use at least one of these dose optimization techniques: automated exposure control; mA and/or kV adjustment per patient size (includes targeted exams where dose is matched to clinical indication); or iterative reconstruction. CONTRAST: Omnipaque 350; 95 mL IV. DLP: 634.49 mGy.cm COMPARISON: 05/26/2022 Lungs and central airway: Mild volume loss LEFT thorax. Dense area of consolidation and no neoplasm a t the LEFT apex slightly decreased in size. There is less soft tissue with more air bronchograms pres ent. Mass measures 5.0 x 4.2 cm and extends over length of 5.0 cm. There is adjacent pleural thickeni ng and a small amount of adjacent pleural fluid. Mass continues to abut a small portion of the aortic arch and descending aorta. Pleural thickening and a few areas of cavitation now extending into the p osterior LEFT lower lobe with adjacent pleural fluid. This may be all post treatment related pneumoni tis. Severe centrilobular emphysema. Pleural thickening and nodularity at the RIGHT apex is stable. Pleura: Mild pleural thickening LEFT apex with a tiny amount fluid. Heart and pericardium: Normal size heart with no pericardial effusion. Mediastinum and leticai: Small LEFT hilar lymph nodes have not increased in size. These lymph nodes are stable with the largest measuring 10 mm at the LEFT hilum. Small amount of edema and esophageal wall thickening in the upper thorax. Vessels: Mild atherosclerosis aorta. Normal size pulmonary artery. Chest wall and lower neck: Right-sided Port-A-Cath. Upper abdomen: Small hiatal hernia. No adrenal mass. The visualized liver is negative. Pancreatic martha t is visualized but less than 2 mm. Osseous structures: No destructive process. CT/CT chest w con* [id number] IMPRESSION: 1. Mild decrease in size of the known LEFT upper lobe neoplasm which now measu res 5.0 x 4.2 and extends over a length of 5.0 cm. Less consolidation with incr easing interstitial thickening which is probably posttreatment related pneumoni tis. Recommend continued close follow-up to ensure continued improvement and re solution. 2. Small LEFT pleural effusion. 3. No increase in size or number of the mediastinum or hilar lymph nodes. 4. Severe emphysema. 5. No adrenal mass. 6. No change in the esophageal wall thickening which may be post treatment rel ated esophageal edema.
[2022-08-05] MEDS: iohexol 350 mg/mL 500 mL Btl (per mL) IV (12:37)
== END 2022-08-05 12:11 | disposition home or self-care (01) ==
LOC: RAD 12:11
PROVIDERS: PCP Nurse Practitioner; Visit Provider Internal Medicine Medical Oncology
DX: C34.12 Malignant neoplasm of upper lobe, left bronchus or lung (principal); J43.9 Emphysema, unspecified
CPT/HCPCS: 71260; Q9967

== ENCOUNTER → 2022-08-11 13:42 | Outpatient (BNVA) | payer OTHER, SELFPAY | PROVIDERS: PCP Nurse Practitioner; Visit Provider Internal Medicine Pulmonary Disease | DX: C34.12 Malignant neoplasm of upper lobe, left bronchus or lung (principal); J43.9 Emphysema, unspecified; J18.9 Pneumonia, unspecified organism | CPT/HCPCS: 99214 ==

== ENCOUNTER 2022-08-12 08:17 | Oncology outpatient (recurring) (ONCR) | payer OTHER, SELFPAY ==
[2022-08-12 08:37] VITALS: BMI 19.8
[2022-08-12 08:44] LABS: Basophils # 0.1 10^3/uL (0.0-0.1); Basophils % 1.9 %; Eosinophils # 0.2 10^3/uL (0.0-0.8); Eosinophils % 3.7 %; Hematocrit 35.3 % (37.0-47.0); Hemoglobin 11.6 g/dL (11.5-15.3); Lymphocytes % 23.5 %; Mean Corpuscular HGB Conc 32.9 g/dL (30.0-36.0); Mean Corpuscular Hemoglobin 29.1 pg (28.0-34.0); Mean Corpuscular Volume 88.7 fl (81-99); Mean Platelet Volume 8.9 fL (7.4-10.4); Monocytes # 0.5 10^3/uL (0.2-0.9); Monocytes % 12.1 %; Neutrophils # 2.52 10^3/uL (1.8-7.7); Neutrophils % 58.6 %; Nucleated Red Blood Cells % 0 %; Platelet Count 250 10^3/cmm (130-400); Red Blood Count 3.98 10^6/uL (4.1-5.3); Red Cell Distribution Width 12.3 % (12.1-15.1); White Blood Count 4.3 10^3/uL (4.0-10.0)
[2022-08-12 09:12] LABS: Alanine Aminotransferase 19 U/L (0-33); Albumin Level 3.7 g/dL (3.5-5.2); Alkaline Phosphatase 87 U/L (35-105); Aspartate Amino Transferase 26 U/L (0-32); Blood Urea Nitrogen 13 mg/dL (8-23); Calcium 9.5 mg/dL (8.5-10.5); Carbon Dioxide 28 mmol/L (22-29); Chloride 101 mmol/L (98-107); Globulin 3.3 g/dL (1.3-4.6); Glomerular Filtration Rate 100.3 mL/min (90-130); Glucose 93 mg/dL (65-115); Osmolality Calculated 286 mOsm/kg (285-295); Sodium 138 mmol/L (136-145); Total Bilirubin 0.2 mg/dL (0.15-1.2)
[2022-08-12] MEDS: sodium chloride 0.9% 250 ML 75 ML IV (10:09)
[2022-08-12] MEDS: durvalumab 1,500 MG in sodium chloride 0.9% 250 ML 280 MG IV (10:50)
[2022-08-12 12:05] VITALS: BP 153/112; PULSE 70; RESP 16; TEMP 36; O2SAT 96
== END 2022-08-29 23:59 | disposition home or self-care (01) ==
PROVIDERS: Absent Provider Internal Medicine Medical Oncology; PCP Nurse Practitioner; Visit Provider Radiology Radiation Oncology
DX: Z51.12 Encounter for antineoplastic immunotherapy (principal); C34.12 Malignant neoplasm of upper lobe, left bronchus or lung; C77.8 Secondary and unspecified malignant neoplasm of lymph nodes of multiple regions; Z92.21 Personal history of antineoplastic chemotherapy; Z92.3 Personal history of irradiation; Z87.891 Personal history of nicotine dependence
CPT/HCPCS: 80053; 84443; 85025; 96413; 99214; J7050; J9173

== ENCOUNTER 2022-09-09 08:17 | Oncology outpatient (recurring) (ONCR) | payer OTHER, SELFPAY ==
[2022-09-09 08:46] LABS: Basophils # 0.1 10^3/uL (0.0-0.1); Eosinophils # 0.2 10^3/uL (0.0-0.8); Hematocrit 36.2 % (37.0-47.0); Hemoglobin 12.1 g/dL (11.5-15.3); Lymphocytes % 19.3 %; Mean Corpuscular HGB Conc 33.4 g/dL (30.0-36.0); Mean Corpuscular Hemoglobin 29.2 pg (28.0-34.0); Mean Corpuscular Volume 87.2 fl (81-99); Mean Platelet Volume 8.9 fL (7.4-10.4); Monocytes # 0.6 10^3/uL (0.2-0.9); Monocytes % 11.6 %; Neutrophils # 3.23 10^3/uL (1.8-7.7); Neutrophils % 64.9 %; Nucleated Red Blood Cells % 0 %; Platelet Count 205 10^3/cmm (130-400); Red Blood Count 4.15 10^6/uL (4.1-5.3); Red Cell Distribution Width 12.8 % (12.1-15.1)
[2022-09-09 09:23] LABS: Alanine Aminotransferase 27 U/L (0-33); Albumin Level 4.1 g/dL (3.5-5.2); Alkaline Phosphatase 84 U/L (35-105); Anion Gap 11.3 (5-19); Aspartate Amino Transferase 28 U/L (0-32); Blood Urea Nitrogen 13 mg/dL (8-23); Calcium 9.2 mg/dL (8.5-10.5); Carbon Dioxide 27 mmol/L (22-29); Chloride 106 mmol/L (98-107); Globulin 2.6 g/dL (1.3-4.6); Glomerular Filtration Rate 123.8 mL/min (90-130); Glucose 90 mg/dL (65-115); Osmolality Calculated 290 mOsm/kg (285-295); Potassium 4.3 mmol/L (3.5-5.1); Sodium 140 mmol/L (136-145); Thyroid Stimulating Hormone 2.62 uIU/mL (0.27-4.20); Total Bilirubin 0.2 mg/dL (0.15-1.2); Total Protein 6.7 g/dL (6.6-8.7)
[2022-09-09] MEDS: sodium chloride 0.9% 250 ML 100 ML IV (10:00)
[2022-09-09] MEDS: durvalumab 1,500 MG in sodium chloride 0.9% 250 ML 280 MG IV (10:19)
== END 2022-09-29 23:59 | disposition home or self-care (01) ==
PROVIDERS: Absent Provider Internal Medicine Medical Oncology; PCP Nurse Practitioner; Visit Provider Radiology Radiation Oncology
DX: Z51.12 Encounter for antineoplastic immunotherapy (principal); C34.12 Malignant neoplasm of upper lobe, left bronchus or lung; C77.8 Secondary and unspecified malignant neoplasm of lymph nodes of multiple regions; Z92.21 Personal history of antineoplastic chemotherapy; Z92.3 Personal history of irradiation; Z87.891 Personal history of nicotine dependence; R53.83 Other fatigue
CPT/HCPCS: 80053; 84443; 85025; 96413; 99214; J7050; J9173

== ENCOUNTER 2022-10-05 14:48 | Outpatient (CLI) | payer OTHER, SELFPAY ==
--- NOTE | 2022-10-05 14:58 | XR_ITS ---
WS: [id number] DEXA (DUAL ENERGY X-RAY ABSORPTIOMETRY) Bone mineral density was performed using a Spare Backup machine. HISTORY: SCREENING COMPARISON: None available. Lumbar spine BMD (L1-L4): 1.038 g/cm2 T score: -1.2 Z score: 0.6 Total hip BMD: Left: 0.851 g/cm2. T score: -1.2 Z score: 0.1 Right: 0.908 g/cm2. T score: -0.8 Z score: 0.5 10 year probability of a major osteoporotic fracture is 8.4%. XR/XR DEXA axial skeleton* [id number] IMPRESSION: OSTEOPENIA based upon the WHO classification for females.
== END 2022-10-05 14:49 | disposition home or self-care (01) ==
LOC: RAD 14:52
PROVIDERS: PCP Nurse Practitioner; Visit Provider Nurse Practitioner
DX: Z13.820 Encounter for screening for osteoporosis (principal); M85.80 Other specified disorders of bone density and structure, unspecified site
CPT/HCPCS: 77080

== ENCOUNTER 2022-10-07 09:18 | Oncology outpatient (recurring) (ONCR) | payer OTHER, SELFPAY ==
[2022-10-07 09:40] VITALS: BP 108/65; PULSE 74; RESP 18; TEMP 36.4; O2SAT 98
[2022-10-07 10:04] LABS: Basophils # 0.1 10^3/uL (0.0-0.1); Basophils % 1.4 %; Eosinophils # 0.1 10^3/uL (0.0-0.8); Eosinophils % 2.1 %; Hematocrit 38.2 % (37.0-47.0); Hemoglobin 12.7 g/dL (11.5-15.3); Lymphocytes # 1.3 10^3/uL (0.8-4.8); Mean Corpuscular HGB Conc 33.2 g/dL (30.0-36.0); Mean Corpuscular Hemoglobin 29.1 pg (28.0-34.0); Mean Corpuscular Volume 87.4 fl (81-99); Mean Platelet Volume 9.1 fL (7.4-10.4); Monocytes # 0.6 10^3/uL (0.2-0.9); Monocytes % 11.3 %; Neutrophils # 2.81 10^3/uL (1.8-7.7); Nucleated Red Blood Cells % 0 %; Platelet Count 221 10^3/cmm (130-400); Red Blood Count 4.37 10^6/uL (4.1-5.3); Red Cell Distribution Width 13.1 % (12.1-15.1); White Blood Count 4.9 10^3/uL (4.0-10.0)
[2022-10-07 10:37] LABS: Alanine Aminotransferase 20 U/L (0-33); Albumin Level 4.4 g/dL (3.5-5.2); Alkaline Phosphatase 89 U/L (35-105); Aspartate Amino Transferase 31 U/L (0-32); Blood Urea Nitrogen 18 mg/dL (8-23); Calcium 9.3 mg/dL (8.5-10.5); Carbon Dioxide 26 mmol/L (22-29); Chloride 101 mmol/L (98-107); Globulin 2.6 g/dL (1.3-4.6); Glomerular Filtration Rate 100.3 mL/min (90-130); Glucose 101 mg/dL (65-115); Osmolality Calculated 286 mOsm/kg (285-295); Sodium 137 mmol/L (136-145); Thyroid Stimulating Hormone 3.21 uIU/mL (0.27-4.20); Total Bilirubin 0.5 mg/dL (0.15-1.2)
[2022-10-07] MEDS: durvalumab 1,500 MG in sodium chloride 0.9% 250 ML 280 MG IV (12:02)
[2022-10-07 13:20] VITALS: BP 96/55; PULSE 89; RESP 18; TEMP 36.4; O2SAT 99
== END 2022-10-27 23:59 | disposition home or self-care (01) ==
PROVIDERS: Absent Provider Internal Medicine Medical Oncology; PCP Nurse Practitioner; Visit Provider Radiology Radiation Oncology
DX: Z51.12 Encounter for antineoplastic immunotherapy (principal); C34.12 Malignant neoplasm of upper lobe, left bronchus or lung; Z92.3 Personal history of irradiation; Z87.891 Personal history of nicotine dependence; Z79.899 Other long term (current) drug therapy; R53.83 Other fatigue
CPT/HCPCS: 80053; 84443; 85025; 96409; 99214; J7050; J9173

== ENCOUNTER 2022-11-04 08:48 | Oncology outpatient (recurring) (ONCR) | payer OTHER, SELFPAY ==
[2022-11-04 09:15] LABS: Basophils # 0.1 10^3/uL (0.0-0.1); Basophils % 1.4 %; Eosinophils # 0.1 10^3/uL (0.0-0.8); Eosinophils % 2.6 %; Hematocrit 36.5 % (37.0-47.0); Hemoglobin 12.3 g/dL (11.5-15.3); Lymphocytes # 1.1 10^3/uL (0.8-4.8); Lymphocytes % 22.8 %; Mean Corpuscular HGB Conc 33.7 g/dL (30.0-36.0); Mean Corpuscular Hemoglobin 29.7 pg (28.0-34.0); Mean Corpuscular Volume 88.2 fl (81-99); Mean Platelet Volume 8.6 fL (7.4-10.4); Monocytes # 0.6 10^3/uL (0.2-0.9); Monocytes % 11.2 %; Neutrophils # 3.09 10^3/uL (1.8-7.7); Neutrophils % 61.8 %; Nucleated Red Blood Cells % 0 %; Platelet Count 219 10^3/cmm (130-400); Red Blood Count 4.14 10^6/uL (4.1-5.3); Red Cell Distribution Width 13.3 % (12.1-15.1)
[2022-11-04 09:40] LABS: Alanine Aminotransferase 21 U/L (0-33); Alkaline Phosphatase 78 U/L (35-105); Anion Gap 13.4 (5-19); Aspartate Amino Transferase 28 U/L (0-32); Blood Urea Nitrogen 14 mg/dL (8-23); Calcium 9.2 mg/dL (8.5-10.5); Carbon Dioxide 26 mmol/L (22-29); Chloride 103 mmol/L (98-107); Globulin 2.7 g/dL (1.3-4.6); Glucose 97 mg/dL (65-115); Osmolality Calculated 286 mOsm/kg (285-295); Potassium 4.4 mmol/L (3.5-5.1); Sodium 138 mmol/L (136-145); Thyroid Stimulating Hormone 4.17 uIU/mL (0.27-4.20); Total Bilirubin 0.4 mg/dL (0.15-1.2); Total Protein 6.7 g/dL (6.6-8.7)
[2022-11-04] MEDS: sodium chloride 0.9% 250 ML 75 ML IV (11:16)
[2022-11-04] MEDS: durvalumab 1,500 MG in sodium chloride 0.9% 250 ML 280 MG IV (12:22)
[2022-11-04 13:37] VITALS: BP 115/61; PULSE 91; RESP 16; TEMP 36.4; O2SAT 97
== END 2022-11-27 23:59 | disposition home or self-care (01) ==
PROVIDERS: Nurse Practitioner; Absent Provider Internal Medicine Medical Oncology; PCP Nurse Practitioner; Visit Provider Radiology Radiation Oncology
DX: Z51.12 Encounter for antineoplastic immunotherapy (principal); C34.12 Malignant neoplasm of upper lobe, left bronchus or lung; C77.8 Secondary and unspecified malignant neoplasm of lymph nodes of multiple regions; Z79.899 Other long term (current) drug therapy; Z87.891 Personal history of nicotine dependence
CPT/HCPCS: 80053; 84443; 85025; 96361; 96413; 99214; J7050; J9173

== ENCOUNTER 2022-11-16 06:05 | Outpatient (CLI) | payer OTHER, SELFPAY ==
--- NOTE | 2022-11-16 06:30 | CTR_ITS ---
PROCEDURE INFORMATION: Exam: CT Chest With Contrast; Diagnostic Exam date and time: 11/16/2022 6:34 AM Age: 67 years old Clinical indication: Condition or disease; Lung condition and disease; Cancer of the lung; Bilateral; Unspecified; Follow-up oncological assessment; Prior surgery; Surgery type: Port; Additional info: Lung cancer TECHNIQUE: Imaging protocol: Diagnostic computed tomography of the chest with contrast. Radiation optimization: All CT scans at this facility use at least one of these dose optimization techniques: automated exposure control; mA and/or kV adjustment per patient size (includes targeted exams where dose is matched to clinical indication); or iterative reconstruction. Contrast material: OMNI 350; Contrast volume: 95 ml; Contrast route: INTRAVENOUS (IV); REPORTING DATA: Count of CT and Cardiac NM exams in prior 12 months: This patient has received 5 known CTs and 0 known cardiac nuclear medicine studies in the 12 months prior to the current study. COMPARISON: 1. CT chest w con* [id number] 08/05/2022 12:[address] chest w con* [id number] 05/26/2022 7:54 AM RADIATION DOSE METRICS: Total DLP (mGy-cm): 176.28 FINDINGS: Tubes, catheters and devices: There is a right chest port with the line tip appropriately positioned in the lower SVC near the cavoatrial junction. Lungs: There is near complete opacification and volume loss in the left upper and lower lobes associated with marked pulmonary parenchymal architectural distortion. A discrete mass cannot be measured here. The degree of atelectasis and architectural distortion is progressive since 08/05/2022. There is ill-defined soft tissue density in the posterior subpleural portion of the left apex which is morphologically different than on 08/05/2022. Direct comparison is not possible. Accurate measurement of this abnormality is not possible. There is severe upper lung predominant centrilobular emphysema. There is right apical subpleural scarring. No pulmonary mass or consolidation on the right. Pleural spaces: There is no pleural effusion or pneumothorax. Heart: Heart size is normal. There is no pericardial effusion. Lymph nodes: No enlarged mediastinal or hilar lymph nodes are measurable. Vasculature: There is mild aortic atherosclerotic disease. Central pulmonary arteries are unremarkable. Adrenal glands: No adrenal nodules. Intraperitoneal space: Visible structures in the upper abdomen are unremarkable. Bones/joints: Bones are unremarkable. Soft tissues: The extrathoracic soft tissues are unremarkable. CT/CT chest w con* [id number] IMPRESSION: Progressive pulmonary parenchymal architectural distortion and volume loss in the left upper and lower lobes since 08/05/2022, consistent with changes related to radiation and/or surgery. There is no measurable mass. The extent of soft tissue density at the apex is roughly similar to 08/05/2022 but direct comparison or accurate measurement is not possible.
[2022-11-16] MEDS: iohexol 350 mg/mL 500 mL Btl (per mL) IV (06:39)
== END 2022-11-16 06:06 | disposition home or self-care (01) ==
LOC: RAD 06:06
PROVIDERS: PCP Nurse Practitioner; Visit Provider Internal Medicine Medical Oncology
DX: C34.12 Malignant neoplasm of upper lobe, left bronchus or lung (principal)
CPT/HCPCS: 71260; Q9967

== ENCOUNTER 2022-12-02 08:49 | Oncology outpatient (recurring) (ONCR) | payer OTHER, SELFPAY ==
[2022-12-02 09:30] VITALS: BMI 21.8
[2022-12-02 09:30] LABS: Basophils # 0.1 10^3/uL (0.0-0.1); Basophils % 1.3 %; Eosinophils # 0.1 10^3/uL (0.0-0.8); Eosinophils % 1.8 %; Hematocrit 36.6 % (37.0-47.0); Hemoglobin 12.5 g/dL (11.5-15.3); Lymphocytes % 22.4 %; Mean Corpuscular HGB Conc 34.2 g/dL (30.0-36.0); Mean Corpuscular Hemoglobin 30.3 pg (28.0-34.0); Mean Corpuscular Volume 88.8 fl (81-99); Monocytes # 0.5 10^3/uL (0.2-0.9); Monocytes % 11.7 %; Neutrophils # 2.79 10^3/uL (1.8-7.7); Neutrophils % 62.6 %; Nucleated Red Blood Cells % 0 %; Platelet Count 201 10^3/cmm (130-400); Red Blood Count 4.12 10^6/uL (4.1-5.3); Red Cell Distribution Width 13.1 % (12.1-15.1); White Blood Count 4.5 10^3/uL (4.0-10.0)
[2022-12-02 09:31] VITALS: BP 103/66; PULSE 70; RESP 16; TEMP 35.9; O2SAT 97
[2022-12-02 09:59] LABS: Alanine Aminotransferase 20 U/L (0-33); Albumin Level 4.3 g/dL (3.5-5.2); Alkaline Phosphatase 89 U/L (35-105); Anion Gap 12.6 (5-19); Aspartate Amino Transferase 25 U/L (0-32); Blood Urea Nitrogen 13 mg/dL (8-23); Calcium 9.2 mg/dL (8.5-10.5); Carbon Dioxide 27 mmol/L (22-29); Chloride 104 mmol/L (98-107); Globulin 2.5 g/dL (1.3-4.6); Glomerular Filtration Rate 123.8 mL/min (90-130); Glucose 90 mg/dL (65-115); Osmolality Calculated 288 mOsm/kg (285-295); Potassium 4.6 mmol/L (3.5-5.1); Sodium 139 mmol/L (136-145); Thyroid Stimulating Hormone 5.52 uIU/mL (0.27-4.20); Total Bilirubin 0.5 mg/dL (0.15-1.2); Total Protein 6.8 g/dL (6.6-8.7)
[2022-12-02] MEDS: sodium chloride 0.9% 250 ML 75 ML IV (10:47)
[2022-12-02] MEDS: durvalumab 1,500 MG in sodium chloride 0.9% 250 ML 280 MG IV (11:10)
[2022-12-02 12:23] VITALS: BP 107/68; PULSE 68; RESP 18; TEMP 36.3; O2SAT 97
== END 2022-12-10 16:52 | disposition home or self-care (01) ==
PROVIDERS: Nurse Practitioner; Absent Provider Internal Medicine Medical Oncology; PCP Nurse Practitioner; Visit Provider Radiology Radiation Oncology
DX: Z51.12 Encounter for antineoplastic immunotherapy (principal); C34.12 Malignant neoplasm of upper lobe, left bronchus or lung; C77.8 Secondary and unspecified malignant neoplasm of lymph nodes of multiple regions; Z79.899 Other long term (current) drug therapy; Z87.891 Personal history of nicotine dependence; E03.9 Hypothyroidism, unspecified; G47.00 Insomnia, unspecified
CPT/HCPCS: 80053; 84443; 85025; 96413; 99214; J7050; J9173

== ENCOUNTER 2022-12-30 08:49 | Oncology outpatient (recurring) (ONCR) | payer OTHER, SELFPAY ==
[2022-12-30 09:19] VITALS: BP 129/77; PULSE 61; TEMP 36.8; O2SAT 98
[2022-12-30 09:24] LABS: Basophils # 0.1 10^3/uL (0.0-0.1); Basophils % 1.6 %; Eosinophils # 0.2 10^3/uL (0.0-0.8); Eosinophils % 3.8 %; Hemoglobin 12.7 g/dL (11.5-15.3); Lymphocytes # 1.5 10^3/uL (0.8-4.8); Lymphocytes % 29.4 %; Mean Corpuscular HGB Conc 34.3 g/dL (30.0-36.0); Mean Corpuscular Hemoglobin 30.5 pg (28.0-34.0); Mean Corpuscular Volume 88.9 fl (81-99); Mean Platelet Volume 8.8 fL (7.4-10.4); Monocytes # 0.6 10^3/uL (0.2-0.9); Monocytes % 11.1 %; Neutrophils # 2.72 10^3/uL (1.8-7.7); Neutrophils % 53.9 %; Nucleated Red Blood Cells % 0 %; Platelet Count 233 10^3/cmm (130-400); Red Blood Count 4.16 10^6/uL (4.1-5.3); Red Cell Distribution Width 12.9 % (12.1-15.1)
[2022-12-30 09:56] LABS: Alanine Aminotransferase 28 U/L (0-33); Albumin Level 4.3 g/dL (3.5-5.2); Alkaline Phosphatase 95 U/L (35-105); Anion Gap 12.9 (5-19); Aspartate Amino Transferase 36 U/L (0-32); Blood Urea Nitrogen 15 mg/dL (8-23); Calcium 9.2 mg/dL (8.5-10.5); Carbon Dioxide 26 mmol/L (22-29); Chloride 104 mmol/L (98-107); Globulin 2.3 g/dL (1.3-4.6); Glomerular Filtration Rate 100.3 mL/min (90-130); Glucose 90 mg/dL (65-115); Osmolality Calculated 288 mOsm/kg (285-295); Potassium 3.9 mmol/L (3.5-5.1); Sodium 139 mmol/L (136-145); Thyroid Stimulating Hormone 7.59 uIU/mL (0.27-4.20); Total Bilirubin 0.4 mg/dL (0.15-1.2); Total Protein 6.6 g/dL (6.6-8.7)
[2022-12-30] MEDS: sodium chloride 0.9% 250 ML 75 ML IV (11:30)
[2022-12-30] MEDS: durvalumab 1,500 MG in sodium chloride 0.9% 250 ML 280 MG IV (11:52)
[2022-12-30 13:15] VITALS: BP 118/68; PULSE 73; RESP 16; TEMP 36.3; O2SAT 96
== END 2022-12-30 23:59 | disposition home or self-care (01) ==
PROVIDERS: Absent Provider Internal Medicine Medical Oncology; PCP Nurse Practitioner; Visit Provider Radiology Radiation Oncology
DX: Z51.12 Encounter for antineoplastic immunotherapy (principal); C34.12 Malignant neoplasm of upper lobe, left bronchus or lung; C77.8 Secondary and unspecified malignant neoplasm of lymph nodes of multiple regions; Z79.899 Other long term (current) drug therapy; Z87.891 Personal history of nicotine dependence; E03.2 Hypothyroidism due to medicaments and other exogenous substances; T45.1X5A Adverse effect of antineoplastic and immunosuppressive drugs, initial encounter; G47.00 Insomnia, unspecified
CPT/HCPCS: 80053; 84439; 84443; 85025; 96375; 96413; 99214; J1642; J7050; J9173

== ENCOUNTER 2023-02-15 08:20 | Oncology outpatient (recurring) (ONCR) | payer OTHER, SELFPAY ==
[2023-02-15 08:40] VITALS: BP 119/77; PULSE 84; RESP 18; TEMP 36.3; O2SAT 96
[2023-02-15 08:51] LABS: Basophils # 0.1 10^3/uL (0.0-0.1); Basophils % 1.5 %; Eosinophils # 0.2 10^3/uL (0.0-0.8); Eosinophils % 3.1 %; Hematocrit 37.6 % (37.0-47.0); Hemoglobin 12.6 g/dL (11.5-15.3); Lymphocytes # 1.1 10^3/uL (0.8-4.8); Lymphocytes % 21.8 %; Mean Corpuscular HGB Conc 33.5 g/dL (30.0-36.0); Mean Corpuscular Hemoglobin 29.9 pg (28.0-34.0); Mean Corpuscular Volume 89.1 fl (81-99); Mean Platelet Volume 9.2 fL (7.4-10.4); Monocytes # 0.5 10^3/uL (0.2-0.9); Monocytes % 9.4 %; Neutrophils # 3.08 10^3/uL (1.8-7.7); Nucleated Red Blood Cells % 0 %; Platelet Count 201 10^3/cmm (130-400); Red Blood Count 4.22 10^6/uL (4.1-5.3); Red Cell Distribution Width 12.5 % (12.1-15.1); White Blood Count 4.8 10^3/uL (4.0-10.0)
[2023-02-15 09:19] LABS: Alanine Aminotransferase 20 U/L (0-33); Albumin Level 4.2 g/dL (3.5-5.2); Alkaline Phosphatase 96 U/L (35-105); Anion Gap 13.3 (5-19); Aspartate Amino Transferase 26 U/L (0-32); Blood Urea Nitrogen 17 mg/dL (8-23); Calcium 8.9 mg/dL (8.5-10.5); Carbon Dioxide 25 mmol/L (22-29); Chloride 105 mmol/L (98-107); Globulin 2.5 g/dL (1.3-4.6); Glucose 119 mg/dL (65-115); Osmolality Calculated 291 mOsm/kg (285-295); Potassium 4.3 mmol/L (3.5-5.1); Sodium 139 mmol/L (136-145); Total Bilirubin 0.3 mg/dL (0.15-1.2); Total Protein 6.7 g/dL (6.6-8.7)
[2023-02-15] MEDS: durvalumab 1,500 MG in sodium chloride 0.9% 250 ML 280 MG IV (11:29)
[2023-02-15 12:34] VITALS: BP 110/70; PULSE 72; RESP 18; TEMP 36.1; O2SAT 96
== END 2023-02-15 23:59 | disposition home or self-care (01) ==
PROVIDERS: Absent Provider Internal Medicine Medical Oncology; PCP Nurse Practitioner; Visit Provider Radiology Radiation Oncology
DX: Z51.12 Encounter for antineoplastic immunotherapy (principal); C34.12 Malignant neoplasm of upper lobe, left bronchus or lung; C77.8 Secondary and unspecified malignant neoplasm of lymph nodes of multiple regions; Z79.899 Other long term (current) drug therapy; Z87.891 Personal history of nicotine dependence; Z92.3 Personal history of irradiation; Z92.21 Personal history of antineoplastic chemotherapy
CPT/HCPCS: 80053; 84443; 85025; 96375; 96413; 99215; J1642; J7050; J9173

== ENCOUNTER 2023-03-03 16:43 | Outpatient (CLI) | payer OTHER, SELFPAY ==
[2023-03-03] MEDS: iohexol 350 mg/mL 500 mL Btl (per mL) IV (16:58)
--- NOTE | 2023-03-03 17:00 | CT_ITS ---
WS: [id number] CT chest w con* [id number] HISTORY: Assess response to treatment TECHNIQUE: Axial imaging performed through the thorax. Coronal and sagittal reformats are submitted. All CT scans at [facility] use at least one of these dose optimization techniques: automated exposure control; mA and/or kV adjustment per patient size (includes targeted exams where dose is mat ched to clinical indication); or iterative reconstruction. CONTRAST: Omnipaque 350; 100 mL IV. DLP: 168.35 mGy.cm COMPARISON: 05/26/2022, 11/16/2022 and 08/05/2022 Lungs and central airway: Marked bilateral emphysema. Moderate volume loss LEFT apex and LEFT lower l obe with mild facet and mediastinal structures to the LEFT. Consolidation at the LEFT apex contains c hanges of atelectasis. Towards the very apex and seen best on the coronal view is an area of increase d soft tissue measuring 3.0 x 1.6 cm which is probably residual treated tumor. Overall there is been no progression since the prior examination. Mild pleural thickening at the RIGHT apex is also unchang ed. No additional mass or nodule within the lungs. Pleura: Very small reactive pleural effusion along the LEFT upper lobe adjacent to the atelectasis an d posttreatment lung. Heart and pericardium: Normal size heart with no pericardial effusion. Mediastinum and leticia: No mediastinum or hilar adenopathy. Vessels: Mild atherosclerosis aorta. Chest wall and lower neck: RIGHT subclavian Mediport. Upper abdomen: No adrenal mass. Osseous structures: No destructive process. CT/CT chest w con* [id number] IMPRESSION: 1. Continued slow improvement in the post treatment changes with volume loss i n the LEFT upper lobe. 2. Seen best on the coronal sequence is a more consolidated soft tissue mass a t the apex which is probably residual treated neoplasm measuring 3.0 x 1.6 cm. This is contiguous with the posttreatment atelectasis. No progression. 3. No adenopathy.
== END 2023-03-03 16:44 | disposition home or self-care (01) ==
PROVIDERS: PCP Nurse Practitioner; Visit Provider Internal Medicine Medical Oncology
DX: C34.92 Malignant neoplasm of unspecified part of left bronchus or lung (principal)
CPT/HCPCS: 71260; Q9967

== ENCOUNTER → 2023-03-04 14:41 | Outpatient (BNVA) | payer OTHER, SELFPAY | PROVIDERS: PCP Nurse Practitioner; Visit Provider Internal Medicine Pulmonary Disease | DX: C34.12 Malignant neoplasm of upper lobe, left bronchus or lung (principal); J43.9 Emphysema, unspecified; J18.9 Pneumonia, unspecified organism; Z87.891 Personal history of nicotine dependence; Z92.3 Personal history of irradiation; Z92.21 Personal history of antineoplastic chemotherapy | CPT/HCPCS: 99214 ==

== ENCOUNTER 2023-03-15 08:45 | Oncology outpatient (recurring) (ONCR) | payer OTHER, SELFPAY ==
[2023-03-15 08:58] VITALS: BP 128/78; PULSE 76; RESP 18; TEMP 36.8; O2SAT 96
[2023-03-15 09:09] LABS: Basophils # 0.1 10^3/uL (0.0-0.1); Basophils % 1.5 %; Eosinophils # 0.1 10^3/uL (0.0-0.8); Eosinophils % 2.6 %; Hematocrit 36.5 % (37.0-47.0); Hemoglobin 12.3 g/dL (11.5-15.3); Lymphocytes # 1.2 10^3/uL (0.8-4.8); Lymphocytes % 27.1 %; Mean Corpuscular HGB Conc 33.7 g/dL (30.0-36.0); Mean Corpuscular Hemoglobin 29.9 pg (28.0-34.0); Mean Corpuscular Volume 88.8 fl (81-99); Mean Platelet Volume 9.3 fL (7.4-10.4); Monocytes # 0.5 10^3/uL (0.2-0.9); Monocytes % 10.4 %; Neutrophils # 2.64 10^3/uL (1.8-7.7); Neutrophils % 58.2 %; Nucleated Red Blood Cells % 0 %; Platelet Count 205 10^3/cmm (130-400); Red Blood Count 4.11 10^6/uL (4.1-5.3); Red Cell Distribution Width 12.4 % (12.1-15.1); White Blood Count 4.5 10^3/uL (4.0-10.0)
[2023-03-15 09:45] LABS: Alanine Aminotransferase 20 U/L (0-33); Alkaline Phosphatase 90 U/L (35-105); Aspartate Amino Transferase 27 U/L (0-32); Blood Urea Nitrogen 14 mg/dL (8-23); Carbon Dioxide 27 mmol/L (22-29); Chloride 101 mmol/L (98-107); Globulin 2.6 g/dL (1.3-4.6); Glucose 108 mg/dL (65-115); Osmolality Calculated 283 mOsm/kg (285-295); Sodium 136 mmol/L (136-145); Total Bilirubin 0.5 mg/dL (0.15-1.2); Total Protein 6.6 g/dL (6.6-8.7)
[2023-03-15] MEDS: durvalumab 1,500 MG in sodium chloride 0.9% 250 ML 280 MG IV (11:28)
[2023-03-15 12:38] VITALS: BP 120/76; PULSE 83; RESP 16; TEMP 36.4; O2SAT 94
== END 2023-03-15 23:59 | disposition home or self-care (01) ==
PROVIDERS: Internal Medicine Medical Oncology; Absent Provider Internal Medicine Medical Oncology; PCP Nurse Practitioner; Visit Provider Radiology Radiation Oncology
DX: Z51.12 Encounter for antineoplastic immunotherapy (principal); C34.12 Malignant neoplasm of upper lobe, left bronchus or lung; C77.8 Secondary and unspecified malignant neoplasm of lymph nodes of multiple regions; Z79.899 Other long term (current) drug therapy; Z87.891 Personal history of nicotine dependence; E03.9 Hypothyroidism, unspecified; Z92.3 Personal history of irradiation
CPT/HCPCS: 80053; 84443; 85025; 96413; 99214; J1642; J7050; J9173

== ENCOUNTER 2023-04-12 09:56 | Oncology outpatient (recurring) (ONCR) | payer OTHER, SELFPAY ==
[2023-04-12 10:27] VITALS: BP 130/79; PULSE 62; RESP 18; TEMP 36.1; O2SAT 97
[2023-04-12 10:34] LABS: Basophils # 0.1 10^3/uL (0.0-0.1); Basophils % 1.2 %; Eosinophils # 0.2 10^3/uL (0.0-0.8); Eosinophils % 2.9 %; Hematocrit 36.6 % (37.0-47.0); Hemoglobin 12.4 g/dL (11.5-15.3); Lymphocytes # 1.3 10^3/uL (0.8-4.8); Lymphocytes % 26.2 %; Mean Corpuscular HGB Conc 33.9 g/dL (30.0-36.0); Mean Corpuscular Hemoglobin 29.5 pg (28.0-34.0); Mean Corpuscular Volume 87.1 fl (81-99); Mean Platelet Volume 9.1 fL (7.4-10.4); Monocytes # 0.6 10^3/uL (0.2-0.9); Monocytes % 11.4 %; Neutrophils # 2.97 10^3/uL (1.8-7.7); Neutrophils % 58.1 %; Nucleated Red Blood Cells % 0 %; Platelet Count 205 10^3/cmm (130-400); Red Cell Distribution Width 12.6 % (12.1-15.1); White Blood Count 5.1 10^3/uL (4.0-10.0)
[2023-04-12 11:25] LABS: Alanine Aminotransferase 24 U/L (0-33); Albumin Level 4.3 g/dL (3.5-5.2); Alkaline Phosphatase 95 U/L (35-105); Anion Gap 12.3 (5-19); Aspartate Amino Transferase 30 U/L (0-32); Blood Urea Nitrogen 18 mg/dL (8-23); Calcium 9.1 mg/dL (8.5-10.5); Carbon Dioxide 28 mmol/L (22-29); Chloride 104 mmol/L (98-107); Globulin 2.6 g/dL (1.3-4.6); Glucose 95 mg/dL (65-115); Osmolality Calculated 292 mOsm/kg (285-295); Potassium 4.3 mmol/L (3.5-5.1); Sodium 140 mmol/L (136-145); Thyroid Stimulating Hormone 4.27 uIU/mL (0.27-4.20); Total Bilirubin 0.5 mg/dL (0.15-1.2); Total Protein 6.9 g/dL (6.6-8.7)
[2023-04-12] MEDS: durvalumab 1,500 MG in sodium chloride 0.9% 250 ML 280 MG IV (12:57)
[2023-04-12 14:00] VITALS: BP 120/74; PULSE 62; RESP 17; TEMP 36.1; O2SAT 100
== END 2023-04-12 23:59 | disposition home or self-care (01) ==
PROVIDERS: Absent Provider Internal Medicine Medical Oncology; PCP Nurse Practitioner; Visit Provider Radiology Radiation Oncology
DX: Z51.12 Encounter for antineoplastic immunotherapy (principal); C34.12 Malignant neoplasm of upper lobe, left bronchus or lung; C77.8 Secondary and unspecified malignant neoplasm of lymph nodes of multiple regions; Z79.899 Other long term (current) drug therapy; Z87.891 Personal history of nicotine dependence; E03.9 Hypothyroidism, unspecified
CPT/HCPCS: 80053; 84443; 85025; 96413; 99214; J1642; J7050; J9173

== ENCOUNTER 2023-05-10 09:51 | Oncology outpatient (recurring) (ONCR) | payer OTHER, SELFPAY ==
[2023-05-10 10:16] VITALS: BMI 21.7
[2023-05-10 10:17] VITALS: BP 102/66; PULSE 75; RESP 18; TEMP 36.9; O2SAT 96
[2023-05-10 10:30] LABS: Basophils # 0.1 10^3/uL (0.0-0.1); Basophils % 1.1 %; Eosinophils # 0.1 10^3/uL (0.0-0.8); Eosinophils % 2.2 %; Hematocrit 36.4 % (36-47); Lymphocytes # 1.2 10^3/uL (0.8-4.8); Lymphocytes % 22.4 %; Mean Corpuscular HGB Conc 34.3 g/dL (30-55); Mean Corpuscular Hemoglobin 30.6 pg (27-33); Mean Corpuscular Volume 89.2 fl (85-98); Monocytes # 0.5 10^3/uL (0.2-0.9); Monocytes % 9.7 %; Neutrophils % 64.2 %; Nucleated Red Blood Cells % 0 %; Platelet Count 230 10^3/cmm (157-399); Red Blood Count 4.08 10^6/uL (3.85-5.65); Red Cell Distribution Width 12.1 % (12.1-15.1); White Blood Count 5.45 10^3/uL (3.29-11.43)
[2023-05-10 11:00] LABS: Alanine Aminotransferase 19 U/L (0-33); Albumin Level 4.4 g/dL (3.5-5.2); Alkaline Phosphatase 97 U/L (35-105); Anion Gap 13.6 (5-19); Aspartate Amino Transferase 23 U/L (0-32); Blood Urea Nitrogen 21 mg/dL (8-23); Calcium 9.3 mg/dL (8.5-10.5); Carbon Dioxide 27 mmol/L (22-29); Chloride 103 mmol/L (98-107); Globulin 2.3 g/dL (1.3-4.6); Glomerular Filtration Rate 71.8 mL/min (90-130); Glucose 101 mg/dL (65-115); Osmolality Calculated 291 mOsm/kg (285-295); Potassium 4.6 mmol/L (3.5-5.1); Sodium 139 mmol/L (136-145); Thyroid Stimulating Hormone 3.45 uIU/mL (0.27-4.20); Total Bilirubin 0.6 mg/dL (0.15-1.2); Total Protein 6.7 g/dL (6.6-8.7)
[2023-05-10] MEDS: sodium chloride 0.9% 250 ML 75 ML IV (12:33)
[2023-05-10] MEDS: durvalumab 1,500 MG in sodium chloride 0.9% 250 ML 280 MG IV (12:38)
[2023-05-10 13:51] VITALS: BP 93/63; PULSE 74; RESP 18; TEMP 36.2; O2SAT 99
== END 2023-05-10 23:59 | disposition home or self-care (01) ==
PROVIDERS: Nurse Practitioner Family; PCP Nurse Practitioner; Visit Provider Internal Medicine Medical Oncology
DX: C34.12 Malignant neoplasm of upper lobe, left bronchus or lung (principal); Z87.891 Personal history of nicotine dependence; Z51.12 Encounter for antineoplastic immunotherapy
CPT/HCPCS: 36415; 80053; 84443; 85025; 96413; 99214; J1642; J7050; J9173

== ENCOUNTER 2023-05-22 05:30 | Outpatient (CLI) | payer OTHER, SELFPAY ==
--- NOTE | 2023-05-22 11:30 | PETR_ITS ---
PROCEDURE INFORMATION: Exam: PET/CT Skull Base to Mid-thigh Exam date and time: 05/22/2023 11:47 AM Age: 68 years old Clinical indication: Condition or disease; Primary cancer: Malignant neoplasm upper lobe, L bronchus or lung; Follow-up oncological assessment; Additional info: Restaging LABS AND CLINICAL REPORTS: Glucose: 113 mg/dl Treatment strategy for malignancy (PET staging): Restaging (PS) TECHNIQUE: Imaging protocol: Following at least four-hour fasting and following the injection of radiopharmaceutical, low dose CT images were obtained. Then, PET images were obtained. Attenuation corrected images were constructed using the CT scan. Fused images of PET and CT were reviewed. The standardized uptake values (SUV) reported below are maximum values within a region of interest, expressed in gm/ml. Exam includes orbital meatal line to mid-thigh. Radiopharmaceutical: 13.3 mCi F-18 FDG (Fluorodeoxyglucose), IV. Time of imaging post radiopharmaceutical administration: 49.2 minutes. Injection site: Right antecubital vein. COMPARISON: 1. CT chest 03/03/2023. 2. CT chest 11/16/2022. 3. CT chest 08/05/2022. 4. PT PET Scan 03/07/2022. FINDINGS: Tubes, catheters and devices: A right chest port is in good position with its tip at the SVC/RA junction. Brain: Visualized brain has normal physiologic uptake. Pharynx: No abnormal uptake. Larynx: No abnormal uptake. Lungs, pleura and trachea: No abnormal uptake. Irregular soft tissue density/scarring at the posteromedial aspect of left upper lobe, adjacent to the aortic arch, has a maximum SUV of only 3.2 (image 46). It is unchanged from the last CT on 03/03/2023. Its maximum SUV is not significantly elevated above mediastinal background. Heart: Normal physiologic uptake. Mediastinal space: No abnormal uptake. For reference, mediastinal blood pool max SUV is 2.8 and mean SUV is 2.3. No abnormal uptake. Liver: No abnormal uptake. For reference, liver max SUV is 3.5 and mean SUV is 2.8. No abnormal uptake. Gallbladder and bile ducts: No abnormal uptake. Pancreas: No abnormal uptake. Spleen: No abnormal uptake. Adrenal glands: No abnormal uptake. Kidneys and ureters: Normal physiologic uptake. Stomach and bowel: No abnormal uptake. Vasculature: No abnormal uptake. Lymph nodes: No abnormal uptake. No lymphadenopathy in the head, neck, chest, abdomen, pelvis or extremities. Bones/joints: No metabolically active areas. Soft tissues: No metabolically active areas. [id number] IMPRESSION: 1. No evidence of FDG avid malignant neoplasm. 2. Stable irregular soft tissue density/scarring at the posteromedial left lung apex is consistent with successfully treated lung cancer.
== END 2023-05-22 05:31 | disposition home or self-care (01) ==
LOC: RAD 05-24 05:31
PROVIDERS: PCP Nurse Practitioner; Visit Provider Internal Medicine Medical Oncology
DX: C34.12 Malignant neoplasm of upper lobe, left bronchus or lung (principal)
CPT/HCPCS: 78815; A9552

== ENCOUNTER 2023-06-07 09:46 | Oncology outpatient (recurring) (ONCR) | payer OTHER, SELFPAY ==
[2023-06-07 09:53] VITALS: BP 95/65; PULSE 73; RESP 16; TEMP 36.4
[2023-06-07 10:08] LABS: Basophils # 0.1 10^3/uL (0.0-0.1); Basophils % 1.5 %; Eosinophils # 0.2 10^3/uL (0.0-0.8); Hematocrit 37.9 % (36-47); Lymphocytes # 1.4 10^3/uL (0.8-4.8); Lymphocytes % 30.6 %; Mean Corpuscular HGB Conc 33.8 g/dL (30-55); Mean Corpuscular Hemoglobin 30.3 pg (27-33); Mean Corpuscular Volume 89.6 fl (85-98); Mean Platelet Volume 9.1 fL (7.4-10.4); Monocytes # 0.5 10^3/uL (0.2-0.9); Monocytes % 11.2 %; Neutrophils # 2.38 10^3/uL (1.8-7.7); Neutrophils % 52.5 %; Nucleated Red Blood Cells % 0 %; Platelet Count 211 10^3/cmm (157-399); Red Blood Count 4.23 10^6/uL (3.85-5.65); Red Cell Distribution Width 12.1 % (12.1-15.1); White Blood Count 4.54 10^3/uL (3.29-11.43)
[2023-06-07 10:45] LABS: Alanine Aminotransferase 18 U/L (0-33); Albumin Level 4.3 g/dL (3.5-5.2); Alkaline Phosphatase 113 U/L (35-105); Anion Gap 12.1 (5-19); Aspartate Amino Transferase 31 U/L (0-32); Blood Urea Nitrogen 14 mg/dL (8-23); Calcium 9.2 mg/dL (8.5-10.5); Carbon Dioxide 27 mmol/L (22-29); Chloride 101 mmol/L (98-107); Creatinine Clr Calc Pharmacy 65.4033; Globulin 2.7 g/dL (1.3-4.6); Glomerular Filtration Rate 83.7 mL/min (90-130); Glucose 110 mg/dL (65-115); Osmolality Calculated 283 mOsm/kg (285-295); Potassium 4.1 mmol/L (3.5-5.1); Sodium 136 mmol/L (136-145); Thyroid Stimulating Hormone 4.55 uIU/mL (0.27-4.20); Total Bilirubin 0.5 mg/dL (0.15-1.2)
[2023-06-07] MEDS: durvalumab 1,500 MG in sodium chloride 0.9% 250 ML 280 MG IV (12:24)
[2023-06-07 13:43] VITALS: BP 108/62; PULSE 73; RESP 18
== END 2023-06-07 23:59 | disposition home or self-care (01) ==
PROVIDERS: PCP Nurse Practitioner; Visit Provider Internal Medicine Medical Oncology
DX: C34.92 Malignant neoplasm of unspecified part of left bronchus or lung (principal); E03.9 Hypothyroidism, unspecified; R53.83 Other fatigue; C77.9 Secondary and unspecified malignant neoplasm of lymph node, unspecified; Z79.899 Other long term (current) drug therapy; Z51.12 Encounter for antineoplastic immunotherapy
CPT/HCPCS: 80053; 84443; 85025; 96413; 99214; J1642; J7050; J9173

== ENCOUNTER 2023-07-12 14:09 | Oncology outpatient (recurring) (ONCR) | payer OTHER, SELFPAY ==
[2023-07-12 14:14] VITALS: BP 113/69; PULSE 86; RESP 16; TEMP 36.8; O2SAT 97
== END 2023-07-29 23:59 | disposition home or self-care (01) ==
LOC: ONCMED 14:10
PROVIDERS: PCP Nurse Practitioner; Visit Provider Internal Medicine Medical Oncology
DX: Z45.2 Encounter for adjustment and management of vascular access device
CPT/HCPCS: 96523; J1642

== ENCOUNTER 2023-07-21 10:18 | Emergency (ER) | payer OTHER, SELFPAY ==
[2023-07-21 10:28] VITALS: BP 138/77; PULSE 99; RESP 18; TEMP 38.3; O2SAT 96; BMI 21.7
--- NOTE | 2023-07-21 10:30 | XRR_ITS ---
PROCEDURE INFORMATION: Exam: XR Chest Exam date and time: 07/21/2023 10:34 AM Age: 68 years old Clinical indication: Cough; Prior surgery; Surgery date: 6+ months; Surgery type: Port; Patient HX: HX of lung cancer TECHNIQUE: Imaging protocol: Radiologic exam of the chest. Views: 1 view. COMPARISON: CT chest w con* [id number] 03/03/2023 4:52 PM FINDINGS: Right chest port tip projects over the mid SVC, unchanged. Lungs: Similar left upper lobe consolidation. No new focal consolidation. Pleural spaces: No pleural effusion. No pneumothorax. Heart/Mediastinum: No cardiomegaly. Bones/joints: No acute findings. XR/XR chest 1V portable [id number] IMPRESSION: No new/acute findings.
--- NOTE | 2023-07-21 10:40 | ED_ITS ---
HPI - Fever General: Chief Complaint: Fever Stated Complaint: possible pneumonia,Felix sent Time Seen by Provider: 07/21/23 10:35 Source: patient Mode of arrival: ambulatory Limitations: no limitations History of Present Illness: 68-year-old female with a history of lung cancer currently in remission not on any chemo or radiation currently states last 2 days she has had a cough along with sore throat no fever does have a fever 101 here today. States she had an x-ray at the clinic that showed pneumonia and was sent here she denies any severe dyspnea denies any vomiting or diarrhea. Associated symptoms: Deny abdominal pain, chills, chest pain, diarrhea, dysuria, headache(s), nausea or vomiting Review of Systems Const: Denies: fever(s), chills, body aches or change in appetite ENMT: Reports: throat pain; Denies: dental pain Card: Denies: chest pain Resp: Reports: non-productive cough; Denies: dyspnea GI: Denies: abdominal pain, nausea, vomiting or diarrhea : Denies: dysuria Musc: Denies: neck pain or back pain Skin/Breast: Denies: rash Neuro: Denies: headache(s) PFSH ED PFSH: Medical History Hyperlipidemia Hypertension Hypothyroidism Non-small cell lung cancer Surgical History History of hysterectomy with bilateral oophorectomy [place], [place] History of tonsillectomy Hx of colonoscopy S/P bronchoscopy (02/20/22) Bronchoscopy with EBUS Family History Mother Cancer ovarian Father Dementia Other CAD (coronary artery disease) Hyperlipidemia Hypertension Denies family history of Clotting disorder Psychiatric illness Chronic kidney disease (CKD) Suicide Anesthesia complication Bleeding disorder Lung disease Stroke Social History Smoking and tobacco/nicotine status: former use of tobacco/nicotine (x 30 years) Quit status (tobacco/nicotine): has quit using Year quit tobacco: 2011 Former quit date comment: 1 ppd X 36 years, Started at age 20 Alcohol intake: never Physical Exam Const: COMMON NORMALS: no acute distress, patient oriented x3 and healthy appearing HENMT: COMMON NORMALS: normocephalic and atraumatic HEAD & SCALP: normocephalic and atraumatic Eye: COMMON NORMALS: Equal, round and reactive pupils present and EOMs intact bilaterally PUPIL: Yes Equal, round and reactive pupils present Neck/C-Spine: COMMON NORMALS: full ROM and supple Chest: COMMONS NORMALS: normal inspection of the chest and normal palpation of entire chest wall Resp: COMMON NORMALS: normal respiratory effort, No retractions, No use of accessory muscles and clear to auscultation bilaterally AUSCULTATION: clear to auscultation bilaterally Cardio: COMMON NORMALS: regular rate, regular rhythm and No murmurs present (Cardio) RATE: regular rate RHYTHM: regular rhythm Extremity: COMMON NORMALS: normal to inspection and full ROM Neuro: COMMON NORMALS: patient oriented x3, moves all extremities and no focal motor deficits Psych: COMMON NORMALS: mental status grossly normal, Normal thought process present and cooperative THOUGHT PROCESS: Normal thought process present Skin: COMMON NORMALS: no rashes or lesions noted and no wounds GENERAL SKIN EXAM: no rashes or lesions noted Course Vital Signs: Vital signs: Vital Signs Temperature 101.0 F H 07/21/23 10:28 Pulse Rate 100 07/21/23 11:25 Respiratory Rate 18 07/21/23 11:25 Blood Pressure 138/77 07/21/23 11:25 Pulse Oximetry 96 07/21/23 11:25 Oxygen Delivery Me thod Room Air 07/21/23 11:25 MDM - Fever Medical Decision Making Patient presents here with cough fever sore throat did test positive for COVID likely causing the symptoms no signs of bacterial infection no signs of pneumonia. She is in no distress here she is stable for discharge she is to follow-up with PCP and return if worsening she understands agrees to plan Medical Records I reviewed the patient's medical records. Lab Data I reviewed the patient's lab results. 07/21/23 10:35 07/21/23 10:35 Radiology Impressions Chest X-Ray 07/21/23 10:30 IMPRESSION: No new/acute findings. Laboratory Results WBC 8.61 10^3/uL (3.29-11.43) 07/21/23 10:35 RBC 4.37 10^6/uL (3.85-5.65) 07/21/23 10:35 Hgb 13.20 g/dL (11.27-16.99) 07/21/23 10:35 Hct 38.9 % (36-47) 07/21/23 10:35 MCV 89.0 fl (85-98) 07/21/23 10:35 MCH 30.2 pg (27-33) 07/21/23 10:35 MCHC 33.9 g/dL (30-55) 07/21/23 10:35 RDW 12.5 % (12.1-15.1) 07/21/23 10:35 Plt Count 192 10^3/cmm (157-399) 07/21/23 10:35 MPV 9.0 fL (7.4-10.4) 07/21/23 10:35 Neut % (Auto) 74.7 % 07/21/23 10:35 Lymph % (Auto) 14.5 % 07/21/23 10:35 Appling % (Auto) 9.9 % 07/21/23 10:35 Eos % (Auto) 0.1 % 07/21/23 10:35 Baso % (Auto) 0.6 % 07/21/23 10:35 Neut # (Auto) 6.43 10^3/uL (1.8-7.7) 07/21/23 10:35 Lymph # (Auto) 1.3 10^3/uL (0.8-4.8) 07/21/23 10:35 Appling # (Auto) 0.9 10^3/uL (0.2-0.9) 07/21/23 10:35 Eos # (Auto) 0.0 10^3/uL (0.0-0.8) 07/21/23 10:35 Baso # (Auto) 0.1 10^3/uL (0.0-0.1) 07/21/23 10:35 Nucleated RBC % (auto) 0 % 07/21/23 10:35 Nucleated RBCs # 0.0 /100WBC 07/21/23 10:35 Sodium 135 mmol/L (136-145) L 07/21/23 10:35 Potassium 3.9 mmol/L (3.5-5.1) 07/21/23 10:35 Chloride 99 mmol/L (98-107) 07/21/23 10:35 Carbon Dioxide 23 mmol/L (22-29) 07/21/23 10:35 Anion Gap 16.9 (5-19) 07/21/23 10:35 BUN 10 mg/dL (8-23) 07/21/23 10:35 Creatinine 0.6 mg/dL (0.5-0.9) 07/21/23 10:35 GFR Calculation 100.0 mL/min (90-130) 07/21/23 10:35 Glucose 154 mg/dL (65-115) H 07/21/23 10:35 Calculated Osmolality 282 mOsm/kg (285-295) L 07/21/23 10:35 Lactic Acid 2.2 mmol/L (0.5-2.2) 07/21/23 10:35 Calcium 9.2 mg/dL (8.5-10.5) 07/21/23 10:35 Total Bilirubin 0.7 mg/dL (0.15-1.2) 07/21/23 10:35 AST 58 U/L (0-32) H 07/21/23 10:35 ALT 50 U/L (0-33) H 07/21/23 10:35 Alkaline Phosphatase 109 U/L (35-105) H 07/21/23 10:35 Total Protein 7.3 g/dL (6.6-8.7) 07/21/23 10:35 Albumin 4.4 g/dL (3.5-5.2) 07/21/23 10:35 Globulin 2.9 g/dL (1.3-4.6) 07/21/23 10:35 SARS-CoV-2 Ag (Rapid) positive (Negative) H 07/21/23 10:57 All radiology interpretation(s) finalized by discharge Discharge Plan Discharge Patient Disposition: Home Clinical Impression: COVID-19 Condition: Stable Prescriptions: New Paxlovid 300 mg (150 mg x 2)-100 mg tablets,dose pack See Rx Instructions .ROUTE .COMPLEX Qty: 30 0RF Rx Instructions: take TWO 150 mg tablets of nirmatrelvir with ONE 100 mg tablet of ritonavir twice daily for 5 days No Action trazodone 50 mg tablet 50 mg PO BEDTIME Qty: 30 5RF Stiolto Respimat 2.5-2.5 mcg/actuation mist 2 puff inhalation DAILY Qty: 4 6RF atorvastatin 20 mg Tablet 10 mg PO DAILY levothyroxine 100 mcg Tablet 100 mcg PO DAILY albuterol sulfate 90 mcg/actuation HFA aerosol inhaler 1 inh inhalation Q6H PRN (Reason: shortness of breath or wheezing) Qty: 8.5 3RF Discharge Orders: Discharge ED (Routine); Ordered 07/21/23 Ordered By: Foster Regalado Referrals: Natalia Felix FNP [Primary Care Provider] - 1-3 days Discharge Diet: Advance as tolerated Discharge Activity: Resume usual activity Patient Instructions: COVID-19 (Coronavirus Disease 2019) (ED) Coding Level of Care Code ED 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
[2023-07-21 10:43] LABS: Basophils # 0.1 10^3/uL (0.0-0.1); Basophils % 0.6 %; Eosinophils % 0.1 %; Hematocrit 38.9 % (36-47); Lymphocytes # 1.3 10^3/uL (0.8-4.8); Lymphocytes % 14.5 %; Mean Corpuscular HGB Conc 33.9 g/dL (30-55); Mean Corpuscular Hemoglobin 30.2 pg (27-33); Monocytes # 0.9 10^3/uL (0.2-0.9); Monocytes % 9.9 %; Neutrophils # 6.43 10^3/uL (1.8-7.7); Neutrophils % 74.7 %; Nucleated Red Blood Cells % 0 %; Platelet Count 192 10^3/cmm (157-399); Red Blood Count 4.37 10^6/uL (3.85-5.65); Red Cell Distribution Width 12.5 % (12.1-15.1); White Blood Count 8.61 10^3/uL (3.29-11.43)
[2023-07-21] MEDS: acetaminophen 325 mg Tablet 650 MG PO (10:53)
[2023-07-21] MEDS: sodium chloride 0.9% 1,000 ML 999 ML IV (10:54)
[2023-07-21 10:58] LABS: Lactic Sepsis W/Reflex 2.2 mmol/L (0.5-2.2)
[2023-07-21 11:05] LABS: Alanine Aminotransferase 50 U/L (0-33); Albumin Level 4.4 g/dL (3.5-5.2); Alkaline Phosphatase 109 U/L (35-105); Anion Gap 16.9 (5-19); Aspartate Amino Transferase 58 U/L (0-32); Blood Urea Nitrogen 10 mg/dL (8-23); Calcium 9.2 mg/dL (8.5-10.5); Carbon Dioxide 23 mmol/L (22-29); Chloride 99 mmol/L (98-107); Globulin 2.9 g/dL (1.3-4.6); Glucose 154 mg/dL (65-115); Osmolality Calculated 282 mOsm/kg (285-295); Potassium 3.9 mmol/L (3.5-5.1); Sodium 135 mmol/L (136-145); Total Bilirubin 0.7 mg/dL (0.15-1.2); Total Protein 7.3 g/dL (6.6-8.7)
[2023-07-21 11:21] LABS: SARS Covid-2 Antigen positive (Negative)
[2023-07-21 11:25] VITALS: BP 138/77; PULSE 100; RESP 18; O2SAT 96
[2023-07-21 11:33] VITALS: TEMP 37.7
[2023-07-21 11:39] VITALS: PULSE 99; O2SAT 98
[2023-07-21 12:29] LABS: Reflex Lactate Order REFLEX LACTIC ORDERD
== END 2023-07-21 11:40 | disposition home or self-care (01) ==
PROVIDERS: Emergency Provider Emergency Medicine; PCP Nurse Practitioner
DX: U07.1 COVID-19 (principal); Z87.891 Personal history of nicotine dependence; E78.5 Hyperlipidemia, unspecified; I10 Essential (primary) hypertension; Z85.118 Personal history of other malignant neoplasm of bronchus and lung
CPT/HCPCS: 36415; 71045; 80053; 83605; 85025; 87040; 87077; 87205; 87426; 99284; J7030

== ENCOUNTER 2023-08-09 06:10 | Outpatient (CLI) | payer OTHER, SELFPAY ==
--- NOTE | 2023-08-09 06:30 | CT_ITS ---
WS: [id number] CT CHEST TECHNIQUE: Contrast enhanced CT of the chest with coronal and sagittal reformatted images. CLINICAL INFORMATION: lung cancer COMPARISON: CT chest 03/03/2023 and PET/CT 05/22/2023 DLP: 237.[address] scans at [facility] use at least one of these dose optimization techniques: automated e xposure control; mA and/or kV adjustment per patient size (includes targeted exams where dose is matc hed to clinical indication); or iterative reconstruction. FINDINGS: Advanced chronic emphysematous changes. Again seen is parenchymal volume loss in the LEFT lung apex w ith consolidation. Findings compatible with treated neoplasm in the LEFT lung apex. No evidence of pr ogression since the prior examination. No FDG avid neoplasm on the prior PET/CT. Stable mild pleural thickening at the RIGHT lung apex. Normal caliber thoracic aorta. RIGHT to LEFT m ediastinal shift is unchanged. No middle or hilar lymphadenopathy. No axillary lymphadenopathy. Adren al glands are normal. Tiny esophageal hiatal hernia. IMPRESSION: 1. Stable changes of treated neoplasm in the LEFT lung apex with associated consolidation with air b ronchograms. No evidence of progression. 2. Volume loss LEFT lung is unchanged. 3. Advanced chronic emphysematous changes. 4. No new suspicious abnormalities.
[2023-08-09] MEDS: iohexol 350 mg/mL 500 mL Btl (per mL) IV (06:44)
== END 2023-08-09 06:11 | disposition home or self-care (01) ==
PROVIDERS: PCP Nurse Practitioner; Visit Provider Internal Medicine Medical Oncology
DX: C34.92 Malignant neoplasm of unspecified part of left bronchus or lung (principal); C77.9 Secondary and unspecified malignant neoplasm of lymph node, unspecified; J43.9 Emphysema, unspecified
CPT/HCPCS: 71260; Q9967

== ENCOUNTER 2023-08-10 09:25 | Outpatient (CLI) | payer OTHER, SELFPAY ==
--- NOTE | 2023-08-10 09:34 | MM_ITS ---
WS: [email or web address] VIEWS: MLO and CC views both breasts. 3D digital tomosynthesis is also included in this exam. Comparison made with prior exam of 04/20/2019, 06/01/2019, 05/31/2020, 06/03/2021, 07/20/2022.. Findings: There was no sign of mass, architectural distortion or suspicious calcification in either breast. An [id number] noted along the RIGHT axilla. The breasts are heterogeneously dense which may obscure s mall masses. Impression: MM/[place] [id number] BI-RADS: 2-Benign finding FOLLOW-UP: 1 Year Follow-up This mammogram was also analyzed by the Computer Aided Detection System R2 Imag e Medication Assistant.
== END 2023-08-10 09:26 | disposition home or self-care (01) ==
LOC: RAD 09:26
PROVIDERS: PCP Nurse Practitioner; Visit Provider Nurse Practitioner
DX: Z12.31 Encounter for screening mammogram for malignant neoplasm of breast (principal)
CPT/HCPCS: 77063; 77067

== ENCOUNTER 2023-08-31 10:43 | Oncology outpatient (recurring) (ONCR) | payer OTHER, SELFPAY ==
[2023-08-31 11:35] VITALS: BP 112/77; PULSE 86; RESP 16; TEMP 36.6; O2SAT 94
[2023-08-31 11:45] LABS: Basophils # 0.1 10^3/uL (0.0-0.1); Basophils % 1.7 %; Eosinophils # 0.1 10^3/uL (0.0-0.8); Eosinophils % 2.1 %; Hematocrit 36.6 % (36-47); Lymphocytes % 21.1 %; Mean Corpuscular HGB Conc 33.9 g/dL (30-55); Mean Corpuscular Hemoglobin 29.7 pg (27-33); Mean Corpuscular Volume 87.6 fl (85-98); Mean Platelet Volume 9.2 fL (7.4-10.4); Monocytes # 0.5 10^3/uL (0.2-0.9); Monocytes % 10.1 %; Neutrophils # 3.14 10^3/uL (1.8-7.7); Neutrophils % 64.8 %; Nucleated Red Blood Cells % 0 %; Platelet Count 206 10^3/cmm (157-399); Red Blood Count 4.18 10^6/uL (3.85-5.65); Red Cell Distribution Width 12.7 % (12.1-15.1); White Blood Count 4.84 10^3/uL (3.29-11.43)
[2023-08-31 12:09] LABS: Alanine Aminotransferase 23 U/L (0-33); Albumin Level 4.2 g/dL (3.5-5.2); Alkaline Phosphatase 89 U/L (35-105); Anion Gap 13.1 (5-19); Aspartate Amino Transferase 26 U/L (0-32); Blood Urea Nitrogen 13 mg/dL (8-23); Calcium 9.6 mg/dL (8.5-10.5); Carbon Dioxide 26 mmol/L (22-29); Chloride 103 mmol/L (98-107); Globulin 2.9 g/dL (1.3-4.6); Glomerular Filtration Rate 123.4 mL/min (90-130); Glucose 99 mg/dL (65-115); Osmolality Calculated 286 mOsm/kg (285-295); Potassium 4.1 mmol/L (3.5-5.1); Sodium 138 mmol/L (136-145); Total Bilirubin 0.5 mg/dL (0.15-1.2); Total Protein 7.1 g/dL (6.6-8.7)
== END 2023-09-29 23:59 | disposition home or self-care (01) ==
PROVIDERS: Internal Medicine; PCP Nurse Practitioner; Visit Provider Internal Medicine Medical Oncology
DX: C34.92 Malignant neoplasm of unspecified part of left bronchus or lung (principal); E03.9 Hypothyroidism, unspecified; R53.83 Other fatigue; C77.9 Secondary and unspecified malignant neoplasm of lymph node, unspecified; Z79.899 Other long term (current) drug therapy
CPT/HCPCS: 36591; 80053; 85025; 99214; J1642

== ENCOUNTER → 2023-09-09 12:43 | Outpatient (BNVA) | payer OTHER, SELFPAY | PROVIDERS: PCP Nurse Practitioner; Visit Provider Internal Medicine Pulmonary Disease | DX: C34.12 Malignant neoplasm of upper lobe, left bronchus or lung (principal); J43.2 Centrilobular emphysema; Z87.891 Personal history of nicotine dependence; J98.4 Other disorders of lung | CPT/HCPCS: 99214 ==

== ENCOUNTER 2023-10-04 13:40 | Oncology outpatient (recurring) (ONCR) | payer OTHER, SELFPAY | END 2023-10-28 23:59 | disposition home or self-care (01) | PROVIDERS: PCP Nurse Practitioner; Visit Provider Internal Medicine Medical Oncology | DX: Z45.2 Encounter for adjustment and management of vascular access device | CPT/HCPCS: 96523; J1642 ==

== ENCOUNTER 2023-11-10 14:18 | Oncology outpatient (recurring) (ONCR) | payer OTHER, SELFPAY | END 2023-11-28 23:59 | disposition home or self-care (01) | LOC: ONCMED 14:19 | PROVIDERS: PCP Nurse Practitioner; Visit Provider Internal Medicine Medical Oncology | DX: Z45.2 Encounter for adjustment and management of vascular access device (principal) | CPT/HCPCS: J1642 ==

== ENCOUNTER 2023-12-08 12:25 | Oncology outpatient (recurring) (ONCR) | payer OTHER, SELFPAY ==
[2023-12-08 13:25] LABS: Basophils # 0.1 10^3/uL (0.0-0.1); Eosinophils # 0.1 10^3/uL (0.0-0.8); Eosinophils % 2.5 %; Hematocrit 35.6 % (36-47); Lymphocytes # 1.3 10^3/uL (0.8-4.8); Lymphocytes % 24.5 %; Mean Corpuscular HGB Conc 33.7 g/dL (30-55); Mean Corpuscular Hemoglobin 29.7 pg (27-33); Mean Corpuscular Volume 88.1 fl (85-98); Mean Platelet Volume 9.2 fL (7.4-10.4); Monocytes # 0.6 10^3/uL (0.2-0.9); Monocytes % 11.4 %; Neutrophils # 3.14 10^3/uL (1.8-7.7); Neutrophils % 60.4 %; Nucleated Red Blood Cells % 0 %; Platelet Count 208 10^3/cmm (157-399); Red Blood Count 4.04 10^6/uL (3.85-5.65); Red Cell Distribution Width 12.9 % (12.1-15.1); White Blood Count 5.19 10^3/uL (3.29-11.43)
[2023-12-08 14:53] LABS: Alanine Aminotransferase 20 U/L (0-33); Alkaline Phosphatase 103 U/L (35-105); Anion Gap 12.9 (5-19); Aspartate Amino Transferase 28 U/L (0-32); Blood Urea Nitrogen 11 mg/dL (8-23); Calcium 9.3 mg/dL (8.5-10.5); Carbon Dioxide 26 mmol/L (22-29); Chloride 108 mmol/L (98-107); Creatinine Clr Calc Pharmacy 65.9978; Globulin 2.5 g/dL (1.3-4.6); Glucose 134 mg/dL (65-115); Osmolality Calculated 297 mOsm/kg (285-295); Potassium 3.9 mmol/L (3.5-5.1); Sodium 143 mmol/L (136-145); Total Bilirubin 0.5 mg/dL (0.15-1.2); Total Protein 6.5 g/dL (6.6-8.7)
== END 2023-12-28 23:59 | disposition home or self-care (01) ==
PROVIDERS: Internal Medicine; PCP Nurse Practitioner; Visit Provider Internal Medicine Medical Oncology
DX: C34.12 Malignant neoplasm of upper lobe, left bronchus or lung (principal); Z45.2 Encounter for adjustment and management of vascular access device; Z92.21 Personal history of antineoplastic chemotherapy
CPT/HCPCS: 36591; 80053; 85025; 99214; J1642

== ENCOUNTER 2024-01-21 11:37 | Oncology outpatient (recurring) (ONCR) | payer OTHER, SELFPAY ==
--- NOTE | 2024-01-21 12:00 | CT_ITS ---
WS: [id number] CT chest w con* [id number] HISTORY: adenocarcinoma of upper lobe of left lung TECHNIQUE: Axial imaging performed through the thorax. Coronal and sagittal reformats are submitted. All CT scans at [facility] use at least one of these dose optimization techniques: automated exposure control; mA and/or kV adjustment per patient size (includes targeted exams where dose is mat ched to clinical indication); or iterative reconstruction. CONTRAST: Omnipaque 350; 100 mL IV. DLP: 251.91 mGy.cm COMPARISON: 08/09/2023, PET/CT 05/22/2023 Lungs and central airway: Mild LEFT lung volume loss as seen on prior studies. Lungs are hyperexpande d. Reidentified is a chronic atelectasis and posttreatment related changes in the LEFT upper lobe. No progression of atelectasis. No new mass or consolidation. Focal linear scar at the RIGHT apex. No ne w mass or pneumonia. Pleura: Normal. No pleural effusion. Heart and pericardium: Normal size heart with no pericardial effusion. Mediastinum and leticia: No mediastinum or hilar adenopathy. Vessels: Mild atherosclerosis aorta. Normal size pulmonary artery. Chest wall and lower neck: Right-sided Mediport. No mediastinal or hilar adenopathy. No axillary or s upraclavicular lymph nodes. Upper abdomen: Small hiatal hernia. Visualized liver is negative for metastatic disease. Normal maricruz l vein. Normal adrenal glands. Osseous structures: No destructive process. CT/CT chest w con* [id number] IMPRESSION: 1. Posttreatment volume loss with chronic atelectasis in the LEFT upper lobe a s seen on prior studies. 2. No recurrent mass or new pulmonary mass or nodule. 3. No mediastinal or hilar adenopathy. 4. Chronic emphysema. 5. No adrenal mass.
[2024-01-21] MEDS: iohexol 350 mg/mL 500 mL Btl (per mL) IV (12:18)
== END 2024-01-28 23:59 | disposition home or self-care (01) ==
LOC: RAD 11:37 → ONCMED 01-26 18:45
PROVIDERS: PCP Nurse Practitioner; Visit Provider Internal Medicine
DX: C34.12 Malignant neoplasm of upper lobe, left bronchus or lung (principal); J98.11 Atelectasis; J43.9 Emphysema, unspecified
CPT/HCPCS: 71260; Q9967

== ENCOUNTER 2024-03-13 13:04 | Oncology outpatient (recurring) (ONCR) | payer OTHER, SELFPAY ==
[2024-03-13 13:49] LABS: Basophils # 0.1 10^3/uL (0.0-0.1); Basophils % 1.5 %; Eosinophils # 0.1 10^3/uL (0.0-0.8); Eosinophils % 2.5 %; Hematocrit 36.4 % (36-47); Lymphocytes # 1.4 10^3/uL (0.8-4.8); Lymphocytes % 28.3 %; Mean Corpuscular HGB Conc 34.1 g/dL (30-55); Mean Corpuscular Hemoglobin 30.6 pg (27-33); Mean Corpuscular Volume 89.9 fl (85-98); Mean Platelet Volume 9.4 fL (7.4-10.4); Monocytes # 0.4 10^3/uL (0.2-0.9); Monocytes % 9.2 %; Neutrophils # 2.78 10^3/uL (1.8-7.7); Neutrophils % 58.3 %; Nucleated Red Blood Cells % 0 %; Platelet Count 192 10^3/cmm (157-399); Red Blood Count 4.05 10^6/uL (3.85-5.65); Red Cell Distribution Width 12.5 % (12.1-15.1); White Blood Count 4.77 10^3/uL (3.29-11.43)
[2024-03-13 14:06] LABS: Alanine Aminotransferase 30 U/L (0-33); Albumin Level 4.2 g/dL (3.5-5.2); Alkaline Phosphatase 75 U/L (35-105); Aspartate Amino Transferase 51 U/L (0-32); Blood Urea Nitrogen 18 mg/dL (8-23); Calcium 9.2 mg/dL (8.5-10.5); Carbon Dioxide 24 mmol/L (22-29); Chloride 101 mmol/L (98-107); Globulin 2.5 g/dL (1.3-4.6); Glomerular Filtration Rate 83.7 mL/min (90-130); Glucose 140 mg/dL (65-115); Osmolality Calculated 292 mOsm/kg (285-295); Sodium 139 mmol/L (136-145); Total Bilirubin 0.2 mg/dL (0.15-1.2); Total Protein 6.7 g/dL (6.6-8.7)
[2024-03-13 14:10] LABS: Anion Gap 17.8 (5-19); Potassium 3.8 mmol/L (3.5-5.1)
== END 2024-03-29 23:59 | disposition home or self-care (01) ==
PROVIDERS: PCP Nurse Practitioner; Visit Provider Internal Medicine
DX: C34.12 Malignant neoplasm of upper lobe, left bronchus or lung (principal); J98.11 Atelectasis; J43.9 Emphysema, unspecified
CPT/HCPCS: 36591; 80053; 85025; 99214

== ENCOUNTER 2024-04-26 11:53 | Oncology outpatient (recurring) (ONCR) | payer OTHER, SELFPAY ==
--- NOTE | 2024-04-26 12:00 | CTR_ITS ---
PROCEDURE INFORMATION: Exam: CT Chest With Contrast; Diagnostic Exam date and time: 04/26/2024 12:14 PM Age: 69 years old Clinical indication: Condition or disease; Other: Lung cancer; Prior surgery; Surgery date: 6+ months; Surgery type: Port; Additional info: Surveillance TECHNIQUE: Imaging protocol: Diagnostic computed tomography of the chest with contrast. Radiation optimization: All CT scans at this facility use at least one of these dose optimization techniques: automated exposure control; mA and/or kV adjustment per patient size (includes targeted exams where dose is matched to clinical indication); or iterative reconstruction. Contrast material: OMNI 350; Contrast volume: 100 ml; Contrast route: INTRAVENOUS (IV); COMPARISON: CT chest w con* [id number] 01/21/2024 12:14 PM RADIATION DOSE METRICS: Total DLP (mGy-cm): 223.36 FINDINGS: Tubes, catheters and devices: Right chest port noted. Lungs: Redemonstrated chronic scarring and collapse with bronchiectasis of the left upper lobe. No evidence of residual/recurrent lung mass. Moderate centrilobular emphysematous changes of the lungs. No consolidation. Pleural spaces: Unremarkable. No pneumothorax. No pleural effusion. Heart: Unremarkable. No cardiomegaly. No pericardial effusion. Lymph nodes: Unremarkable. No enlarged lymph nodes. Vasculature: Unremarkable. No aortic aneurysm. Bones/joints: No aggressive lytic or blastic bone lesions. No acute fracture. Soft tissues: Unremarkable. CT/CT chest w con* [id number] IMPRESSION: 1. No evidence of residual/recurrent disease. 2. Stable findings of chronic scarring, bronchiectasis, and collapse of the left upper lobe. 3. Moderate emphysematous changes of the lungs. COMMENTS: The presence of pulmonary emphysema on CT is an independent risk factor for lung cancer. In the absence of a history or active diagnosis of lung cancer, it is recommended that this patient with emphysema be evaluated for enrollment in a low dose CT lung cancer screening program.
[2024-04-26] MEDS: iohexol 350 mg/mL 500 mL Btl (per mL) IV (13:09)
== END 2024-04-29 23:59 | disposition home or self-care (01) ==
PROVIDERS: PCP Nurse Practitioner; Visit Provider Nurse Practitioner Family
DX: C34.12 Malignant neoplasm of upper lobe, left bronchus or lung (principal)
CPT/HCPCS: 71260; Q9967

== ENCOUNTER 2024-06-06 08:00 | Oncology outpatient (recurring) (ONCR) | payer OTHER, SELFPAY ==
[2024-06-01 13:17] LABS: Basophils # 0.1 10^3/uL (0.0-0.1); Basophils % 0.9 %; Eosinophils # 0.1 10^3/uL (0.0-0.8); Eosinophils % 0.9 %; Hematocrit 34.8 % (36-47); Lymphocytes # 1.1 10^3/uL (0.8-4.8); Lymphocytes % 13.8 %; Mean Corpuscular HGB Conc 35.3 g/dL (30-55); Mean Corpuscular Volume 87.7 fl (85-98); Mean Platelet Volume 8.5 fL (7.4-10.4); Monocytes # 0.6 10^3/uL (0.2-0.9); Monocytes % 7.8 %; Neutrophils # 6.13 10^3/uL (1.8-7.7); Neutrophils % 76.1 %; Nucleated Red Blood Cells % 0 %; Platelet Count 332 10^3/cmm (157-399); Red Blood Count 3.97 10^6/uL (3.85-5.65); Red Cell Distribution Width 12.2 % (12.1-15.1); White Blood Count 8.05 10^3/uL (3.29-11.43)
[2024-06-01 13:32] LABS: Alanine Aminotransferase 21 U/L (0-33); Albumin Level 4.2 g/dL (3.5-5.2); Alkaline Phosphatase 97 U/L (35-105); Anion Gap 14.7 (5-19); Aspartate Amino Transferase 24 U/L (0-32); Blood Urea Nitrogen 16 mg/dL (8-23); Carbon Dioxide 25 mmol/L (22-29); Chloride 104 mmol/L (98-107); Globulin 3.1 g/dL (1.3-4.6); Glomerular Filtration Rate 83.5 mL/min (90-130); Glucose 116 mg/dL (65-115); Osmolality Calculated 292 mOsm/kg (285-295); Potassium 3.7 mmol/L (3.5-5.1); Sodium 140 mmol/L (136-145); Total Bilirubin 0.5 mg/dL (0.15-1.2); Total Protein 7.3 g/dL (6.6-8.7)
== END 2024-06-29 23:59 | disposition home or self-care (01) ==
PROVIDERS: Internal Medicine Hematology & Oncology; PCP Nurse Practitioner; Visit Provider Nurse Practitioner Family
DX: Z53.9 Procedure and treatment not carried out, unspecified reason (principal)
CPT/HCPCS: 36591; 80053; 85025; 99214

== ENCOUNTER → 2024-06-27 09:10 | Outpatient (BNVA) | payer OTHER, SELFPAY | PROVIDERS: PCP Nurse Practitioner; Visit Provider Surgery | DX: Z95.828 Presence of other vascular implants and grafts (principal) | CPT/HCPCS: 99203; 99213 ==

== ENCOUNTER 2024-07-10 09:47 | Day surgery (SDC) | payer OTHER, SELFPAY ==
[2024-07-10] VITALS (7 sets, daily range): BP systolic 111–142; BP diastolic 63–78; PULSE 70–88; RESP 16–20; TEMP 36.1–36.3; O2SAT 96–100
[2024-07-10] MEDS: sodium chloride 0.9% 1,000 ML 30 ML IV (11:01)
--- NOTE | 2024-07-10 11:51 | P.HPUD_ITS ---
Surgery/Procedure H&P Update DATE OF PROCEDURE: July 10, 2024 DATE H&P PERFORMED: 06/27/24 H&P UPDATE INFORMATION: I have reviewed H&P completed within last 30 days, I have examined patient prior to procedure, No changes to prior documentation and H&P is in [facility] EMR on date indicated PLANNED PROCEDURE: Operation Date: 07/10/24 11:40 Proposed Procedures p Portacath Removal [id number], Z95.828(Not Applicable) - Blaine Fonseca MD
--- NOTE | 2024-07-10 12:25 | ANES.PREANE2 ---
Pre-Anesthetic Assessment Height/Weight: Height 5 ft 5 in Weight 137 lb Temp Pulse Resp BP Pulse Ox O2 Del Method 97 F L 70 16 142/78 99 Room Air 07/10/24 10:47 07/10/24 10:47 07/10/24 10:47 07/10/24 10:47 07/10/24 10:47 07/10/24 10:47 Preop Diagnosis: Port removal Operation Date: 07/10/24 11:40 Proposed Procedures p Portacath Removal [id number], Z95.828(Not Applicable) - Blaine Fonseca MD Was Beta Opal taken within 24 hours: N/A Was Clonidine taken within 24 hours: N/A Last intake: Intake Last Liquid Date 07/09/24 Last Liquid Time 00:00 Last Solid Date 07/09/24 Last Solid Time 19:00 Social No alcohol and No tobacco Exam alert, oriented x 3, clear to auscultation bilaterally and regular rate & rhythm Airway Submandibular: within normal limits Cervical ROM: within normal limits Mallampati: Class III Dentition: full Anesthetic Plan ASA status: 3 Anesthesia: MAC Other: Patient completed all of her chemo treatments, port no longer required, denies any issues with anesthesia in the past NPO since yesterday Labs reviewed 06/01/2024 Hypothyroidism on Synthroid Patient is able to perform ADLs, does admit to shortness of breath with exertion Plan for MAC anesthetic Medications/Allergies Home Medications Medication Instructions Recorded Confirmed Last Taken Type atorvastatin 20 mg tablet 10 mg PO DAILY 02/19/22 07/10/24 07/09/24 History levothyroxine 100 mcg tablet 100 mcg PO DAILY 02/19/22 07/10/24 07/10/24 History albuterol sulfate 90 mcg/actuation 1 inh inhalation Q6H PRN shortness 02/23/22 07/10/24 03/18/22 Rx aerosol inhaler of breath or wheezing #8.5 grams tiotropium 2.5 mcg-olodaterol 2.5 2 puff inhalation DAILY #4 grams 09/09/23 07/10/24 07/10/24 Rx mcg/actuation mist for inhalation (Stiolto Respimat) Allergies Allergy/AdvReac Type Severity Reaction Status Date / Time Penicillins Allergy ALGY-Rash Verified 06/27/24 09:14 Current Medications Generic Name Dose Route Start Last Admin Trade Name Freq PRN Reason Stop Dose Admin Sodium Chloride 1,000 mls @ 30 mls/hr 07/10/24 10:45 07/10/24 11:01 Sodium Chloride 0.9% IV 07/11/24 10:44 30 mls/hr .Q24H TAURUS Administration PFSH Anesthesia Medical History (Updated 06/27/24 @ 09:19 by WILLIAM Nassar) Non-small cell lung cancer Hypothyroidism Hyperlipidemia Hypertension Surgical History Hx of colonoscopy S/P bronchoscopy (02/20/22) Bronchoscopy with EBUS History of hysterectomy with bilateral oophorectomy [place], [place] History of tonsillectomy Family History Mother Cancer ovarian Father Dementia Other CAD (coronary artery disease) Hyperlipidemia Hypertension Denies family history of Clotting disorder Psychiatric illness Chronic kidney disease (CKD) Suicide Anesthesia complication Bleeding disorder Lung disease Stroke Social History Smoking and tobacco/nicotine status: former use of tobacco/nicotine (quit 2008) Quit status (tobacco/nicotine): has quit using Year quit tobacco: 2011 Former quit date comment: 1 ppd X 36 years, Started at age 20 Alcohol intake: never Data Anesthesia Cardiac Studies: Echocardiogram 02/19/22
[2024-07-10] MEDS: clindamycin 600 MG/50 ML PREMIX 100 MG IV (13:56)
[2024-07-10] MEDS: BUPivacaine 0.25% INJ 30 mL INJECTION (14:25)
[2024-07-10] MEDS: lidocaine-epi 1% PF 1:200,000 30 mL SDV INJECTION (14:26)
--- NOTE | 2024-07-10 14:45 | P.OP_ITS ---
Operative Report Date of procedure: July 10, 2024 Pre-op diagnosis: Presence of Port-A-Cath Post-op diagnosis: Same Post-op findings: Port-A-Cath in place, no evidence of infection Procedure done: Excision of right subclavian Port-A-Cath Implants: none Specimens removed/disposition: port a cath Surgeon: Blaine Fonseca MD Ui Ux Developer: NUNU OR STaff Estimated blood loss: 10 Brief History: 69-year-old female who presents for excision of Port-A-Cath after having completed chemotherapy for lung cancer. Procedure: Patient was brought into the OR, she was placed in a supine position, moderate anesthesia was given. The upper chest was prepped and draped in usual sterile fashion. A timeout was conducted. I proceeded then to infiltrate local anesthesia around the catheter. I made a 3.5 cm incision overlying the Port-A-Cath in the area where the previous incision was made. The incision was deepened until the Port-A-Cath was identified. I then proceeded to deliver the Port-A-Cath through the wound and the catheter was removed while holding pressure in the subclavian vein. A 3-0 Vicryl was used to close the tract left by the catheter. The capsule of the Port-A-Cath was then excised with electrocautery. Hemostasis was achieved. The wound was irrigated with saline. The wound was then closed in layers using #3-0 Vicryl for the subcutaneous tissue #4 Monocryl for the skin Dermabond was applied and a sterile dressing was applied on top. At the end of the procedure all counts were correct, the patient tolerated well the procedure was transferred to PACU in stable con dition.
--- NOTE | 2024-07-10 15:35 | ANE.PACU2 ---
Inpatient post-anesthesia follow up: Airway intact: Yes Vital signs: Temperature 97 F Pulse Rate 70 Respiratory Rate 16 Blood Pressure 116/77 Pulse Oximetry 96 Oxygen Delivery Me thod Room Air Oxygen Flow Rate 4 Fraction of Inspir ed Oxygen Hydration adequate: Yes Nausea and vomiting: No Pain level: 1 Mental status: Baseline
== END 2024-07-10 15:35 | disposition home or self-care (01) ==
PROVIDERS: PCP Nurse Practitioner; Visit Provider Surgery
PROC: (CPT 36589; principal; 2024-07-10 11:30)
DX: Z45.2 Encounter for adjustment and management of vascular access device (principal); Z85.118 Personal history of other malignant neoplasm of bronchus and lung; E03.9 Hypothyroidism, unspecified; E78.5 Hyperlipidemia, unspecified; I10 Essential (primary) hypertension; Z87.891 Personal history of nicotine dependence
CPT/HCPCS: 36590; J2704; J3010; J3490; J7030

== ENCOUNTER → 2024-08-02 08:45 | Outpatient (BNVA) | payer OTHER, SELFPAY | PROVIDERS: PCP Nurse Practitioner; Visit Provider Surgery | DX: C34.92 Malignant neoplasm of unspecified part of left bronchus or lung (principal) | CPT/HCPCS: 99213 ==

== ENCOUNTER 2024-08-14 13:09 | Outpatient (CLI) | payer OTHER, SELFPAY ==
--- NOTE | 2024-08-14 13:10 | MM_ITS ---
WS: [id number] BILATERAL 3D TOMOSYNTHESIS DIGITAL SCREENING MAMMOGRAPHY WITH CAD CLINICAL INFORMATION: SCREENING HISTORY: Screening mammogram. No current complaints. COMPARISON: 2022 TECHNIQUE: Bilateral CC and MLO views. FINDINGS: The breasts are composed of heterogeneous fibroglandular density tissue, which can limit the detectio n of small underlying mass lesions. No suspicious mass, asymmetry, calcifications, or architectural d istortion. No evidence of malignancy. Clustered calcifications RIGHT breast similar to previous MM/MM [facility] tomosynthesis [id number] IMPRESSION: DENSITY: The breasts are heterogeneously dense, which may obscure small masses. BI-RADS: 2 - Benign FOLLOW UP: 1 Year Follow-up Recommend return to annual screening mammography.
== END 2024-08-14 13:10 | disposition home or self-care (01) ==
LOC: RAD 13:09
PROVIDERS: PCP Nurse Practitioner; Visit Provider Nurse Practitioner
DX: Z12.31 Encounter for screening mammogram for malignant neoplasm of breast (principal); R92.333 Mammographic heterogeneous density, bilateral breasts; R92.1 Mammographic calcification found on diagnostic imaging of breast
CPT/HCPCS: 77063; 77067

== ENCOUNTER 2024-09-11 07:24 | Outpatient (CLI) | payer OTHER, SELFPAY ==
--- NOTE | 2024-09-11 07:28 | US_ITS ---
WS: [id number] THYROID ULTRASOUND HISTORY: elevated tsh COMPARISON: None available. Right lobe: 1.1 cm x 0.9 cm x 3.1 cm (w x ap x l). Volume: 1.4 cm3. Small heterogeneous thyroid. No concerning or discrete nodules. Left lobe: 0.9 cm x 1.0 cm x 2.8 cm (w x ap x l). Volume: 1.2 cm3. Small heterogeneous thyroid. No concerning or discrete nodules. Isthmus: 0.2 cm. There are several small but abnormal LEFT cervical chain lymph nodes. Loss of the normal fatty hilum with thickening of the cortex. Largest lymph node 0.9 x 0.6 x 1.1 cm. US/US thyroid [id number] IMPRESSION: 1. TI-RADS 2; no suspicious nodules. 2. Small caliber thyroid. 3. Small but abnormal LEFT cervical chain lymph nodes. Lymph nodes are not enl arged but there is thickening of the cortex and cystic component with displacem ent of the fatty hilum. With history of lung cancer consider follow-up CT or PE T/CT imaging at this time.
== END 2024-09-11 07:25 | disposition home or self-care (01) ==
LOC: RAD 07:25
PROVIDERS: PCP Nurse Practitioner; Visit Provider Nurse Practitioner
DX: Z01.89 Encounter for other specified special examinations (principal); R93.89 Abnormal findings on diagnostic imaging of other specified body structures; Z85.118 Personal history of other malignant neoplasm of bronchus and lung
CPT/HCPCS: 76536

== ENCOUNTER 2024-11-03 08:51 | Outpatient (CLI) | payer OTHER, SELFPAY ==
--- NOTE | 2024-11-03 08:52 | PETR_ITS ---
PROCEDURE INFORMATION: Exam: PET/CT Skull Base to Mid-thigh Exam date and time: 11/03/2024 9:58 AM Age: 69 years old Clinical indication: Restaging of lung cancer; Primary cancer: Lung cancer; Condition/disease: Lymphadenopathy (small abnormal lymph nodes in the left neck); Prior surgery; Surgery date: 6+ months; Surgery type: Port LABS AND CLINICAL REPORTS: Glucose: 109 mg/dl Treatment strategy for malignancy (PET staging): Restaging (PS) TECHNIQUE: Imaging protocol: Following at least four-hour fasting and following the injection of radiopharmaceutical, low dose CT images were obtained. Then, PET images were obtained. Attenuation corrected images were constructed using the CT scan. Fused images of PET and CT were reviewed. The standardized uptake values (SUV) reported below are maximum values within a region of interest, expressed in gm/ml. Exam includes orbital meatal line to mid-thigh. SUV normalization method: BodyWeight Radiopharmaceutical: 11.06 mCi F-18 FDG (Fluorodeoxyglucose), IV. Time of imaging post radiopharmaceutical administration: 46 minutes Injection site: right ac COMPARISON: PT PET skull to thigh SUBS [id number] 05/22/2023, CT chest 04/26/2024 FINDINGS: Brain: Benign physiologic uptake with lower than normal activity with the highest uptake in the cortex measuring 5.4 SUV. Pharynx: No abnormal uptake. Larynx: No abnormal uptake. Lungs, pleura and trachea: No abnormal uptake. Stable paramediastinal dense consolidation with air bronchogram and volume loss in the left upper lobe suggestive of chronic postradiation pneumonitis/scarring with low-grade uptake of 1.4 SUV. Stable non FDG avid linear opacity in the apex of the right upper lobe suggestive of scar. No suspicious lung nodules or masses. Persistent severe centrilobular emphysema in the right upper lobe. No pleural effusion. Heart: No abnormal uptake. There is no cardiomegaly. There is no pericardial effusion. Mediastinal space: No abnormal uptake. Maximal blood pool uptake is 1.5 SUV. Stable mediastinal shift to the left. Liver: No abnormal uptake. Maximum uptake is 2 SUV. Gallbladder and biliary ducts: No abnormal uptake. Pancreas: No abnormal uptake. Spleen: No abnormal uptake. No splenomegaly. Adrenal glands: No abnormal uptake. No nodules. Kidneys and ureters: Normal physiologic uptake. No hydronephrosis. Stomach and bowel: No abnormal uptake. Intraperitoneal and retroperitoneal spaces: No abnormal uptake. No ascites. Bladder: Benign physiologic uptake with lower activity than expected with the highest uptake in the urine measuring 6 SUV. Reproductive: No abnormal uptake. Vasculature: No abnormal uptake. No aortic aneurysm. Lymph nodes: No FDG avid lymphadenopathy in the neck, chest, abdomen, pelvis, and extremities. No abnormally enlarged lymph nodes in the left neck. 1.2 x 0.8 cm subcutaneous nodule in the left supraclavicular area on series 202, image 89 with no abnormal uptake stable in size since prior exam of 2022 represents benign finding, a lymph node or a nonspecific subcutaneous nodule. Skeleton: No abnormal uptake in the visualized axial and appendicular skeleton. Soft tissues: Massive uptake in the right distal arm indicating extravasation at the injection site in the right antecubital fossa. Linear uptake extending from the right antecubital fossa toward the right subclavian vessels suggestive of lymphatic drainage of extravasated FDG. PET/PET skull to thigh SUBS [id number] IMPRESSION: Massive extravasation of injected FDG in the right antecubital fossa causing diminished physiologic uptake in the body potential limits sensitivity of this exam for detection of malignancy. Within this limitation, there is no abnormal uptake concerning for viable malignancy. No lymphadenopathy in the left neck or elsewhere. Stable benign findings in the lungs including large area of post treatment scarring in the left upper lobe, and small linear scar in the apex of the right upper lobe.
== END 2024-11-03 08:52 | disposition home or self-care (01) ==
LOC: RAD 08:51
PROVIDERS: PCP Nurse Practitioner; Visit Provider Nurse Practitioner
DX: R59.9 Enlarged lymph nodes, unspecified (principal); Z98.890 Other specified postprocedural states; R93.0 Abnormal findings on diagnostic imaging of skull and head, not elsewhere classified; J98.4 Other disorders of lung; R91.8 Other nonspecific abnormal finding of lung field; J43.2 Centrilobular emphysema; R93.49 Abnormal radiologic findings on diagnostic imaging of other urinary organs; R93.89 Abnormal findings on diagnostic imaging of other specified body structures
CPT/HCPCS: 78815; A9552

== ENCOUNTER 2024-12-05 10:28 | Oncology outpatient (recurring) (ONCR) | payer OTHER, SELFPAY ==
--- NOTE | 2024-12-05 11:00 | CT_ITS ---
WS: [id number] CT CHEST TECHNIQUE: Contrast enhanced CT of the chest with coronal and sagittal reformatted images. CLINICAL INFORMATION: lung cancer COMPARISON: CT 04/26/2024 DLP: 233.[address] scans at [facility] use at least one of these dose optimization techniques: automated exposure control; mA and/or kV adjustment per patient size (includes targeted exams where dose is matched to clinical indication); or iterative reconstruction. FINDINGS: Again seen is parenchymal volume loss in the LEFT lung apex with consolidation. Findings compatible with treated neoplasm in the LEFT lung apex. No evidence of progression since the prior examinations. Advanced chronic emphysematous changes. Normal caliber thoracic aorta. RIGHT to LEFT mediastinal shift with volume loss is unchanged. No progressive lymphadenopathy. No axillary lymphadenopathy. Adrenal glands are normal. Tiny esophageal hiatal hernia. CT/CT chest w con* [id number] IMPRESSION: 1. Stable changes of treated neoplasm in the LEFT lung apex with associated co nsolidation and air bronchograms. No evidence of progression. 2. Volume loss LEFT lung is unchanged. 3. Advanced chronic emphysematous changes. 4. No new suspicious abnormalities.
[2024-12-05] MEDS: iohexol 350 mg/mL 500 mL Btl (per mL) IV (11:06)
[2024-12-05 11:15] LABS: Blood Urea Nitrogen 20 mg/dL (8-23); Glomerular Filtration Rate 62.5 mL/min (90-130)
== END 2024-12-27 23:59 | disposition home or self-care (01) ==
LOC: RAD 10:29 → ONCMED 10:51
PROVIDERS: PCP Nurse Practitioner; Visit Provider Internal Medicine Hematology & Oncology
DX: Z53.9 Procedure and treatment not carried out, unspecified reason (principal); C34.12 Malignant neoplasm of upper lobe, left bronchus or lung; C77.9 Secondary and unspecified malignant neoplasm of lymph node, unspecified; Z95.828 Presence of other vascular implants and grafts
CPT/HCPCS: 71260; 82565; 84520

== ENCOUNTER 2025-01-09 09:15 | Oncology outpatient (recurring) (ONCR) | payer OTHER, SELFPAY ==
[2025-01-09 10:10] LABS: Basophils # 0.1 10^3/uL (0.0-0.1); Basophils % 1.6 %; Eosinophils # 0.1 10^3/uL (0.0-0.8); Eosinophils % 2.9 %; Hematocrit 38.5 % (36-47); Lymphocytes # 1.4 10^3/uL (0.8-4.8); Lymphocytes % 32.1 %; Mean Corpuscular HGB Conc 33.8 g/dL (30-55); Mean Corpuscular Hemoglobin 29.5 pg (27-33); Mean Corpuscular Volume 87.5 fl (85-98); Mean Platelet Volume 9.2 fL (7.4-10.4); Monocytes # 0.4 10^3/uL (0.2-0.9); Monocytes % 8.8 %; Neutrophils # 2.38 10^3/uL (1.8-7.7); Neutrophils % 53.7 %; Nucleated Red Blood Cells % 0 %; Platelet Count 190 10^3/cmm (157-399); Red Cell Distribution Width 13.2 % (12.1-15.1); White Blood Count 4.43 10^3/uL (3.29-11.43)
[2025-01-09 10:36] LABS: Alanine Aminotransferase 17 U/L (0-33); Albumin Level 4.6 g/dL (3.5-5.2); Alkaline Phosphatase 63 U/L (35-105); Anion Gap 15.5 (5-19); Aspartate Amino Transferase 26 U/L (0-32); Blood Urea Nitrogen 18 mg/dL (8-23); Calcium 9.6 mg/dL (8.5-10.5); Carbon Dioxide 26 mmol/L (22-29); Chloride 103 mmol/L (98-107); Creatinine Clr Calc Pharmacy 63.2285; Globulin 2.9 g/dL (1.3-4.6); Glomerular Filtration Rate 71.5 mL/min (90-130); Glucose 98 mg/dL (65-115); Lactate Dehydrogenase 161 U/L (135-214); Osmolality Calculated 292 mOsm/kg (285-295); Potassium 4.5 mmol/L (3.5-5.1); Sodium 140 mmol/L (136-145); Total Bilirubin 0.4 mg/dL (0.15-1.2); Total Protein 7.5 g/dL (6.6-8.7)
== END 2025-01-27 23:59 | disposition home or self-care (01) ==
PROVIDERS: PCP Nurse Practitioner; Visit Provider Internal Medicine Hematology & Oncology
DX: Z08 Encounter for follow-up examination after completed treatment for malignant neoplasm (principal); Z85.118 Personal history of other malignant neoplasm of bronchus and lung; Z92.3 Personal history of irradiation
CPT/HCPCS: 36415; 80053; 83615; 85025; 99214

== ENCOUNTER 2025-07-10 11:30 | Oncology outpatient (recurring) (ONCR) | payer OTHER, SELFPAY ==
--- NOTE | 2025-07-03 16:00 | CTR_ITS ---
PROCEDURE INFORMATION: Exam: CT Chest With Contrast; Diagnostic Exam date and time: 07/03/2025 4:44 PM Age: 70 years old Clinical indication: Abnormal findings; Abnormal radiologic exam of lung or chest; Prior surgery; Surgery date: 6+ months; Surgery type: Port in/out; HX of lung cancer; Additional info: Followup November 2024 exam TECHNIQUE: Imaging protocol: Diagnostic computed tomography of the chest with contrast. Radiation optimization: All CT scans at this facility use at least one of these dose optimization techniques: automated exposure control; mA and/or kV adjustment per patient size (includes targeted exams where dose is matched to clinical indication); or iterative reconstruction. Contrast material: OMNI 350; Contrast volume: 100 ml; Contrast route: INTRAVENOUS (IV); COMPARISON: CT chest w con* [id number] 12/05/2024 11:05 AM RADIATION DOSE METRICS: Total DLP (mGy-cm): 235.07 FINDINGS: Thyroid: The thyroid is stable in appearance and low in volume suggesting hypothyroidism. Lungs: Biapical emphysematous changes are again seen and appears stable. A large emphysematous bleb is seen anterior to the ascending aorta, slightly increased in size from the prior study. There is stable left upper lobe parenchymal volume loss with atelectasis and airspace consolidation as well as focal bronchiectatic change. This is consistent with treated neoplasm changes. No new pulmonary abnormalities are present. Pleural spaces: There is some focal pleural thickening in the posterior mid right lung (5/31) has developed from the prior study. This is likely postinflammatory. No pleural effusions are present. Heart: No cardiac abnormalities are evident. Mediastinal space: No mediastinal mass lesions are present. Lymph nodes: No adenopathy is observed. Vasculature: Unremarkable. No aortic aneurysm. Intraperitoneal space: Limited images of the upper abdomen are stable. No adrenal pathology is evident. A tiny hiatus hernia is present and unchanged. Bones/joints: There is no acute fracture, lytic, or blastic lesion. Soft tissues: Unremarkable. CT/CT chest w con* [id number] IMPRESSION: 1. Stable changes in the treated neoplasm in the left lung apex with associated consolidation of the and bronchiectasis. 2. Stable biapical emphysematous change with a slight increase in diameter in the single bleb anterior to the ascending aorta. 3. No visible metastatic disease. COMMENTS: The presence of pulmonary emphysema on CT is an independent risk factor for lung cancer. In the absence of a history or active diagnosis of lung cancer, it is recommended that this patient with emphysema be evaluated for enrollment in a low dose CT lung cancer screening program.
[2025-07-03 16:42] LABS: Blood Urea Nitrogen 19 mg/dL (8-23)
[2025-07-03] MEDS: iohexol 350 mg/mL 500 mL Btl (per mL) IV (16:50)
[2025-07-10 11:42] LABS: Hematocrit 39.2 % (36-47); Hemoglobin 13.20 g/dL (11.27-16.99); Mean Corpuscular HGB Conc 33.7 g/dL (30-55); Mean Corpuscular Hemoglobin 30.1 pg (27-33); Mean Corpuscular Volume 89.5 fl (85-98); Nucleated Red Blood Cells % 0 %; Platelet Count 201 10^3/cmm (157-399); Red Blood Count 4.38 10^6/uL (3.85-5.65); White Blood Count 4.64 10^3/uL (3.29-11.43)
[2025-07-10 12:08] LABS: Alanine Aminotransferase 19 U/L (0-33); Albumin Level 4.5 g/dL (3.5-5.2); Alkaline Phosphatase 70 U/L (35-105); Anion Gap 14.1 (5-19); Aspartate Amino Transferase 27 U/L (0-32); Blood Urea Nitrogen 22 mg/dL (8-23); Calcium 9.8 mg/dL (8.5-10.5); Carbon Dioxide 29 mmol/L (22-29); Chloride 102 mmol/L (98-107); Globulin 3.0 g/dL (1.3-4.6); Glucose 115 mg/dL (65-115); Osmolality Calculated 296 mOsm/kg (285-295); Potassium 4.1 mmol/L (3.5-5.1); Sodium 141 mmol/L (136-145); Total Protein 7.5 g/dL (6.6-8.7)
== END 2025-07-29 23:59 | disposition home or self-care (01) ==
PROVIDERS: Nurse Practitioner; Nurse Practitioner Family; PCP Nurse Practitioner; Visit Provider Internal Medicine Medical Oncology
DX: Z08 Encounter for follow-up examination after completed treatment for malignant neoplasm; Z85.118 Personal history of other malignant neoplasm of bronchus and lung; Z92.3 Personal history of irradiation; Z87.891 Personal history of nicotine dependence; Z92.21 Personal history of antineoplastic chemotherapy; Z92.25 Personal history of immunosuppression therapy; Z53.9 Procedure and treatment not carried out, unspecified reason
CPT/HCPCS: 36415; 71260; 80053; 82565; 83615; 84520; 85025; 99214

== ENCOUNTER 2025-08-28 07:39 | Outpatient (CLI) | payer OTHER, SELFPAY ==
--- NOTE | 2025-08-28 07:45 | MM_ITS ---
WS: [id number] BILATERAL 3D TOMOSYNTHESIS DIGITAL SCREENING MAMMOGRAPHY WITH CAD CLINICAL INFORMATION: ANNUAL SCREENING HISTORY: Screening mammogram. No current complaints. COMPARISON: 2023 TECHNIQUE: Bilateral CC and MLO views. FINDINGS: The breasts are composed of heterogeneous fibroglandular density tissue, which can limit the detection of small underlying mass lesions. No suspicious mass, asymmetry, calcifications, or architectural distortion. No evidence of malignancy. Clustered calcifications upper outer RIGHT breast. Incidental p unctate calcifications. MM/MM [facility] tomosynthesis [id number] IMPRESSION: DENSITY: The breasts are heterogeneously dense, which may obscure small masses. BI-RADS: 2 - Benign FOLLOW UP: 1 Year Follow-up Recommend return to annual screening mammography.
== END 2025-08-28 07:40 | disposition home or self-care (01) ==
LOC: RAD 07:40
PROVIDERS: PCP Nurse Practitioner; Visit Provider Nurse Practitioner
DX: Z12.31 Encounter for screening mammogram for malignant neoplasm of breast (principal); R92.323 Mammographic fibroglandular density, bilateral breasts; R92.333 Mammographic heterogeneous density, bilateral breasts; R92.1 Mammographic calcification found on diagnostic imaging of breast
CPT/HCPCS: 77063; 77067